=== PATIENT | female | born 1935 | race African-American/Black ===

== ENCOUNTER 2017-07-11 12:03 | Observation (INO) | payer MEDICARE, MEDICAID ==
[2017-07-11 12:43] LABS: #Eosinphils 0.1 thou/uL (0.0-0.7); #Lymphocytes 1.5 thou/uL (1.20-3.40); #Neutrophils 8.9 thou/uL (1.40-6.50); %Basophils 0.2 % (0.0-1.0); %Lymphocytes 12.7 % (21.0-51.0); %Neutrophils 77.1 % (42.0-75.0); Hemoglobin 8.9 g/dL (12.0-16.0); Mean Corpuscular HGB CONC 29.9 g/dL (32.0-36.0); Mean Corpuscular Hemoglobin 26.3 pg (27.0-31.0); Mean Platelet Volume 6.3 fL (7.4-10.4); Platelet Count 329 thou/uL (130-400); RBC Distribution Width 11.3 % (11.5-14.5); White Blood Cell (WBC) Count 11.5 thou/uL (4.8-10.8)
[2017-07-11 13:00] LABS: Hypochromia SLIGHT = 6-15 cells (100X) (0-5/hpf); MDiff Complete? YES; PLT Morphology Comment Appears Adequate; Polychromasia SLIGHT = 2-3 cells (100X) (0-2/hpf)
[2017-07-11 13:13] LABS: CKMB 0.4 ng/mL (0-6.6); Troponin I Less than 0.010 ng/mL (< 0.028)
[2017-07-11 13:19] LABS: Anion Gap 15 mmol/L (10-20); BUN (Urea Nitrogen) 18 mg/dL (9.8-20.1); Calc. Creatinine Clearance 0 mL/min (70-130); Calcium 9.5 mg/dL (7.8-10.44); Carbon Dioxide 24 mmol/L (23-31); Chloride 95 mmol/L (98-107); Estimated GFR-MDRD 60; Glucose 128 mg/dL (83-110); Potassium 3.5 mmol/L (3.5-5.1); Sodium 130 mmol/L (136-145)
[2017-07-11 13:33] LABS: Bilirubin Negative (Negative); Blood, Urine Negative (Negative); Clarity CLOUDY (Clear); Glucose, Urine (Dipstick) Negative (Negative); Leukocyte Negative (Negative); Nitrite Negative (Negative); Protein, Urine (Dipstick) Negative (Neg-Trace); Urobilinogen 0.2 mg/dL (0.2-1.0); pH, Urine 6.5 (5.0-9.0)
[2017-07-11 16:22] LABS: Lactic Acid 4.8 mmol/L (0.5-2.2)
[2017-07-11] MEDS ORDERED: Acetaminophen 325 MG TAB PO PRN (19:18)
[2017-07-11] MEDS ORDERED: Ondansetron HCl/PF 4 MG/2 ML Vial IVP PRN (19:18)
[2017-07-11] MEDS ORDERED: Ondansetron ODT 4 MG TAB SL PRN (19:18)
[2017-07-11 19:39] VITALS: BMI 38.7
[2017-07-12] MEDS ORDERED: HYDROcodone/Acetaminophen 5/325 mg Tablet PO PRN (04:02)
[2017-07-12] MEDS ORDERED: Ondansetron ODT 4 MG TAB PO PRN (04:02)
[2017-07-12] MEDS ORDERED: Acetaminophen 325 MG TAB PO PRN (04:02)
[2017-07-12] MEDS ORDERED: Sodium Chloride 0.9% 1,000 ML IV SCH (04:02)
[2017-07-12] MEDS ORDERED: Enoxaparin Sodium 30 MG/0.3 ML SYRINGE SC SCH (04:15)
[2017-07-12 05:31] LABS: #Basophils 0.1 thou/uL (0.0-0.2); #Eosinphils 0.2 thou/uL (0.0-0.7); #Lymphocytes 1.6 thou/uL (1.20-3.40); #Monocytes 1.1 thou/uL (0.11-0.59); %Basophils 0.7 % (0.0-1.0); %Eosinophils 1.6 % (0.0-10.0); %Lymphocytes 14.9 % (21.0-51.0); %Monocytes 10.1 % (0.0-10.0); %Neutrophils 72.8 % (42.0-75.0); Hemoglobin 8.6 g/dL (12.0-16.0); Mean Corpuscular HGB CONC 30.8 g/dL (32.0-36.0); Mean Corpuscular Hemoglobin 26.8 pg (27.0-31.0); Mean Corpuscular Volume 87.1 fl (81.0-99.0); Mean Platelet Volume 6.6 fL (7.4-10.4); Platelet Count 337 thou/uL (130-400); RBC Distribution Width 11.3 % (11.5-14.5); Red Blood Cell (RBC) Count 3.22 mill/uL (4.20-5.40)
[2017-07-12 06:06] LABS: Anion Gap 13 mmol/L (10-20); BUN (Urea Nitrogen) 16 mg/dL (9.8-20.1); Calc. Creatinine Clearance 62 mL/min (70-130); Calcium 9.6 mg/dL (7.8-10.44); Carbon Dioxide 27 mmol/L (23-31); Chloride 100 mmol/L (98-107); Estimated GFR-MDRD 65; Glucose 95 mg/dL (83-110); Magnesium 1.1 mg/dL (1.6-2.6); Potassium 3.5 mmol/L (3.5-5.1); Sodium 136 mmol/L (136-145)
[2017-07-12] MEDS ORDERED: Temazepam 15 MG CAP PO PRN (10:00)
[2017-07-12] MEDS ORDERED: Levothyroxine Sodium 75 MCG TAB PO SCH ×2 (10:00→11:00)
[2017-07-12] MEDS ORDERED: Metoprolol Tartrate 50 MG TAB PO SCH ×3 (10:01→21:00)
[2017-07-12] MEDS ORDERED: Losartan/Hydrochlorothiazide 100 mg/25 mg Tablet PO SCH ×2 (10:01→11:00)
[2017-07-12] MEDS ORDERED: Non-Formulary Item 1 EACH (Risperidone [Risperidone] 2 MG) PO SCH (10:01)
--- NOTE | 2017-07-12 10:53 | HP ---
PRIMARY CARE PHYSICIAN: Brian Tavarez M.D. HISTORY OF PRESENT ILLNESS: This is an 82-year-old female with a known history of hypertension, CHF, hypothyroidism, type 2 diabetes and chronic stage 3 renal disease who presents with a chief complaint of hypotension. It appears that the patient has been struggling with hypertension and has been newly started on outpatient medications earlier in the day - amlodipine. She was brought into the Emergency Department with generalized feelings of unwellness. At the time of my evaluation, the patient has been given of fluid resuscitation. Her vital signs are stable and she reports feeling significantly better. Her [id number] is with her at bedside. REVIEW OF SYSTEMS: As per HPI. Constitutional: No recent fevers or chills. No recent weight changes. HEENT: No recent headaches, dizziness or blurry vision that are new. Cardiovascular: No chest pain, chest pressure, shortness of breath, left-sided arm numbness or tingling or diaphoretic episodes. Respiratory: No recent sinusitis, cough, congestion, shortness of breath, dyspnea with exertion. Gastrointestinal: No recent nausea, vomiting, abdominal discomfort, diarrhea or constipation. The patient reports a retained appetite. Genitourinary: No new change in urinary frequency quantity or quality. Denies dysuria. Musculoskeletal: Other than generalized fatigue, malaise. No myalgias or arthralgias. Remainder of review of systems otherwise negative. PAST MEDICAL HISTORY: As above, includes the following; 1. Obesity. 2. Hypertension. 3. CHF. 4. Obstructive sleep apnea, on CPAP. 5. Hypothyroidism. 6. Type 2 diabetes. 7. Chronic kidney disease. 8. Depression. FAMILY HISTORY: No known history of blood pressure lability, but does have a family history of hypertension. HOME MEDICATIONS: Please see EMR for full details other than the amlodipine, which was started earlier today. No recent changes to her home medications regimen over the last 2 weeks. Patient states she takes her own medications daily directly from the medication bottles and does not use a pill organizer. ALLERGIES: CIMETIDINE, unknown reaction. SOCIAL HISTORY: The patient is here with family. She lives at home. She endorses being a FULL CODE at this point in time. Denies any active alcohol, tobacco or illicit drug use. PHYSICAL EXAMINATION: VITAL SIGNS: Temperature 97.6, heart rate of 60, respirations 16, satting 96% on 2 liters nasal cannula and blood pressure 179/84. GENERAL: The patient is awake, alert and appropriate, seen in the hospital bed , provides a reasonable history. No acute distress. HEENT: Moist mucous membrane. Equal ocular motions are intact. No posterior oropharyngeal exudates or erythema. CARDIOVASCULAR: S1 and S2. Soft heart tones. A 3/5 systolic ejection murmur appreciated, nonradiating. Pulses 2+ bilateral upper extremities. No pitting pedal edema. RESPIRATORY: Grossly clear to auscultation. No wheezes, rales or rhonchi. Reasonable air movement. ABDOMEN: Obese, large, nontender to palpation. Bowel sounds are present. MUSCULOSKELETAL: Moving all 4 extremities independently. LABORATORY DATA AND IMAGING DATA: WBC 11.5, hemoglobin 8.9, hematocrit 29.9, platelets 329, neutrophils 77.1. Sodium 130, potassium 3.5, chloride 95, bicarbonate 24, BUN 18, creatinine 1.06, glucose 128, lactic acid is 4.8 and calcium 9.5. Troponin less than 0.01. UA is bland. ASSESSMENT AND PLAN: An 82-year-old female presents with chief complaint of; 1. Feeling poorly, status post new amlodipine. She was found to be hypotensive in the Emergency Department. At the time of presentation, she is currently normotensive. Continue with her home regimen. Hold amlodipine. Closely monitor vital signs. 2. Hypertension. See discussion above. 3. Known history of type 2 diabetes. Continue the patient on her home regimen. 4. Patient has a history of congestive heart failure. Cautious fluid resuscitation and close monitoring of her respiratory status. 5. Obesity, stable. 6. Anemia, suspect a chronic component. This patient is otherwise hemodynamically stable. We will recheck and evaluate for any evidence of a bleed. 7. Elevated lactic acid. Unclear etiology as the patient is otherwise clinically stable. We will recheck at this point in time and closely monitor for clearance. Admit the patient in observation status with telemetry observation, FULL CODE. Thank you for asking me to care for the patient. Questions or concerns, contact me at [facility]. [facility]ENTER[facility]
[2017-07-12] MEDS ORDERED: risperiDONE 1 MG TAB PO SCH ×2 (11:00→21:00)
[2017-07-12 11:03] LABS: Lactic Acid 1.9 mmol/L (0.5-2.2)
[2017-07-12] MEDS ORDERED: Furosemide 20 MG TAB PO PRN (14:00)
[2017-07-12 14:58] VITALS: BP 143/78; TEMP 98.4
[2017-07-13] MEDS ORDERED: Levothyroxine Sodium 75 MCG TAB PO SCH (06:00)
[2017-07-13] MEDS ORDERED: Ferrous Sulfate 325 MG TAB PO SCH (09:00)
[2017-07-13] MEDS ORDERED: Losartan/Hydrochlorothiazide 100 mg/25 mg Tablet PO SCH (09:00)
[2017-07-13] MEDS ORDERED: Simvastatin 5 MG TAB PO SCH (09:00)
[2017-07-15] MEDS ORDERED: metFORMIN 500 MG TAB PO SCH (08:00)
== END 2017-07-12 16:00 | disposition home or self-care (01) ==
LOC: ERS 12:03 → 2SW 19:01
PROVIDERS: ADMIT Internal Medicine; ATTEND Internal Medicine
DX: I95.9 Hypotension, unspecified (principal); I13.0 Hypertensive heart and chronic kidney disease with heart failure and stage 1 through stage 4 chronic kidney disease, or unspecified chronic kidney disease; E11.22 Type 2 diabetes mellitus with diabetic chronic kidney disease; N18.3 Chronic kidney disease, stage 3 (moderate); I50.9 Heart failure, unspecified; E03.9 Hypothyroidism, unspecified; G47.33 Obstructive sleep apnea (adult) (pediatric); F32.9 Major depressive disorder, single episode, unspecified; R74.0 Nonspecific elevation of levels of transaminase and lactic acid dehydrogenase [LDH]; F20.9 Schizophrenia, unspecified; Z99.89 Dependence on other enabling machines and devices; E66.9 Obesity, unspecified; Z68.38 Body mass index [BMI] 38.0-38.9, adult; Z87.891 Personal history of nicotine dependence; Z79.84 Long term (current) use of oral hypoglycemic drugs; Z79.899 Other long term (current) drug therapy; Z88.8 Allergy status to other drugs, medicaments and biological substances; Z95.0 Presence of cardiac pacemaker; Z90.49 Acquired absence of other specified parts of digestive tract
CPT/HCPCS: 80048 ×2; 81003; 82553; 83605 ×2; 83735; 84484; 85025 ×2; 93005; 96360; 96372; 97139; 99285; G0378; 36415; J1650

== ENCOUNTER 2017-07-27 04:15 | Observation (INO) | payer MEDICARE, MEDICAID ==
[2017-07-27 04:55] LABS: #Eosinphils 0.4 thou/uL (0.0-0.7); #Lymphocytes 1.9 thou/uL (1.20-3.40); #Monocytes 0.9 thou/uL (0.11-0.59); %Basophils 0.4 % (0.0-1.0); %Eosinophils 3.5 % (0.0-10.0); %Lymphocytes 18.5 % (21.0-51.0); %Monocytes 8.7 % (0.0-10.0); %Neutrophils 68.9 % (42.0-75.0); Hemoglobin 9.7 g/dL (12.0-16.0); Mean Corpuscular HGB CONC 31.4 g/dL (32.0-36.0); Mean Corpuscular Hemoglobin 26.9 pg (27.0-31.0); Mean Corpuscular Volume 85.8 fl (81.0-99.0); Mean Platelet Volume 6.7 fL (7.4-10.4); Platelet Count 339 thou/uL (130-400); RBC Distribution Width 11.8 % (11.5-14.5); Red Blood Cell (RBC) Count 3.61 mill/uL (4.20-5.40); White Blood Cell (WBC) Count 10.1 thou/uL (4.8-10.8)
[2017-07-27 05:13] LABS: ALT (SGPT) 13 U/L (8-55); AST (SGOT) 26 U/L (5-34); Alkaline Phosphatase 66 U/L (40-150); Anion Gap 18 mmol/L (10-20); BUN (Urea Nitrogen) 17 mg/dL (9.8-20.1); Bilirubin, Total 0.4 mg/dL (0.2-1.2); Calc. Creatinine Clearance 0 mL/min (70-130); Calcium 9.4 mg/dL (7.8-10.44); Carbon Dioxide 23 mmol/L (23-31); Chloride 97 mmol/L (98-107); Estimated GFR-MDRD 61; Globulin 3.6 g/dL (2.4-3.5); Glucose 119 mg/dL (83-110); Potassium 4.5 mmol/L (3.5-5.1); Protein, Total 7.6 g/dL (6.0-8.3); Sodium 133 mmol/L (136-145)
[2017-07-27 05:17] LABS: CKMB 0.5 ng/mL (0-6.6); Troponin I Less than 0.010 ng/mL (< 0.028)
[2017-07-27] MEDS ORDERED: Furosemide 40 MG/4 ML VIAL ONE (05:39)
[2017-07-27] MEDS ORDERED: Nitroglycerin 2% Ointment 1 INCH/1 GM Packet ONE (05:39)
[2017-07-27] MEDS ORDERED: Loratadine 10 MG TAB PO PRN (07:56)
[2017-07-27] MEDS ORDERED: cloNIDine 0.1 MG TAB PO PRN (07:56)
[2017-07-27] MEDS ORDERED: Acetaminophen 325 MG TAB PO PRN (07:56)
[2017-07-27] MEDS ORDERED: Benzonatate 100 MG CAP PO PRN (07:56)
[2017-07-27] MEDS ORDERED: hydrALAZINE 20 MG/ML VIAL SLOW IVP PRN (07:56)
[2017-07-27] MEDS ORDERED: HumaLOG 300 UNITS/3 ML VIAL SC PRN ×2 (07:56)
[2017-07-27] MEDS ORDERED: Milk Of Magnesia 30 ML UDCUP PO PRN (07:56)
[2017-07-27] MEDS ORDERED: Dextrose 50% Abboject 50 ML SYRINGE SLOW IVP PRN (07:56)
[2017-07-27] MEDS ORDERED: Diabetic Tussin 200 MG/10 ML UDCUP PO PRN (07:56)
[2017-07-27] MEDS ORDERED: Senokot 8.6 MG TAB PO PRN (07:56)
[2017-07-27] MEDS ORDERED: Calcium Carbonate 500 MG ChewTAB PO PRN (07:56)
[2017-07-27] MEDS ORDERED: Ondansetron HCl/PF 4 MG/2 ML Vial IVP PRN ×2 (07:56)
[2017-07-27] MEDS ORDERED: Mag-Al 1200 mg/1200 mg/30 ML UDCUP PO PRN (07:56)
[2017-07-27] MEDS ORDERED: Dextrose 5% in Water 1,000 ML IV PRN (07:56)
[2017-07-27] MEDS ORDERED: Bisacodyl 5 MG TAB PO PRN (07:56)
[2017-07-27] MEDS ORDERED: Nitroglycerin 0.4 MG TAB (25 Tab Bottle) SL PRN (07:56)
[2017-07-27 08:11] VITALS: BMI 38.0
[2017-07-27] MEDS ORDERED: Temazepam 15 MG CAP PO PRN (09:13)
--- NOTE | 2017-07-27 09:34 | RAD ---
RADIOGRAPH CHEST 1 VIEW: Date: 07/27/17. Time: 4:48 a.m. HISTORY: An 82-year-old female with dyspnea. COMPARISON: 01/09/17. FINDINGS: Cardiomegaly. Pulmonary vascular engorgement. Diffuse mild interstitial densities suspicious for pu lmonary interstitial edema. No pneumothorax. Left subclavian pacemaker. Findings are very similar to the prior study. IMPRESSION: Evidence for congestive heart failure. LUNA [] POS: YNES
[2017-07-27] MEDS ORDERED: Levothyroxine Sodium 75 MCG TAB PO SCH (10:00)
[2017-07-27] MEDS ORDERED: Metoprolol Tartrate 100 MG TAB PO SCH ×2 (10:00→10:09)
[2017-07-27] MEDS ORDERED: Ferrous Sulfate 325 MG TAB PO SCH (10:00)
[2017-07-27] MEDS ORDERED: risperiDONE 1 MG TAB PO SCH (10:00)
[2017-07-27] MEDS: Enoxaparin Sodium 40 MG/0.4 ML SYRINGE SC SCH (10:07)
[2017-07-27] MEDS: Losartan/Hydrochlorothiazide 100 mg/25 mg Tablet PO SCH (10:09)
--- NOTE | 2017-07-27 11:04 | HP ---
PRIMARY CARE PHYSICIAN: Dr. Brian Tavarez. CHIEF COMPLAINT: Worsening shortness of breath. HISTORY OF PRESENT ILLNESS: Ms. Velasco is a very pleasant 82-year-old female with past medical histor y of diastolic congestive heart failure; hypertension; obstructive sleep apnea, on CPAP at night; chr onic kidney disease, stage 3; pacemaker placement due to sick sinus syndrome; and chronic respiratory failure, on home oxygen; who presented to the ER with the above-mentioned complaints. History is ma inly obtained by the patient herself, who is a little bit of a poor historian. Electronic medical re cords have been reviewed. The patient was actually recently admitted to our facility last month on 0 07/12/2017, at which time she was observed for low blood pressure after being started on new blood pre ssure medications. She was discharged without any problems at that time. Ms. Velasco reports that lately she has been noticing that moving around out of the house is becoming d ifficult for her. She wears her oxygen all the time when moving around, but she is getting more and more short of breath. She used to walk to her daughter's house in the neighborhood, but lately she h as not been able to do that and even walking around in the house is becoming problematic due to worse meena shortness of breath. She also reports a hacking cough, but denies any sick contacts, fever, chi lls, or phlegm production. She denies any chest pain. She lays on her side and cannot tell me if sh daryl has any orthopnea. She has not noticed any excessive swelling of her feet. She has seen Dr. Lopez from the Cardiology office in the past and has Lasix ordered to be used as needed basis. She, virgilemeterio balbir, has used it only probably once in the last 2-3 weeks. She also has history of restrictive lung di sease and follows up with Dr. Alexis and uses inhalers sparingly. She has used the inhalers, only f ew times in the last few weeks. Upon presentation to the emergency room, she was hemodynamically stable. She was given 1 DuoNeb en r oute and felt better by the time she presented to the ER. A chest x-ray done in the emergency room w as suggestive of fluid overload and she was found to be somewhat wheezy on presentation. She had non specific ST and T-wave changes in the EKG as well. She was given Lasix and transdermal nitroglycerin and is now being admitted for possible acute congestive heart failure exacerbation. Her BNP is mild ly elevated to 146. PAST MEDICAL HISTORY: 1. Chronic diastolic congestive heart failure. The patient does not remember being told about the C HF before. She had an echocardiogram done in 12/2016, which suggested diastolic dysfunction with pre served EF of 65%. 2. Diabetes mellitus, type 2. 3. Obstructive sleep apnea, on CPAP at night. 4. Chronic respiratory failure, on home oxygen. 5. Hypertension. 6. Hypothyroidism. 7. Sick sinus syndrome, status post pacemaker placement. 8. Chronic kidney disease. 9. History of esophageal stricture, status post dilatation in 2016. 10. Depression. PAST SURGICAL HISTORY: 1. Pacemaker placement. 2. EGD and colonoscopy. 3. Cholecystectomy. 4. Appendectomy. ALLERGIES: Cimetidine. FAMILY HISTORY: Mother of pneumonia. Father of old age. No history of stroke, heart dise ase, or cancer. SOCIAL HISTORY: She lives by herself, but her children live close by. She ambulates freely without the help of a walker and is able to take care of herself. CURRENT HOME MEDICATIONS: Listed as below. Zocor 10 mg daily, Lopressor 100 mg b.i.d., losartan/hyd rochlorothiazide 100/25 mg daily, levothyroxine 75 mcg daily, isosorbide mononitrate 60 mg daily, iro n 65 mg daily, Lasix 20 mg as needed, risperidone 2 mg p.o. b.i.d., metformin 500 mg p.o. t.i.d., tem azepam 15 mg at bedtime as needed. REVIEW OF SYSTEMS: The following complete review of systems was negative, unless otherwise mentioned in the HPI or below: Constitutional: Weight loss or gain, ability to conduct usual activities. Sk in: Rash, itching. Eyes: Double vision, pain. ENT/Mouth: Nose bleeding, neck stiffness, pain, te nderness. Cardiovascular: Palpitations, dyspnea on exertion, orthopnea. Respiratory: Shortness of breath, wheezing, cough, hemoptysis, fever, or night sweats. Gastrointestinal: Poor appetite, abdo viji pain, heartburn, nausea, vomiting, constipation, or diarrhea. Genitourinary: Urgency, frequen cy, dysuria, nocturia. Musculoskeletal: Pain, swelling. Neurologic/Psychiatric: Anxiety, depressi on. Allergy/Immunologic: Skin rash, bleeding tendency. It is negative except for those mentioned i n history and physical. LABORATORY EXAMINATION: CBC shows WBCs at 10.1, hemoglobin 9.7, platelet count of 337. No left shif t, no bandemia. Serum chemistry is rather unremarkable. Cardiac enzymes normal. BNP 146 and blood sugar 119. Chest x-ray, by my review, has evidence of fluid overload without any effusions or infilt rate. PHYSICAL EXAMINATION: VITAL SIGNS: Most recently, temperature 97.7, pulse of 62, respirations 22, saturating 96% on 2 lite rs nasal cannula, blood pressure 143/94. GENERAL EXAMINATION: In no acute distress, lying comfortably in bed. Family is at bedside. Awake, alert, oriented x3. HEENT EXAMINATION: Mucous membrane is moist and pink. No oropharyngeal exudate or erythema. Head i s normocephalic, atraumatic. Pupils equal and reactive to light and accommodation. Extraocular move ment intact. NECK: Supple without any lymphadenopathy, JVD, or bruit. CHEST EXAMINATION: Revealed bibasilar crackles, left greater than right, without any significant whe ezing. No rhonchi. Rate and rhythm is regular without any murmur, rubs, or gallops. ABDOMEN: Soft, nontender, nondistended with positive bowel sounds. No guarding, rebound, or rigidit y. EXTREMITIES: Free of any cyanosis, clubbing, or edema. SKIN: Free of any rashes or bruises. Feel warm and dry to touch. PSYCHIATRIC: Normal affect. IMPRESSION AND PLAN: 1. Dyspnea, most likely secondary to acute diastolic congestive heart failure exacerbation. There i s no evidence to suggest pneumonia. She also has some component of exacerbation of her restrictive l candis disease. She will be diuresed with close monitoring of her renal function and strict I's and O's . At this time, we will not repeat the echocardiogram, as it was recently done in 12/2016. She will be treated with nebulizers as well on an as needed basis and scheduled basis. Further management wi ll depend upon her clinical response. I have encouraged her to go back and follow up with her cardio logist in the outpatient setting, and at this time, we will continue her home medications. 2. History of obstructive sleep apnea. Continue CPAP while in the hospital at bedtime. 3. History of hypertension. We will resume her home medications including the isosorbide, amlodipin e, and beta shai and monitor closely. 4. Chronic anemia, stable. 5. History of hypothyroidism. We will resume her levothyroxine. 6. Diabetes mellitus. We will hold the metformin to prevent further renal injury given the diuresis at this time. Add insulin sliding scale. 7. History of sick sinus syndrome, status post pacemaker placement. 8. Code status: FULL CODE. Discussed with the patient in detail. 9. Deep venous thrombosis and gastrointestinal prophylaxis and p.r.n. medication orders. DISPOSITION: Ms. Janice Velasco is being admitted for mild acute diastolic congestive heart failure exace rbation. We will have her evaluated by physical therapist and occupational therapist. ESTIMATED LENGTH OF STAY: At this time is less than 2 midnights. Further management will depend upo n her clinical course.
[2017-07-27] MEDS: Furosemide 40 MG/4 ML VIAL SLOW IVP SCH (14:43)
[2017-07-27] MEDS: risperiDONE 1 MG TAB PO SCH (20:16)
[2017-07-27] MEDS: Metoprolol Tartrate 100 MG TAB PO SCH (20:16)
[2017-07-27] MEDS ORDERED: Simvastatin 5 MG TAB PO SCH (21:00)
[2017-07-28 05:42] LABS: #Basophils 0.1 thou/uL (0.0-0.2); #Eosinphils 0.3 thou/uL (0.0-0.7); #Lymphocytes 1.9 thou/uL (1.20-3.40); #Monocytes 1.1 thou/uL (0.11-0.59); #Neutrophils 7.7 thou/uL (1.40-6.50); %Basophils 0.5 % (0.0-1.0); %Eosinophils 2.8 % (0.0-10.0); %Lymphocytes 17.3 % (21.0-51.0); %Monocytes 10.1 % (0.0-10.0); %Neutrophils 69.3 % (42.0-75.0); Hemoglobin 9.7 g/dL (12.0-16.0); Mean Corpuscular HGB CONC 30.1 g/dL (32.0-36.0); Mean Corpuscular Volume 86.3 fl (81.0-99.0); Mean Platelet Volume 6.5 fL (7.4-10.4); Platelet Count 361 thou/uL (130-400); RBC Distribution Width 11.8 % (11.5-14.5); Red Blood Cell (RBC) Count 3.71 mill/uL (4.20-5.40); White Blood Cell (WBC) Count 11.1 thou/uL (4.8-10.8)
[2017-07-28 06:00] LABS: Anion Gap 16 mmol/L (10-20); BUN (Urea Nitrogen) 23 mg/dL (9.8-20.1); Calc. Creatinine Clearance 42 mL/min (70-130); Carbon Dioxide 30 mmol/L (23-31); Chloride 93 mmol/L (98-107); Estimated GFR-MDRD 43; Glucose 135 mg/dL (83-110); Potassium 3.6 mmol/L (3.5-5.1); Sodium 135 mmol/L (136-145)
[2017-07-28] MEDS ORDERED: Levothyroxine Sodium 75 MCG TAB PO SCH (06:00)
[2017-07-28] MEDS: Furosemide 40 MG/4 ML VIAL SLOW IVP SCH (06:49)
[2017-07-28 07:55] VITALS: TEMP 97.7
[2017-07-28] MEDS ORDERED: Ferrous Sulfate 325 MG TAB PO SCH (09:00)
[2017-07-28] MEDS: Metoprolol Tartrate 100 MG TAB PO SCH (09:55)
[2017-07-28] MEDS: Enoxaparin Sodium 40 MG/0.4 ML SYRINGE SC SCH (09:55)
[2017-07-28] MEDS: risperiDONE 1 MG TAB PO SCH (09:55)
[2017-07-28] MEDS: Losartan/Hydrochlorothiazide 100 mg/25 mg Tablet PO SCH (09:55)
[2017-07-28 11:38] VITALS: BP 136/67
--- NOTE | 2017-07-28 23:00 | DIS ---
DATE OF ADMISSION: 07/27/2017 DATE OF DISCHARGE: 07/28/2017 CONDITION AT THE TIME OF DISCHARGE: Stable and improved. DISCHARGE DIAGNOSES: 1. Mild acute on chronic diastolic congestive heart failure. 2. Mild exacerbation of restrictive airway disease, likely pulmonary fibrosis. 3. Diabetes mellitus, type 2. 4. Chronic respiratory failure, on home oxygen. 5. Obstructive sleep apnea, uses CPAP at home at night. 6. Hypertension. 7. Hypothyroidism. 8. Sick sinus syndrome, status post pacemaker placement. 9. Chronic kidney disease. 10. Depression. DISCHARGE MEDICATIONS: Home medications remain the same as admission medications. No changes were m alistair. Please see admission history and physical for further details. New medications are as follows: DuoNeb 3 mL nebulizer as needed every 6 hours and albuterol inhaler 1 puff every 6 hours as needed. The patient is instructed to take her Lasix 20 mg as needed basis. IN-HOUSE CONSULTATIONS: None. PROCEDURES: Done in the hospital, chest x-ray upon presentation, which showed pulmonary vascular con gestion. DISCHARGE DISPOSITION: Home with [facility]. PRIMARY CARE PHYSICIAN: Dr. Brian Tavarez. DISCHARGE FOLLOWUP: 1. PCP. 2. Pulmonary medicine, Dr. Alexis. 3. Cardiology, Dr. Freddie Lopez. HISTORY OF PRESENT ILLNESS: Ms. Janice Velasco is a very pleasant 82-year-old female with history of pulm onary fibrosis; chronic diastolic congestive heart failure; diabetes; chronic sleep apnea; and chroni c respiratory failure, on home oxygen, who presented to the emergency room with complaints of worseni ng shortness of breath of 2-3 week duration. Her BNP was mildly elevated at 146 and her chest x-ray showed mild pulmonary vascular congestion. She was admitted with a presumptive diagnosis of acute on chronic congestive heart failure, which is largely diastolic in nature based on the echo done in 2016. Please see admission history and physical for further details. The patient was started on IV diuretics and had very good response to it. She was back to her baseli ne very quickly. Her renal function did worsen somewhat with the diuresis with her GFR dropping from 61-43 and her creatinine bumped up from 1.04-1.42. At this time, Lasix was discontinued. The patie nt was ambulatory in the hallways with the help of the physical therapist. Home health was arranged for her as per her request. At the time of discharge, I discussed that she needs to follow up with her regional facilities manager to discuss he r chronic diastolic congestive heart failure, maybe need to start using her Lasix on a more frequent basis and not wait for weeks before taking it. With also regard to her history of chronic restrictiv e lung disease, I gave her prescription for inhalers and nebulizers to use as needed basis and follow up with her primary bleacher sulfite pulp, Dr. Alexis, in the clinic in the next few weeks. She verbalized understanding and reports that she is back to her baseline and ready to be discharged home. PHYSICAL EXAMINATION: She was seen and examined prior to discharge. Her physical exam includes, VITAL SIGNS: Temperature 97.7, pulse of 64, respirations 20, saturating 96% on 2 liters nasal cannul a, blood pressure of 136/67. GENERAL: In no acute distress, awake, alert, oriented x3. CHEST: Clear to auscultation without any wheezing, rales, or rhonchi. Rate and rhythm is regular wi thout any murmur, rubs, or gallops. ABDOMEN: Soft, nontender, nondistended. EXTREMITIES: Free of any cyanosis, clubbing, or edema. She will follow up with primary care physician in few days with outpatient BMP in 2 days to monitor h er renal function level. I have instructed her not to take the Lasix for the next few days and call her primary care physician if she has worsening shortness of breath and use her inhalers and nebulize rs. She verbalized understanding.
== END 2017-07-28 11:52 | disposition home or self-care (01) ==
LOC: ERS 04:15 → 2SW 06:01
PROVIDERS: ADMIT Internal Medicine; ATTEND Internal Medicine
DX: I13.0 Hypertensive heart and chronic kidney disease with heart failure and stage 1 through stage 4 chronic kidney disease, or unspecified chronic kidney disease (principal); E11.22 Type 2 diabetes mellitus with diabetic chronic kidney disease; I50.33 Acute on chronic diastolic (congestive) heart failure; N18.3 Chronic kidney disease, stage 3 (moderate); J45.901 Unspecified asthma with (acute) exacerbation; J96.10 Chronic respiratory failure, unspecified whether with hypoxia or hypercapnia; G47.33 Obstructive sleep apnea (adult) (pediatric); E03.9 Hypothyroidism, unspecified; I49.5 Sick sinus syndrome; F32.9 Major depressive disorder, single episode, unspecified; J84.10 Pulmonary fibrosis, unspecified; Z99.81 Dependence on supplemental oxygen; Z99.89 Dependence on other enabling machines and devices; Z88.8 Allergy status to other drugs, medicaments and biological substances; Z79.84 Long term (current) use of oral hypoglycemic drugs; Z79.899 Other long term (current) drug therapy; Z95.0 Presence of cardiac pacemaker; Z90.49 Acquired absence of other specified parts of digestive tract; Z98.890 Other specified postprocedural states
CPT/HCPCS: 71045; 80048; 80053; 82553; 82962; 83880; 84484; 85025 ×2; 93005; 94640 ×3; 96372; 96374; 96376 ×2; 97116; 97139; 99285; G0378; G8978; G8979; G8980; 36415; 36416; J1650; J1940; J7620

== ENCOUNTER 2017-08-18 13:53 | Observation (INO) | payer MEDICARE, MEDICAID ==
[~2017-08-18 13:53] MED LIST: ISOVUE-370 76%-LOCM 1 ML ONE
[2017-08-18 14:11] LABS: Hemoglobin 9.2 g/dL (12.0-16.0); Mean Corpuscular HGB CONC 31.5 g/dL (32.0-36.0); Mean Corpuscular Hemoglobin 27.8 pg (27.0-31.0); Mean Corpuscular Volume 88.5 fl (81.0-99.0); Mean Platelet Volume 6.8 fL (7.4-10.4); Platelet Count 314 thou/uL (130-400); RBC Distribution Width 11.7 % (11.5-14.5); Red Blood Cell (RBC) Count 3.32 mill/uL (4.20-5.40); White Blood Cell (WBC) Count 13.4 thou/uL (4.8-10.8)
[2017-08-18 14:16] LABS: INR-International Normal Ratio 1.1; PTT 31.9 SEC (22.9-36.1); Prothrombin Time 14.2 SEC (12.0-14.7)
[2017-08-18 14:23] LABS: #Eosinphils 0.1 thou/uL (0.0-0.7); #Lymphocytes 3.2 thou/uL (1.20-3.40); #Neutrophils 9.1 thou/uL (1.40-6.50); %Basophils 0.2 % (0.0-1.0); %Monocytes 7.1 % (0.0-10.0); %Neutrophils 67.7 % (42.0-75.0); MDiff Complete? YES; PLT Morphology Comment Appears Adequate; Polychromasia SLIGHT = 2-3 cells (100X) (0-2/hpf)
[2017-08-18 14:27] LABS: ALT (SGPT) 10 U/L (8-55); AST (SGOT) 14 U/L (5-34); Albumin 3.9 g/dL (3.4-4.8); Alkaline Phosphatase 64 U/L (40-150); Anion Gap 15 mmol/L (10-20); BUN (Urea Nitrogen) 18 mg/dL (9.8-20.1); Bilirubin, Total 0.3 mg/dL (0.2-1.2); Calc. Creatinine Clearance 0 mL/min (70-130); Calcium 9.5 mg/dL (7.8-10.44); Carbon Dioxide 27 mmol/L (23-31); Chloride 94 mmol/L (98-107); Estimated GFR-MDRD 45; Globulin 3.2 g/dL (2.4-3.5); Glucose 197 mg/dL (83-110); Potassium 3.7 mmol/L (3.5-5.1); Protein, Total 7.1 g/dL (6.0-8.3); Sodium 132 mmol/L (136-145)
[2017-08-18 14:28] LABS: CKMB 0.3 ng/mL (0-6.6); Troponin I Less than 0.010 ng/mL (< 0.028)
--- NOTE | 2017-08-18 15:14 | CT ---
CT BRAIN: Date: 08/18/17 PROVIDED CLINICAL HISTORY: Right-sided facial droop. FINDINGS: Comparison with 05/01/15. The ventricular system is unchanged in size and morphology. There is no evidence for intracranial hem orrhage or mass effect. Chronic microvascular ischemic changes are seen involving the cerebral white matter. The extracranial soft tissues and osseous structures demonstrate an unremarkable CT appearanc e. IMPRESSION: No evidence for intracranial hemorrhage or mass effect. Findings communicated to Dr. Laird in the emergency department at 1404 hours on 08/18/17. CODE CR. POS: [facility]
--- NOTE | 2017-08-18 15:23 | CT ---
CT ANGIO HEAD WITH IV CONTRAST AND 3D MIP RECONSTRUCTIONS WITH PERFUSION CT ANGIO GREAT VESSELS OF NECK WITH IV CONTRAST AND 3D MIP RECONSTRUCTIONS: PROVIDED CLINICAL HISTORY: Right-sided facial droop. FINDINGS: Comparison made with the noncontrast brain CT performed concurrently. There is no evidence for a focal high grade stenosis involving the great vessels bilaterally. Mild at herosclerotic plaque, calcified and noncalcified, involves the origin of each internal carotid artery . There is prominent medialized course of the distal common carotid and proximal internal carotid art eries within the region of the retropharynx. Evaluation of the upper chest is limited due to quantum mottle related to patient body habitus. Promi nence of the pulmonary vasculature and pulmonary interstitium are partially visualized. Regional nonv ascular soft tissues demonstrate an otherwise unremarkable CT appearance. The osseous structures demo nstrate no concerning lytic or blastic lesions. CT angiogram of the [place] demonstrates no evidence for focal vessel stenosis, branch occlu gisselle, or aneurysm. The perfusion images demonstrate no abnormal distribution of mean transit time or cerebral blood volu me to suggest ischemia or infarction. IMPRESSION: 1. No significant internal carotid artery stenosis. 2. Normal CT angiogram of [place] of [place]. 3. No perfusion evident to suggest ischemia or infarction. POS: [facility]
--- NOTE | 2017-08-18 15:40 | RAD ---
PORTABLE CHEST: Date: 08/18/17 PROVIDED CLINICAL HISTORY: Stroke alert. FINDINGS: Comparison with 08/13/17. Evaluation is limited by patient body habitus. Cardiac silhouette remains enlarged. Left subclavian c ardiac pacing device is again seen and in similar position. Prominence of the pulmonary vasculature a nd pulmonary interstitium persists. No evidence for pneumothorax. The left lung base is poorly evalua nakul on the basis of cardiomegaly and patient body habitus. IMPRESSION: Stable radiographic appearance of the chest. POS: LUC[facility]
--- NOTE | 2017-08-18 15:45 | HP ---
PRIMARY CARE PHYSICIAN: Dr. Brian Tavarez. REASON FOR ADMISSION: Stroke-like symptoms. HISTORY OF PRESENT ILLNESS: This is an 82-year-old -[place] female with a history of chronic respiratory failure, on home oxygen therapy as well as hypertension, diabetes, and morbid obesity, who was at [employer], she finished [employer] activity, and after that she was eating lunch at [employer]. She finished eating and she was completely fine at that time, but by the end of eating, she was less responsive. She slumped her head down. She had very poor response. She was talking groggy. The patient responded only that her oxygen is running out before all this started. Her son went outside in the car and took another tank. When he returned from the car with a new tank of oxygen, at that time, he noticed that his mother was less responsive and not talking well. He started on oxygen and somebody called paramedics. Paramedics came to the scene and they checked her oxygen level. They checked blood sugar, which was 150, and they started on oxygen. When they were loading her on in ambulance, patient started talking and the patient had full workup done in the emergency room including CT angio head and neck and CT brain, which was essentially unremarkable. The patient did not have any focal motor or sensory symptoms. When I saw this patient in the emergency room, symptoms were completely improved. The patient did not have any chest pain or palpitations. She did not have any headaches. She did not have any UTI symptoms. She denies any constipation, diarrhea, melena, or hematochezia. She denies any sore throat or flu-like symptoms. REVIEW OF SYSTEMS: The following complete review of systems was negative, unless otherwise mentioned in the HPI or below: Constitutional: Weight loss or gain, ability to conduct usual activities. Skin: Rash, itching. Eyes: Double vision, pain. ENT/Mouth: Nose bleeding, neck stiffness, pain, tenderness. Cardiovascular: Palpitations, dyspnea on exertion, orthopnea. Respiratory: Shortness of breath, wheezing, cough, hemoptysis, fever, or night sweats. Gastrointestinal: Poor appetite, abdominal pain, heartburn, nausea, vomiting, constipation, or diarrhea. Genitourinary: Urgency, frequency, dysuria, nocturia. Musculoskeletal: Pain, swelling. Neurologic/Psychiatric: Anxiety, depression. Allergy/Immunologic: Skin rash, bleeding tendency. Please see my HPI for pertinent positive and negative. All other review of system reviewed and negative except as mentioned in the HPI. PAST MEDICAL HISTORY: Chronic diastolic heart failure, based on last echocardiography in 12/2016 EF is 65% with diastolic dysfunction; diabetes, type 2; obstructive sleep apnea, on CPAP; chronic respiratory failure, on home oxygen therapy; morbid obesity; hypertension; hypothyroidism; history of sick sinus syndrome, required pacemaker; chronic kidney disease, stage 3; history of esophageal stricture, required dilatation in 2016. PAST PSYCHIATRIC HISTORY: Anxiety and depression. PAST SURGICAL HISTORY: Pacemaker placement, EGD and colonoscopy, cholecystectomy, appendicectomy. ALLERGIES: CIMETIDINE. FAMILY HISTORY: Mother of pneumonia. Father in his old age. No history of coronary artery disease, stroke, or cancer. SOCIAL HISTORY: She lives by herself. She has children nearby, who help her out. She ambulates without any help of a walker. She is using oxygen at home. She denies any tobacco, alcohol, or illicit drug abuse. CURRENT HOME MEDICATIONS: Based on our hospital record, the patient is on following medications, albuterol sulfate inhalation q.6 hourly p.r.n., Lasix 20 mg p.o. daily p.r.n., DuoNeb q.6 hourly p.r.n., iron 65 one tablet daily, Imdur 60 mg daily, Synthroid 75 mcg p.o. daily, losartan with hydrochlorothiazide 1 tablet p.o. daily, metformin 500 mg p.o. t.i.d., metoprolol 500 mg twice daily, risperidone 2 mg p.o. b.i.d., Zocor 10 mg p.o. at bedtime, Restoril 15 mg p.o. at bedtime. EMERGENCY ROOM COURSE: Reviewed. PHYSICAL EXAMINATION: VITAL SIGNS: On arrival, blood pressure 119/61, pulse 67, respiratory rate 16, temperature 97.4, saturation 100% on 2 liter oxygen, weight 90 kilograms. GENERAL: Patient is currently alert, awake, in no obvious acute distress. HEENT: Head: Normocephalic, atraumatic. Eyes: Pupils round and reactive to light. Extraocular muscle intact. ENT: Oropharynx within normal limits. Moist mucous membrane, no oral lesion, no pharyngeal erythema, no exudate. NECK: Supple, no JVD, no thyromegaly, no carotid bruit, no jugular venous distention. LUNGS: Clear to auscultation without any rhonchi or rales. CARDIAC: S1 and S2 regular without any murmur. ABDOMEN: Obesity present. Bowel sounds present, nontender, nondistended. No organomegaly, no mass, no suprapubic tenderness. BACK EXAMINATION: Unremarkable. No CVA tenderness. EXTREMITIES: Upper extremities, passive movement of all joints are normal. Lower extremities, no edema. Good peripheral pulsation, no calf tenderness. SKIN: No skin rash. HEMATOLOGICAL SYSTEM: No lymphadenopathy. PSYCHIATRIC: Normal affect. NEUROLOGIC: The patient is alert and oriented x3. Cranial nerves II-XII intact. Motor 5/5 in all 4 limbs. Sensation bilaterally symmetrical. Reflexes bilaterally symmetrical. No cerebellar sign. No pronator drift. Plantar bilateral flexor. SIGNIFICANT LABORATORY DATA: 1. EKG showing first-degree AV block, nonspecific ST-T changes, low voltage QRS complex. 2. CT brain, based on my review, no acute intracranial process. 3. CT angiography, head and neck perfusion, not showing any acute stroke. 4. Chest x-ray, based on my review, no acute cardiopulmonary process. 5. CBC: WBC of 13.4, hemoglobin 9.2, platelets 314. 6. INR 1.1. 7. BMP: Sodium 132, potassium 3.7, chloride 94, carbon dioxide 27, BUN 18, creatinine 1.35, glucose 197, calcium 9.5. 8. LFT: AST 14, ALT 10, alkaline phosphatase 64, albumin 3.9, CK-MB 0.3, troponin I less than 0.010. ASSESSMENT AND PLAN: 1. Stroke-like symptoms resolved within few minutes. At this point, history is not conclusive of any stroke clear cut and that is already ruled out with CT of brain and CT head and neck angiography with brain perfusion study. At this point, the patient does not have any focal neurological deficit and her speech is also normal. Hypoglycemia ruled out when they checked blood sugar with 150, suspected hypoxia-induced altered mental status is possible, orthostatic hypotension is also possible. We will keep this patient in hospital for observation. We will do neuro check every 4 hourly. We will obtain MRI brain to rule out any brain pathology. We will monitor on telemetry floor for any arrhythmias. We will check orthostatic vitals. 2. Chronic respiratory failure with hypoxia, on home oxygen therapy. We will continue oxygen 2-3 liters nasal cannula while in hospital. 3. Obstructive sleep apnea. The patient will continue her home CPAP machine while in hospital. 4. Diabetes, type 2. We will continue insulin as per sliding scale per protocol. We will continue metformin 500 mg p.o. t.i.d. 5. Hypothyroidism. We will continue Synthroid 75 mcg p.o. daily. 6. Dyslipidemia. We will continue Zocor 10 mg p.o. at bedtime. 7. Chronic obstructive pulmonary disease. Continue DuoNeb q.6 hourly p.r.n. 8. Hypertension. We will rule out orthostatic hypotension. Patient has relatively low blood pressure and that is why we will hold on losartan and hydrochlorothiazide therapy today as well as Imdur 60 mg p.o. daily today. 9. Hyponatremia, likely related with hydrochlorothiazide. 10. Chronic kidney disease, stage 3, likely related with underlying diabetic nephropathy. 11. Anemia, chronic, normocytic, normochromic. We will continue ferrous sulfate 325 mg p.o. daily. 12. Leukocytosis. We will check urinalysis to rule out any urinary tract infection. 13. Morbid opacity. Dietary education given. Weight loss education given. Healthy lifestyle measures discussed with the patient. 14. Anxiety with depression. We will continue risperidone 2 mg p.o. b.i.d. and Restoril 15 mg p.o. at bedtime p.r.n. 15. Deep venous thrombosis prophylaxis not needed, because we are expecting discharge in 24 hours. 16. Gastrointestinal prophylaxis, Pepcid 20 mg p.o. b.i.d. CODE STATUS: Patient is FULL CODE. Patient's daughter and son are surrogate decision maker. Disposition plan based on clinical course, likely within 24 hours. Plan of care discussed with the family member at bedside in the emergency room. LUIS
[2017-08-18] MEDS ORDERED: Eucerin (Mineral Oil/Petrolatum,White) 30 gm Jar TOP PRN (16:47)
[2017-08-18] MEDS ORDERED: Milk Of Magnesia 30 ML UDCUP PO PRN (16:47)
[2017-08-18] MEDS ORDERED: Acetaminophen 325 MG TAB PO PRN (16:47)
[2017-08-18] MEDS ORDERED: Temazepam 15 MG CAP PO PRN (16:47)
[2017-08-18] MEDS ORDERED: Ondansetron HCl/PF 4 MG/2 ML Vial IVP PRN (16:47)
[2017-08-18] MEDS ORDERED: Senokot 8.6 MG TAB PO PRN (16:47)
[2017-08-18] MEDS ORDERED: Chloraseptic Spray 180 ml Bottle PO PRN (16:47)
[2017-08-18] MEDS ORDERED: Sodium Chloride 0.65% Nasal 44 ML BOT EA NARE PRN (16:47)
[2017-08-18] MEDS ORDERED: HumaLOG 300 UNITS/3 ML VIAL SC PRN ×2 (16:47)
[2017-08-18] MEDS ORDERED: Diabetic Tussin 200 MG/10 ML UDCUP PO PRN (16:47)
[2017-08-18] MEDS ORDERED: hydrALAZINE 20 MG/ML VIAL SLOW IVP PRN (16:47)
[2017-08-18] MEDS ORDERED: Ondansetron ODT 4 MG TAB PO PRN (16:47)
[2017-08-18] MEDS ORDERED: Mag-Al 1200 mg/1200 mg/30 ML UDCUP PO PRN (16:47)
[2017-08-18] MEDS ORDERED: HYDROcodone/Acetaminophen 5/325 mg Tablet PO PRN (16:47)
[2017-08-18] MEDS ORDERED: Dextrose 50% Abboject 50 ML SYRINGE SLOW IVP PRN (16:47)
[2017-08-18] MEDS ORDERED: Zolpidem Tartrate 5 MG TAB PO PRN (16:47)
[2017-08-18] MEDS ORDERED: Dextrose 5% in Water 1,000 ML IV PRN (16:47)
[2017-08-18 17:06] VITALS: BMI 38.7
[2017-08-18 17:58] LABS: Troponin I Less than 0.010 ng/mL (< 0.028)
[2017-08-18] MEDS: metFORMIN 500 MG TAB PO SCH (19:52)
[2017-08-18] MEDS: risperiDONE 1 MG TAB PO SCH (20:54)
[2017-08-18] MEDS ORDERED: Simvastatin 5 MG TAB PO SCH (21:00)
[2017-08-18 21:58] LABS: Bilirubin Negative (Negative); Blood, Urine Negative (Negative); Clarity CLEAR (Clear); Glucose, Urine (Dipstick) Negative (Negative); Leukocyte Negative (Negative); Nitrite Negative (Negative); Protein, Urine (Dipstick) Negative (Neg-Trace); Specific Gravity, Urine 1.023 (1.002-1.036); Urobilinogen 0.2 mg/dL (0.2-1.0); pH, Urine 6.5 (5.0-9.0)
[2017-08-18 22:00] LABS: Bacteria/HPF None Seen HPF (None Seen); Hyaline Casts/LPF 0-3 HYALINE CAST LPF (0-3 Hyaline); Pathc Cast-AUWi Flag 0.14 (0-2.49); RBC/HPF 0-3 HPF (0-3); Squamous Epithelial 0-3 HPF (0-3); WBC/HPF 0-3 HPF (0-3)
[2017-08-19] MEDS ORDERED: Levothyroxine Sodium 75 MCG TAB PO SCH (06:00)
[2017-08-19 06:34] LABS: Cardiac Risk 3.2 (Less than 4.5)
[2017-08-19 08:00] VITALS: TEMP 98.1
[2017-08-19] MEDS ORDERED: Ferrous Sulfate 325 MG TAB PO SCH (08:00)
[2017-08-19] MEDS: risperiDONE 1 MG TAB PO SCH (08:49)
[2017-08-19] MEDS: metFORMIN 500 MG TAB PO SCH (08:50)
[2017-08-19] MEDS ORDERED: Aspirin 325 mg Enteric Coated Tablet PO SCH (09:00)
[2017-08-19 10:46] VITALS: BP 188/80
--- NOTE | 2017-08-19 11:00 | PDOC.PN ---
- Subjective Encounter Start Date: 08/19/17 Encounter Start Time: 07:30 -: old records requested/rev Patient seen and examined. No new complaints. No overnight events - Objective Resuscitation Status: Resuscitation Status FULL:Full Resuscitation MAR Reviewed: Yes Vital Signs & Weight: Vital Signs (12 hours) Temp Pulse Pulse Pulse Resp BP BP 08/19/17 09:00 89 89 H 143/70 H 08/19/17 08:00 98.1 F 89 89 H 08/19/17 07:34 75 80 188/80 H 08/19/17 07:15 98.1 F 75 18 08/19/17 03:33 98.0 F 65 16 08/18/17 23:26 97.7 F 70 20 BP BP Pulse Ox Pulse Ox 08/19/17 09:00 08/19/17 08:00 08/19/17 07:34 163/73 H 100 08/19/17 07:15 185/77 H 92 L 08/19/17 03:33 146/65 H 98 08/18/17 23:26 145/65 H 96 Weight Weight 197 lb 8 oz I&O: 08/18/17 08/19/17 08/20/17 06:59 06:59 06:59 Intake Total 850 480 Output Total 1500 Balance -650 480 Result Diagrams: 08/18/17 14:00 08/18/17 14:00 Additional Labs: Accuchecks 08/19/17 08/18/17 08/18/17 05:43 21:02 17:14 POC Glucose 124 H 155 H 123 H Radiology Reviewed by me: Yes EKG Reviewed by me: Yes Phys Exam - Physical Examination Constitutional: NAD HEENT: PERRLA, moist MMs, sclera anicteric Neck: no JVD, supple Respiratory: no wheezing, no rales, no rhonchi Cardiovascular: RRR, no significant murmur, no rub Gastrointestinal: soft, non-tender, no distention, positive bowel sounds Musculoskeletal: no edema, pulses present Neurological: non-focal, normal sensation, moves all 4 limbs Psychiatric: normal affect, A&O x 3 Skin: no rash, normal turgor Dx/Plan (1) Stroke-like symptom Code(s): R29.90 - UNSPECIFIED SYMPTOMS AND SIGNS INVOLVING THE NERVOUS SYSTEM Status: Acute (2) Anemia, normocytic normochromic Code(s): D64.9 - ANEMIA, UNSPECIFIED Status: Chronic (3) Asthma Code(s): J45.909 - UNSPECIFIED ASTHMA, UNCOMPLICATED Status: Chronic (4) Chronic respiratory failure with hypoxia Code(s): J96.11 - CHRONIC RESPIRATORY FAILURE WITH HYPOXIA Status: Chronic (5) Diabetes type 2, controlled Code(s): E11.9 - TYPE 2 DIABETES MELLITUS WITHOUT COMPLICATIONS Status: Chronic (6) Dyslipidemia Code(s): E78.5 - HYPERLIPIDEMIA, UNSPECIFIED Status: Chronic (7) Hypertension Code(s): I10 - ESSENTIAL (PRIMARY) HYPERTENSION Status: Chronic (8) Hyponatremia Code(s): E87.1 - HYPO-OSMOLALITY AND HYPONATREMIA Status: Chronic (9) Hypothyroidism Code(s): E03.9 - HYPOTHYROIDISM, UNSPECIFIED Status: Chronic (10) CARLOS on CPAP Code(s): G47.33 - OBSTRUCTIVE SLEEP APNEA (ADULT) (PEDIATRIC); Z99.89 - DEPENDENCE ON OTHER ENABLING MACHINES AND DEVICES Status: Chronic (11) Obesity (BMI 30-39.9) Code(s): E66.9 - OBESITY, UNSPECIFIED Status: Chronic - Plan cont current plan of care * mri is not possible due to pacemaker * neurowise stable and intact * medication reviewed as below * symptomatic treatment * discharge today * see discharge dominique. Review of Systems - Review of Systems ENT: negative: Ear Pain, Ear Discharge, Nose Pain, Nose Discharge, Nose Congestion, Mouth Pain, Mouth Swelling, Throat Pain, Throat Swelling, Other Respiratory: negative: Cough, Dry, Shortness of Breath, Hemoptysis, SOB with Excertion, Pleuritic Pain, Sputum, Wheezing Cardiovascular: negative: chest pain, palpitations, orthopnea, paroxysmal nocturnal dyspnea, edema, light headedness, other Gastrointestinal: negative: Nausea, Vomiting, Abdominal Pain, Diarrhea, Constipation, Melena, Hematochezia, Other Genitourinary: negative: Dysuria, Frequency, Incontinence, Hematuria, Retention , Other Musculoskeletal: negative: Neck Pain, Shoulder Pain, Arm Pain, Back Pain, Hand Pain, Leg Pain, Foot Pain, Other Skin: negative: Rash, Lesions, Steven, Bruising, Other - Medications/Allergies Allergies/Adverse Reactions: Allergies Allergy/AdvReac Type Severity Reaction Status Date / Time cimetidine [From Count Includes [facility]] Allergy Verified 07/11/17 19:41 cimetidine HCl [From Spoke] Allergy Verified 07/11/17 19:41 Medications: Current Medications Acetaminophen (Tylenol) 650 mg PO Q4H PRN PRN Reason: Headache/Fever or Pain Hydrocodone Bitart/Acetaminophen ([place] 5/325) 1 tab PO Q4H PRN PRN Reason: Moderate Pain (4-6) Al Hydroxide/Mg Hydroxide (Maalox) 30 ml PO Q6H PRN PRN Reason: Heartburn or Indigestion Albuterol/Ipratropium (Duoneb) 3 ml NEB [id number] PRN PRN Reason: SOB &/or Wheezing Aspirin (Ecotrin) 325 mg PO DAILY [facility] Last Admin: 08/19/17 08:49 Dose: 325 mg Dextrose/Water (Dextrose 50%) 25 gm SLOW IVP PRN PRN PRN Reason: Hypoglycemia Ferrous Sulfate (Feosol) 325 mg PO QAM-[facility] Last Admin: 08/19/17 08:49 Dose: 325 mg Glucagon (Glucagon) 1 mg IM PRN PRN PRN Reason: Hypoglycemia Guaifenesin (Robitussin Sf) 200 mg PO Q4H PRN PRN Reason: Cough Hydralazine HCl (Apresoline) 10 mg SLOW IVP Q4H PRN PRN Reason: Systolic BP > 180 Last Admin: 08/18/17 20:53 Dose: 10 mg Dextrose/Water (D5w) 1,000 mls @ 0 mls/hr IV .Q0M PRN; As Directed PRN Reason: Hypoglycemia Insulin Human Lispro (Humalog) 0 units SC .MODERATE SLIDING SC PRN PRN Reason: Moderate Correctional Scale Insulin Human Lispro (Humalog) 0 units SC .BEDTIME SLIDING SC PRN PRN Reason: Bedtime Correctional Scale Levothyroxine Sodium (Synthroid) 75 mcg PO 0600 [facility] Last Admin: 08/19/17 05:14 Dose: 75 mcg Magnesium Hydroxide (Milk Of Magnesium) 30 ml PO DAILYPRN PRN PRN Reason: Constipation Metformin HCl (Glucophage) 500 mg PO BID-[facility] Last Admin: 08/19/17 08:50 Dose: Not Given Mineral Oil/White Petrolatum (Eucerin Cream) 0 gm TOP BIDPRN PRN PRN Reason: Dry Skin Ondansetron HCl (Zofran Odt) 4 mg PO Q6H PRN PRN Reason: Nausea/Vomiting Ondansetron HCl (Zofran) 4 mg IVP Q6H PRN PRN Reason: Nausea/Vomiting Pantoprazole Sodium (Protonix) 40 mg PO DAILY [facility] Last Admin: 08/19/17 08:49 Dose: 40 mg Phenol (Chloraseptic [place] 180 Ml Bot) 0 ml PO PRN PRN PRN Reason: Sore Throat Risperidone (Risperidone) 2 mg PO BID [facility] Last Admin: 08/19/17 08:49 Dose: 2 mg Senna (Senokot) 2 tab PO HSPRN PRN PRN Reason: Constipation Simvastatin (Zocor) 10 mg PO HS [facility] Last Admin: 08/18/17 20:54 Dose: 10 mg Sodium Chloride ([place] Nasal [place] 0.65%) 0 ml EA NARE QIDPRN PRN PRN Reason: Nasal Congestion Temazepam (Restoril) 15 mg PO HSPRN PRN PRN Reason: Insomnia Zolpidem Tartrate (Ambien) 5 mg PO HSPRN PRN PRN Reason: Insomnia
--- NOTE | 2017-08-19 13:10 | DIS ---
DATE OF ADMISSION: 08/18/2017 DATE OF DISCHARGE: 08/19/2017 PRIMARY CARE PHYSICIAN: Dr. Brian Tavarez. DISCHARGE DISPOSITION: Home. PRIMARY DISCHARGE DIAGNOSIS: Stroke-like symptoms, but ruled out stroke. SECONDARY DISCHARGE DIAGNOSES: Obstructive sleep apnea on continuous positive airway pressure, obesi ty with body mass index 38, hypothyroidism, hyponatremia, hypertension, dyslipidemia, diabetes type 2 , chronic respiratory failure with hypoxia, asthma, normocytic normochromic anemia. PRIMARY PROCEDURE/OPERATION: None. RADIOLOGICAL INVESTIGATION: CT angiography head and neck with brain perfusion study negative for any stroke. CT brain negative for any acute process. Chest x-ray negative for any acute cardiopulmonar y process. SIGNIFICANT LABORATORY DATA: Hemoglobin 9.2. INR 1.1, creatinine 1.35. LFT normal. Cardiac enzyme s negative. LDL 49. Urinalysis normal. DISCHARGE MEDICATIONS: Proventil HFA 2 puffs q.6 hourly p.r.n., Lasix 20 mg p.o. daily p.r.n., DuoNe b q.6 hourly p.r.n., iron 65 one tablet daily, Imdur 60 mg p.o. daily, Synthroid 75 mcg p.o. daily, l osartan with hydrochlorothiazide one tablet p.o. daily, metformin 500 mg p.o. t.i.d., Lopressor 100 m g twice daily, risperidone 2 mg p.o. b.i.d., Zocor 10 mg p.o. at bedtime, Restoril 15 mg p.o. at bedt true p.r.n. CONTRAINDICATIONS: None. CODE STATUS: FULL CODE. INPATIENT CONSULTANTS: None. ALLERGIES: CIMETIDINE. DISCHARGE PLAN: Post hospital, the patient will follow up with primary care physician in 1 or 2 week s. HOSPITAL COURSE: An 82-year-old female who was admitted by me yesterday. Please see my HPI for furt her details. This patient was at [employer] and after [employer] activity when she was eating lunch, at that time she felt funny and she was less responsive. At that time, the patient's oxygen tank ran out an d when patient's son went to bring another oxygen tank from car, by that time, patient was less respo nsive and she was not talking and that is why they were worried about stroke and paramedics were call ed. Patient was started on oxygen and when patient was loaded to the ambulance, she started talking and she was completely normal when she arrived to emergency room. Considering stroke-like symptoms, patient had CT brain with perfusion study which was completely normal. CT brain was normal and chest x-ray was unremarkable. Routine blood test was also unremarkable. Patient was observed overnight i n telemetry floor. She remained neurologically intact. She did not have any new neurological defici t. 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 The patient is seen and examined at bedside today. Th e patient will continue all her previous medications. Please see my progress note from today for fur ther detail.
== END 2017-08-19 12:00 | disposition home or self-care (01) ==
LOC: ERS 13:53 → 2SE 16:15
PROVIDERS: ADMIT Internal Medicine; ATTEND Internal Medicine
DX: R29.90 Unspecified symptoms and signs involving the nervous system (principal); J96.11 Chronic respiratory failure with hypoxia; E03.9 Hypothyroidism, unspecified; E78.5 Hyperlipidemia, unspecified; J44.9 Chronic obstructive pulmonary disease, unspecified; E87.1 Hypo-osmolality and hyponatremia; D63.1 Anemia in chronic kidney disease; D72.829 Elevated white blood cell count, unspecified; G47.33 Obstructive sleep apnea (adult) (pediatric); F41.8 Other specified anxiety disorders; I13.0 Hypertensive heart and chronic kidney disease with heart failure and stage 1 through stage 4 chronic kidney disease, or unspecified chronic kidney disease; E11.22 Type 2 diabetes mellitus with diabetic chronic kidney disease; N18.3 Chronic kidney disease, stage 3 (moderate); I50.32 Chronic diastolic (congestive) heart failure; E66.01 Morbid (severe) obesity due to excess calories; Z68.38 Body mass index [BMI] 38.0-38.9, adult; Z88.8 Allergy status to other drugs, medicaments and biological substances; Z79.4 Long term (current) use of insulin; Z79.899 Other long term (current) drug therapy; Z95.0 Presence of cardiac pacemaker; Z99.81 Dependence on supplemental oxygen; Z98.890 Other specified postprocedural states
CPT/HCPCS: 0042T; 70450; 70496; 70498; 71045; 80053; 80061; 81001; 82553; 82962 ×2; 84484 ×2; 85025; 85610; 85730; 93005; 94760; 96374; 97139 ×4; 99285; G0378; G8987; G8988; G8989; 36415; 36416; J0360

== ENCOUNTER 2017-11-12 09:04 | Outpatient (CLI) | payer MEDICARE, MEDICAID | END 2017-11-12 09:05 | disposition home or self-care (01) | LOC: CP 09:04 | PROVIDERS: ATTEND Internal Medicine | DX: J84.10 Pulmonary fibrosis, unspecified (principal); G47.33 Obstructive sleep apnea (adult) (pediatric) ==

== ENCOUNTER 2017-11-25 12:30 | Inpatient (IN) | payer MEDICARE, MEDICAID ==
--- NOTE | 2017-11-25 13:31 | RAD ---
CHEST 1 VIEW: Date: 11/25/17 COMPARISON: 08/18/17. HISTORY: Weakness. FINDINGS: Left-sided transvenous pacemaker is again noted. Lung volumes are diminished, likely due to poor insp iratory effort. There are patchy interstitial and alveolar opacities throughout the lung parenchyma. Small left-sided effusion cannot be excluded. No pneumothorax. IMPRESSION: 1. Diminished lung volumes. 2. Interstitial and alveolar infiltrates along with effusion. Correlate for volume overload/heart fa ilure. POS: [facility]
[2017-11-25 14:25] LABS: #Eosinphils 0.2 thou/uL (0.0-0.7); #Lymphocytes 1.4 thou/uL (1.20-3.40); #Monocytes 0.8 thou/uL (0.11-0.59); #Neutrophils 9.3 thou/uL (1.40-6.50); %Basophils 0.3 % (0.0-1.0); %Lymphocytes 11.7 % (21.0-51.0); Hemoglobin 9.6 g/dL (12.0-16.0); Mean Corpuscular Hemoglobin 26.7 pg (27.0-31.0); Mean Corpuscular Volume 86.2 fL (78.0-98.0); Mean Platelet Volume 6.7 fL (7.4-10.4); Platelet Count 325 thou/uL (130-400); RBC Distribution Width 11.6 % (11.5-14.5); Red Blood Cell (RBC) Count 3.58 mill/uL (4.20-5.40); White Blood Cell (WBC) Count 11.8 thou/uL (4.8-10.8)
[2017-11-25] MEDS ORDERED: Furosemide 40 MG/4 ML VIAL ONE (14:28)
[2017-11-25 14:40] LABS: ALT (SGPT) 10 U/L (8-55); AST (SGOT) 15 U/L (5-34); Albumin 3.9 g/dL (3.4-4.8); Alkaline Phosphatase 88 U/L (40-150); Anion Gap 12 mmol/L (10-20); BUN (Urea Nitrogen) 15 mg/dL (9.8-20.1); Bilirubin, Total 0.4 mg/dL (0.2-1.2); CK (CPK) 54 U/L (29-168); Calc. Creatinine Clearance 0 mL/min (70-130); Calcium 9.6 mg/dL (7.8-10.44); Carbon Dioxide 33 mmol/L (23-31); Chloride 96 mmol/L (98-107); Estimated GFR-MDRD 50; Globulin 3.7 g/dL (2.4-3.5); Glucose 124 mg/dL (83-110); Lipase 17 U/L (8-78); Potassium 3.6 mmol/L (3.5-5.1); Protein, Total 7.6 g/dL (6.0-8.3); Sodium 137 mmol/L (136-145)
[2017-11-25 14:43] LABS: CKMB 0.4 ng/mL (0-6.6); Troponin I Less than 0.010 ng/mL (< 0.028)
[2017-11-25 18:17] LABS: Lactic Acid 4.1 mmol/L (0.5-2.2)
[2017-11-25] MEDS ORDERED: Mag-Al 1200 mg/1200 mg/30 ML UDCUP PO PRN (18:18)
[2017-11-25] MEDS ORDERED: Milk Of Magnesia 30 ML UDCUP PO PRN (18:18)
[2017-11-25] MEDS ORDERED: Dextrose 50% Abboject 50 ML SYRINGE SLOW IVP PRN (18:18)
[2017-11-25] MEDS ORDERED: Ondansetron HCl/PF 4 MG/2 ML Vial IVP PRN (18:18)
[2017-11-25] MEDS ORDERED: hydrALAZINE 20 MG/ML VIAL SLOW IVP PRN (18:18)
[2017-11-25] MEDS ORDERED: HumaLOG 300 UNITS/3 ML VIAL SC PRN (18:18)
[2017-11-25] MEDS ORDERED: Ondansetron ODT 4 MG TAB SL PRN (18:18)
[2017-11-25] MEDS ORDERED: Acetaminophen 325 MG TAB PO PRN (18:18)
[2017-11-25] MEDS ORDERED: Dextrose 5% in Water 1,000 ML IV PRN (18:18)
[2017-11-25] MEDS ORDERED: Benzonatate 100 MG CAP PO PRN (18:18)
[2017-11-25 18:24] LABS: Troponin I Less than 0.010 ng/mL (< 0.028)
[2017-11-25 19:33] VITALS: BMI 35.7
[2017-11-25] MEDS: Docusate 100 MG CAP PO SCH (20:25)
[2017-11-25 20:51] LABS: Troponin I 0.018 ng/mL (< 0.028)
[2017-11-25] MEDS ORDERED: risperiDONE 1 MG TAB PO SCH (22:30)
[2017-11-25] MEDS ORDERED: Metoprolol Tartrate 100 MG TAB PO SCH (22:30)
[2017-11-25] MEDS ORDERED: Temazepam 15 MG CAP PO SCH (22:30)
--- NOTE | 2017-11-26 00:27 | HP ---
PRIMARY CARE PHYSICIAN: Dr. Brian Tavarez. CHIEF COMPLAINT: Severe weakness. HISTORY OF PRESENT ILLNESS: Ms. Velasco is a pleasant 82-year-old female who has a history of diabetes mellitus as well as hypertension. She also has diastolic heart failure as well as a restrictive abby g disease. She was in her usual state of health until today. She says she was up taking a shower wh en suddenly she felt extremely weak. She has a helper in the home who she called to help her. She s ays that her caregiver helped her to sit on the commode and then she was drying herself off and then she says she started feeling extremely weak. She says she was awake and lucid during this whole time and she says that she asked for the caregiver to call 911, which she did and she remembers the ambul ance drivers coming to pick her up, she remembers the ride to the hospital and also remembers being p laced in the emergency room. She never lost consciousness. This was after I clarified the history a s before she had told the emergency room physician that when she sat on the commode, she did not eva mber anything else, but she actually did have total recall of everything. She says she has had an ep isode like this before. It happened a few months ago to a year. She is not sure what the etiology w as. During this time, she denied having any chest pain or shortness of breath. She denies feeling a ny palpitations. She felt bit dizzy, but then on further clarification of the dizziness, this was ac tually extreme weakness once again. She does not have any fevers, chills, or cough or congestion. S he says she last saw Dr. Alexis about a month ago and at that time, he wanted to send her to have a pulmonary function test done and she also sees Dr. Lopez as she has had a pacemaker placed and she say s that she typically has the pacemaker checked about every 3 months and it was due in this coming Dec ust. The patient denies feeling any more shortness of breath than usual. No increasing in lower ext remity edema, but she did say she drinks [address] of small bottle of water that she was told to drink and she is wondering if this may have contributed to this and she also says that she took 2 Tylenol PM last night, which she normally does not do. REVIEW OF SYSTEMS: All systems were reviewed except for that mentioned in the history of present ill ness and are negative. PAST MEDICAL HISTORY: Significant for chronic diastolic heart failure, diabetes mellitus. She has c hronic hypoxic respiratory failure. I suspect may be due to interstitial lung disease or pulmonary f ibrosis. She also has obstructive sleep apnea and hypertension as well as diabetes mellitus type 2. PAST SURGICAL HISTORY: She has had a pacemaker placed, appendectomy, and cholecystectomy. ALLERGIES: TAGAMET. SOCIAL HISTORY: She is . She lives alone. She has 5 children. Her daughter Jael is he r surrogate decision maker and she would like to be a F[employer]. FAMILY HISTORY: No known history of any inheritable diseases. HOME MEDICATIONS: She was not sure of her medications. There are some listed in the medical record, which will need to be clarified and these are albuterol inhaler, Lasix 20 mg as needed, DuoNeb p.r.n ., iron tablets, isosorbide mononitrate 60 mg daily, levothyroxine 75 mcg daily, losartan/hydrochloro thiazide 100/25 daily, Lopressor 50 mg 2 tablets twice a day, simvastatin 10 mg daily, temazepam 50 m g at bedtime, metformin 500 mg t.i.d., and risperidone 2 mg twice a day. PHYSICAL EXAMINATION: GENERAL: She is well-developed and well-nourished. She does not appear to be in any distress. VITAL SIGNS: Her blood pressure was reported as approximately 142/80, heart rate 72, respiratory rat e of 22, temperature is 98.3. She is on 3 liters nasal cannula satting around 90%. HEENT: Her pupils are equal, round, and reactive. Extraocular muscles are intact. Her sclerae are anicteric. Throat: No erythema, no exudates. NECK: No adenopathy, no bruits. LUNGS: She has got very fine dry crackles bilaterally throughout most of her lung garcia. CARDIOVASCULAR: She has a normal S1, S2. I do not appreciate an S3 or S4. No murmurs, clicks, or r ubs. ABDOMEN: Obese, it is soft, it is nontender, nondistended. Positive for bowel sounds. No rebound o r guarding. EXTREMITIES: There is no clubbing, cyanosis, no edema. NEUROLOGIC: The exam is grossly nonfocal. SKIN AND INTEGUMENT: There are no skin changes. No rash. LABORATORY RESULTS: Sodium is 137, potassium 3.6, chloride is 96, CO2 is 33, BUN of 15, creatinine 1 .24, glucose is 124. White blood cell count 11.8, hemoglobin 9.6, hematocrit is 30.9, platelet count is 325,000. X-RAY FINDINGS: EKG, it was low voltage, the rate was 72. She had some T-wave inversions in V3-V5. In her chest x-ray, she has got borderline cardiomegaly. She has some obscuring of the left hemidia phragm and increasing pulmonary vascular markings and what looks to be fluid or scar in the fissure o n the right. In looking at previous chest x-rays dating back to 2016, it appears essentially unchang ed. ASSESSMENT AND PLAN: This is an 82-year-old female who presents to the emergency room with what coul d be considered presyncope at most or severe generalized weakness. There was no loss of consciousnes s. It is unclear what contributed to this event. It is possible it could be related to her lung con dition. Her BNP was slightly elevated, but not more so than her last admission. She could have a li ttle bit of excess lung water, which could have pushed her over the edge or she could have had some t ype of underlying arrhythmia, which is less likely. She will be placed in observation. She has alre silviano been given IV Lasix in the ER. We will hold off on giving any additional Lasix at this time unti l she can be evaluated by her chart computer who would know her baseline function better. We will als o interrogate the pacemaker and trend her cardiac enzymes. We will also need to reconcile and restar t her regular medications and reassess her in the a.m. I suspect that she is not far off her usual b aseline.
[2017-11-26 02:25] LABS: #Basophils 0.1 thou/uL (0.0-0.2); #Eosinphils 0.4 thou/uL (0.0-0.7); #Lymphocytes 2.1 thou/uL (1.20-3.40); #Monocytes 1.2 thou/uL (0.11-0.59); #Neutrophils 8.5 thou/uL (1.40-6.50); %Basophils 0.5 % (0.0-1.0); %Eosinophils 3.4 % (0.0-10.0); %Monocytes 9.7 % (0.0-10.0); %Neutrophils 69.5 % (42.0-75.0); Hemoglobin 9.5 g/dL (12.0-16.0); Mean Corpuscular HGB CONC 31.4 g/dL (32.0-36.0); Mean Corpuscular Hemoglobin 27.1 pg (27.0-31.0); Mean Corpuscular Volume 86.2 fL (78.0-98.0); Mean Platelet Volume 6.7 fL (7.4-10.4); Platelet Count 307 thou/uL (130-400); RBC Distribution Width 11.6 % (11.5-14.5); Red Blood Cell (RBC) Count 3.52 mill/uL (4.20-5.40); White Blood Cell (WBC) Count 12.2 thou/uL (4.8-10.8)
[2017-11-26 02:39] LABS: Lactic Acid 1.8 mmol/L (0.5-2.2)
[2017-11-26 02:54] LABS: Anion Gap 12 mmol/L (10-20); BUN (Urea Nitrogen) 17 mg/dL (9.8-20.1); Calc. Creatinine Clearance 44 mL/min (70-130); Calcium 9.7 mg/dL (7.8-10.44); Carbon Dioxide 35 mmol/L (23-31); Chloride 94 mmol/L (98-107); Estimated GFR-MDRD 48; Glucose 134 mg/dL (83-110); Potassium 3.4 mmol/L (3.5-5.1); Sodium 138 mmol/L (136-145)
[2017-11-26] MEDS: Docusate 100 MG CAP PO SCH ×2 (08:22→21:27)
[2017-11-26] MEDS: Enoxaparin Sodium 40 MG/0.4 ML SYRINGE SC SCH (08:22)
[2017-11-26] MEDS ORDERED: Potassium Chloride 20 MEQ TAB PO SCH (08:45)
--- NOTE | 2017-11-26 11:02 | CON ---
DATE OF CONSULTATION: 11/26/2017 This is 70 minutes of time. At that time, greater than 50% was spent with the patient and/or the pat ient was seen in the hospital. CONSULTING PHYSICIAN: Dr. Alberts. HISTORY OF PRESENT ILLNESS: The patient is an 82-year-old female, who I have been asked to see in re manuelito to possible lung involvement related to this syncopal episode. The patient states that she took 2 Tylenol PM the night before admission. She got up and showered, went to the toilet, felt weak. S he had her care provider call 911, and she was subsequently brought to the hospital. She tells me th at she wears oxygen 24 hours a day 7 days a week. She also wears CPAP at night for a history of CARLOS. Review of her clinic chart demonstrates that she has restrictive lung impairment that is probably f rom obesity. She has a history of diastolic cardiac dysfunction also. She feels better at the current time. She has been walking around the room without much in the way o f problem. PAST MEDICAL HISTORY: 1. Obstructive sleep apnea. 2. Chronic diastolic heart failure. 3. Obesity. 4. Question of interstitial lung disease. PAST SURGICAL HISTORY: 1. Pacemaker placement. 2. Appendectomy. 3. Cholecystectomy. ALLERGIES: TAGAMET. SOCIAL HISTORY: , 5 children, nonsmoker, does not consume alcohol. MEDICATIONS PRIOR TO ADMISSION: Lasix, DuoNeb, isosorbide mononitrate, levothyroxine, Lopressor, sim vastatin, metformin, risperidone. REVIEW OF SYSTEMS: A 12-point review of systems is, otherwise, negative. PHYSICAL EXAMINATION: VITAL SIGNS: Temperature 98.1, pulse 69, respirations 20, O2 sat 93% on 3 liters, blood pressure 134 /63. GENERAL: She is awake and alert and in no distress. HEENT EXAM: Unremarkable. NECK: Without adenopathy or JVD. LUNGS: Clear without wheezing or rhonchi. CARDIAC: S1 and S2 regular, without murmur. ABDOMEN: Soft, nontender, obese. EXTREMITIES: No edema. X-RAY FINDINGS: Chest x-ray shows some volume overload. LABORATORY DATA: White blood cell count 12.2, hematocrit 30, platelet count 307. BNP level was 72. Sodium 138, potassium 3.4, chloride 94, CO2 of 35, BUN 17, creatinine 1.2, glucose 134. ASSESSMENT: 1. Presyncopal episode, which was probably secondary to the patient taking high doses of diphenhydra mine. I do not think this is an exacerbation of any pulmonary issue. 2. Chronic pulmonary issues including obstructive sleep apnea, diastolic cardiac dysfunction, and a question of restrictive impairment from intrinsic pulmonary issues. RECOMMENDATIONS: I think she could probably go home. She needs to avoid taking Tylenol PM in the fu ture. Continue low flow oxygen. I would stop her steroids, as I do not think that will be helpful i n this situation.
[2017-11-26] MEDS: HumaLOG 300 UNITS/3 ML VIAL SC PRN ×2 (11:49→17:39)
[2017-11-26] MEDS ORDERED: Melatonin 3 MG TAB PO PRN (14:28)
--- NOTE | 2017-11-26 14:30 | PDOC.PN ---
- Subjective Encounter Start Date: 11/26/17 Encounter Start Time: 10:30 Subjective: pt up in bed no complains - Objective Resuscitation Status: Resuscitation Status FULL:Full Resuscitation Vital Signs & Weight: Vital Signs (12 hours) Temp Pulse Pulse Pulse Pulse Resp BP 11/26/17 11:45 97.5 F L 97 20 11/26/17 11:32 69 16 11/26/17 10:55 75 85 142/77 H 11/26/17 08:40 80 81 134/68 11/26/17 08:15 98.1 F 69 20 11/26/17 08:00 98.1 F 69 20 11/26/17 06:13 77 16 11/26/17 04:31 98.3 F 80 14 BP BP BP Pulse Ox Pulse Ox Pulse Ox Pulse Ox 11/26/17 11:45 141/92 H 92 L 11/26/17 11:32 94 L 11/26/17 10:55 170/81 H 92 L 82 L 92 L 11/26/17 08:40 147/79 H 11/26/17 08:15 134/63 93 L 11/26/17 08:00 11/26/17 06:13 94 L 11/26/17 04:31 151/79 H 93 L Weight Weight 184 lb 11.2 oz I&O: 11/25/17 11/26/17 11/27/17 06:59 06:59 06:59 Intake Total 700 Output Total 1100 Balance -400 Result Diagrams: 11/26/17 01:59 11/26/17 01:59 Additional Labs: Accuchecks 11/26/17 11/25/17 11/25/17 10:41 20:58 17:22 POC Glucose 174 H 195 H 180 H Phys Exam - Physical Examination HEENT: PERRLA, moist MMs, sclera anicteric, TM's clear, oral pharynx no lesions , 2+ tonsils Neck: no nodes, no JVD, supple, full ROM Respiratory: no wheezing, no rales, no rhonchi, wheezing present, clear to auscultation bilateral Cardiovascular: RRR, no significant murmur, no rub, gallop, irregular Gastrointestinal: soft, non-tender, no distention, positive bowel sounds Musculoskeletal: no edema, pulses present, edema present Neurological: non-focal, normal sensation, moves all 4 limbs Dx/Plan (1) Pre-syncope Status: Acute (2) Restrictive airway disease Code(s): J98.4 - OTHER DISORDERS OF LUNG Status: Acute (3) Chronic respiratory failure with hypoxia Code(s): J96.11 - CHRONIC RESPIRATORY FAILURE WITH HYPOXIA Status: Chronic (4) Diabetes type 2, controlled Code(s): E11.9 - TYPE 2 DIABETES MELLITUS WITHOUT COMPLICATIONS Status: Chronic - Plan appreciate pulm recommendation. echo ordered. pt was on 3L this am -: will decrease to 2L. possible discharge if echo is normal. * . Review of Systems - Review of Systems Eyes: negative: Pain, Vision Change, Conjunctivae Inflammation, Eyelid Inflammation, Redness, Other ENT: negative: Ear Pain, Ear Discharge, Nose Pain, Nose Discharge, Nose Congestion, Mouth Pain, Mouth Swelling, Throat Pain, Throat Swelling, Other Respiratory: negative: Cough, Dry, Shortness of Breath, Hemoptysis, SOB with Excertion, Pleuritic Pain, Sputum, Wheezing Cardiovascular: negative: chest pain, palpitations, orthopnea, paroxysmal nocturnal dyspnea, edema, light headedness, other Gastrointestinal: negative: Nausea, Vomiting, Abdominal Pain, Diarrhea, Constipation, Melena, Hematochezia, Other - Medications/Allergies Allergies/Adverse Reactions: Allergies Allergy/AdvReac Type Severity Reaction Status Date / Time cimetidine [From Tagamet] Allergy Verified 07/11/17 19:41 cimetidine HCl [From Tagamet] Allergy Verified 07/11/17 19:41 Medications: Current Medications Acetaminophen (Tylenol) 650 mg PO Q4H PRN PRN Reason: Headache/Fever or Pain Last Admin: 11/26/17 08:22 Dose: 650 mg Al Hydroxide/Mg Hydroxide (Maalox) 30 ml PO Q6H PRN PRN Reason: Heartburn or Indigestion Albuterol/Ipratropium (Duoneb) 3 ml NEB [id number] PRN PRN Reason: SOB &/or Wheezing Albuterol/Ipratropium (Duoneb) 3 ml NEB [id number] [facility] Last Admin: 11/26/17 11:32 Dose: 3 ml Benzonatate (Tessalon) 100 mg PO Q4H PRN PRN Reason: Cough Dextrose/Water (Dextrose 50%) 25 gm SLOW IVP PRN PRN PRN Reason: Hypoglycemia Docusate Sodium (Colace) 100 mg PO BID [facility] Last Admin: 11/26/17 08:22 Dose: Not Given Enoxaparin Sodium (Lovenox) 40 mg SC 0900 [facility] Last Admin: 11/26/17 08:22 Dose: 40 mg Glucagon (Glucagon) 1 mg IM PRN PRN PRN Reason: Hypoglycemia Hydralazine HCl (Apresoline) 10 mg SLOW IVP Q4H PRN PRN Reason: Systolic BP > 180 Dextrose/Water (D5w) 1,000 mls @ 0 mls/hr IV .Q0M PRN; As Directed PRN Reason: Hypoglycemia Insulin Human Lispro (Humalog) 0 units SC .MODERATE SLIDING SC PRN PRN Reason: Moderate Correctional Scale Last Admin: 11/26/17 11:49 Dose: 2 unit Insulin Human Lispro (Humalog) 0 units SC .BEDTIME SLIDING SC PRN PRN Reason: Bedtime Correctional Scale Magnesium Hydroxide (Milk Of Magnesium) 30 ml PO DAILYPRN PRN PRN Reason: Constipation Melatonin (Melatonin) 3 mg PO HS PRN PRN Reason: Insomnia Pantoprazole Sodium (Protonix) 40 mg PO DAILY [facility] Last Admin: 11/26/17 08:22 Dose: 40 mg Sodium Chloride (Flush - Normal Saline) 10 ml IVF Q12HR [facility] Last Admin: 11/26/17 08:23 Dose: 10 ml Sodium Chloride (Flush - Normal Saline) 10 ml IVF PRN PRN PRN Reason: Saline Flush
[2017-11-27 05:12] LABS: Anion Gap 14 mmol/L (10-20); BUN (Urea Nitrogen) 24 mg/dL (9.8-20.1); Calc. Creatinine Clearance 45 mL/min (70-130); Calcium 9.4 mg/dL (7.8-10.44); Carbon Dioxide 29 mmol/L (23-31); Chloride 96 mmol/L (98-107); Estimated GFR-MDRD 49; Glucose 148 mg/dL (83-110); Sodium 135 mmol/L (136-145)
[2017-11-27] MEDS: Docusate 100 MG CAP PO SCH (09:16)
[2017-11-27] MEDS: Enoxaparin Sodium 40 MG/0.4 ML SYRINGE SC SCH (09:16)
[2017-11-27] MEDS: HumaLOG 300 UNITS/3 ML VIAL SC PRN (11:31)
--- NOTE | 2017-11-27 17:01 | PDOC.PN ---
- Subjective Encounter Start Date: 11/27/17 Encounter Start Time: 11:00 Subjective: pt up in bed no complains - Objective Resuscitation Status: Resuscitation Status FULL:Full Resuscitation Vital Signs & Weight: Vital Signs (12 hours) Temp Pulse Pulse Pulse Resp BP BP 11/27/17 13:39 84 156/71 H 11/27/17 11:33 89 14 11/27/17 11:26 97.7 F 82 19 11/27/17 10:46 94 75 180/83 H 140/78 11/27/17 08:55 97.6 F 95 20 11/27/17 05:50 74 16 BP Pulse Ox Pulse Ox Pulse Ox Pulse Ox 11/27/17 13:39 91 L 77 L 92 L 11/27/17 11:33 91 L 11/27/17 11:26 135/86 97 11/27/17 10:46 94 L 11/27/17 08:55 137/79 99 11/27/17 05:50 90 L Weight Weight 187 lb 11.2 oz I&O: 11/26/17 11/27/17 11/28/17 06:59 06:59 06:59 Intake Total 700 1200 Output Total 1100 1600 Balance -400 -400 Result Diagrams: 11/26/17 01:59 11/27/17 04:06 Additional Labs: Accuchecks 11/27/17 11/27/17 11/26/17 10:46 05:58 21:01 POC Glucose 156 H 144 H 235 H 11/26/17 11/26/17 17:30 06:31 POC Glucose 316 H 127 H Phys Exam - Physical Examination HEENT: PERRLA, moist MMs, sclera anicteric, TM's clear, oral pharynx no lesions , 2+ tonsils Neck: no nodes, no JVD, supple, full ROM mild crackles to bases Cardiovascular: RRR, no significant murmur, no rub, gallop, irregular Gastrointestinal: soft, non-tender, no distention, positive bowel sounds Musculoskeletal: no edema, pulses present, edema present Neurological: non-focal, normal sensation, moves all 4 limbs Dx/Plan (1) Pre-syncope Status: Acute (2) Restrictive airway disease Code(s): J98.4 - OTHER DISORDERS OF LUNG Status: Acute (3) Chronic respiratory failure with hypoxia Code(s): J96.11 - CHRONIC RESPIRATORY FAILURE WITH HYPOXIA Status: Chronic (4) Diabetes type 2, controlled Code(s): E11.9 - TYPE 2 DIABETES MELLITUS WITHOUT COMPLICATIONS Status: Chronic - Plan echo pending -: will discharge in am after echo read. -: continue cpap and oxygen. * . Review of Systems - Review of Systems ENT: negative: Ear Pain, Ear Discharge, Nose Pain, Nose Discharge, Nose Congestion, Mouth Pain, Mouth Swelling, Throat Pain, Throat Swelling, Other Respiratory: negative: Cough, Dry, Shortness of Breath, Hemoptysis, SOB with Excertion, Pleuritic Pain, Sputum, Wheezing Cardiovascular: negative: chest pain, palpitations, orthopnea, paroxysmal nocturnal dyspnea, edema, light headedness, other Gastrointestinal: negative: Nausea, Vomiting, Abdominal Pain, Diarrhea, Constipation, Melena, Hematochezia, Other - Medications/Allergies Allergies/Adverse Reactions: Allergies Allergy/AdvReac Type Severity Reaction Status Date / Time cimetidine [From AddFleetamet] Allergy Verified 07/11/17 19:41 cimetidine HCl [From AddFleetamet] Allergy Verified 07/11/17 19:41 Medications: Current Medications Acetaminophen (Tylenol) 650 mg PO Q4H PRN PRN Reason: Headache/Fever or Pain Last Admin: 11/26/17 08:22 Dose: 650 mg Al Hydroxide/Mg Hydroxide (Maalox) 30 ml PO Q6H PRN PRN Reason: Heartburn or Indigestion Albuterol/Ipratropium (Duoneb) 3 ml NEB [id number] PRN PRN Reason: SOB &/or Wheezing Albuterol/Ipratropium (Duoneb) 3 ml NEB [id number] [place] Last Admin: 11/27/17 11:33 Dose: 3 ml Benzonatate (Tessalon) 100 mg PO Q4H PRN PRN Reason: Cough Dextrose/Water (Dextrose 50%) 25 gm SLOW IVP PRN PRN PRN Reason: Hypoglycemia Docusate Sodium (Colace) 100 mg PO BID [facility] Last Admin: 11/27/17 09:16 Dose: 100 mg Ferrous Sulfate (Feosol) 325 mg PO DAILY [facility] Glucagon (Glucagon) 1 mg IM PRN PRN PRN Reason: Hypoglycemia Hydralazine HCl (Apresoline) 10 mg SLOW IVP Q4H PRN PRN Reason: Systolic BP > 180 Dextrose/Water (D5w) 1,000 mls @ 0 mls/hr IV .Q0M PRN; As Directed PRN Reason: Hypoglycemia Insulin Human Lispro (Humalog) 0 units SC .MODERATE SLIDING SC PRN PRN Reason: Moderate Correctional Scale Last Admin: 11/27/17 11:31 Dose: 2 unit Insulin Human Lispro (Humalog) 0 units SC .BEDTIME SLIDING SC PRN PRN Reason: Bedtime Correctional Scale Last Admin: 11/26/17 21:27 Dose: 2 unit Isosorbide Mononitrate (Imdur Er) 30 mg PO DAILY [facility] Levothyroxine Sodium (Synthroid) 75 mcg PO 0600 [facility] Magnesium Hydroxide (Milk Of Magnesium) 30 ml PO DAILYPRN PRN PRN Reason: Constipation Melatonin (Melatonin) 3 mg PO HS PRN PRN Reason: Insomnia Last Admin: 11/26/17 23:09 Dose: 3 mg Pantoprazole Sodium (Protonix) 40 mg PO DAILY [facility] Last Admin: 11/27/17 09:16 Dose: 40 mg Risperidone (Risperidone) 2 mg PO BID [facility] Simvastatin (Zocor) 10 mg PO DAILY [facility] Sodium Chloride (Flush - Normal Saline) 10 ml IVF Q12HR [facility] Last Admin: 11/27/17 09:17 Dose: 10 ml Sodium Chloride (Flush - Normal Saline) 10 ml IVF PRN PRN PRN Reason: Saline Flush
[2017-11-27 17:37] VITALS: BP 148/72; TEMP 99
[2017-11-27] MEDS ORDERED: risperiDONE 1 MG TAB PO SCH (21:00)
[2017-11-28] MEDS ORDERED: Levothyroxine Sodium 75 MCG TAB PO SCH (06:00)
[2017-11-28] MEDS ORDERED: Ferrous Sulfate 325 MG TAB PO SCH (09:00)
[2017-11-28] MEDS ORDERED: Simvastatin 5 MG TAB PO SCH (09:00)
== END 2017-11-27 18:50 | disposition home or self-care (01) | DRG 312 ==
LOC: ERS 12:30 → 2NO 17:16
PROVIDERS: ADMIT Internal Medicine; ATTEND Internal Medicine
DX: R55 Syncope and collapse (principal); I50.32 Chronic diastolic (congestive) heart failure; J96.11 Chronic respiratory failure with hypoxia; J98.4 Other disorders of lung; I11.0 Hypertensive heart disease with heart failure; E11.9 Type 2 diabetes mellitus without complications; E66.9 Obesity, unspecified; Z68.36 Body mass index [BMI] 36.0-36.9, adult; Z95.0 Presence of cardiac pacemaker; T45.0X5 Adverse effect of antiallergic and antiemetic drugs
CPT/HCPCS: 36415; 36416; 71045; 80048; 80053; 82550; 82553; 83605; 83690; 83880; 84484; 85025; 93005; 93306; 93798; 94640; 96374; A4216; G8978-GP-CJ; G8979-GP-CI; G8987-GO-CI; G8988-GO-CI; G8989-GO-CI; J1650; J1940; J2920; J7620

== ENCOUNTER 2017-12-29 15:33 | Inpatient (IN) | payer MEDICARE, MEDICAID ==
[2017-12-29 16:15] LABS: #Basophils 0.1 thou/uL (0.0-0.2); #Eosinphils 0.3 thou/uL (0.0-0.7); #Lymphocytes 1.5 thou/uL (1.20-3.40); #Monocytes 0.9 thou/uL (0.11-0.59); #Neutrophils 7.8 thou/uL (1.40-6.50); %Basophils 0.5 % (0.0-1.0); %Eosinophils 2.5 % (0.0-10.0); %Monocytes 8.9 % (0.0-10.0); Hemoglobin 9.8 g/dL (12.0-16.0); Mean Corpuscular HGB CONC 31.5 g/dL (32.0-36.0); Mean Corpuscular Hemoglobin 27.4 pg (27.0-31.0); Mean Corpuscular Volume 86.9 fL (78.0-98.0); Mean Platelet Volume 7.8 fL (7.4-10.4); Platelet Count 320 thou/uL (130-400); RBC Distribution Width 12.5 % (11.5-14.5); Red Blood Cell (RBC) Count 3.59 mill/uL (4.20-5.40); White Blood Cell (WBC) Count 10.5 thou/uL (4.8-10.8)
--- NOTE | 2017-12-29 16:17 | RAD ---
FRONTAL VIEW CHEST: INDICATIONS: Cough. COMPARISON: 11/25/2017 FINDINGS: There is marked enlargement of the cardiac silhouette with vascular congestion and bilateral pleural fluid. Patchy alveolar opacities bilaterally indicate edema. A left side subclavian approach cardia c pacing device remains in place. IMPRESSION: Evidence of decompensated congestive heart failure with pulmonary edema and bilateral pleural fluid. Continued imaging followup is recommended. POS: [facility]
[2017-12-29 16:37] LABS: ALT (SGPT) 14 U/L (8-55); AST (SGOT) 24 U/L (5-34); Albumin 3.7 g/dL (3.4-4.8); Alkaline Phosphatase 91 U/L (40-150); Anion Gap 15 mmol/L (10-20); BUN (Urea Nitrogen) 19 mg/dL (9.8-20.1); Bilirubin, Total 0.3 mg/dL (0.2-1.2); CK (CPK) 72 U/L (29-168); Calc. Creatinine Clearance 0 mL/min (70-130); Calcium 9.7 mg/dL (7.8-10.44); Carbon Dioxide 27 mmol/L (23-31); Chloride 99 mmol/L (98-107); Estimated GFR-MDRD 42; Globulin 4.1 g/dL (2.4-3.5); Glucose 145 mg/dL (83-110); Lipase 15 U/L (8-78); Potassium 3.8 mmol/L (3.5-5.1); Protein, Total 7.8 g/dL (6.0-8.3); Sodium 137 mmol/L (136-145)
[2017-12-29 16:41] LABS: CKMB 0.4 ng/mL (0-6.6); Troponin I Less than 0.010 ng/mL (< 0.028)
[2017-12-29 16:45] LABS: Bilirubin Negative (Negative); Blood, Urine Negative (Negative); Clarity CLEAR (Clear); Glucose, Urine (Dipstick) Negative (Negative); Leukocyte Negative (Negative); Nitrite Negative (Negative); Protein, Urine (Dipstick) Negative (Neg-Trace); Specific Gravity, Urine 1.009 (1.002-1.036); Urobilinogen 0.2 mg/dL (0.2-1.0)
[2017-12-29 17:10] LABS: Actual Bicarbonate (HCO3a) 31.4 mEq/L (22-28); CO2 Tension 50.8 mmHg (35.0-45.0); Hemoglobin (Hb) 9.1 g/dL (12.0-16.0); O2 Tension (PaO2) 69.9 mmHg (> 60.0); pH, Arterial 7.41 (7.35-7.45)
[2017-12-29 17:11] LABS: Analyzer IN Cardio ER; Calcium, Ionized 1.2 mmol/L (1.12-1.30); Puncture Site L.R.
[2017-12-29] MEDS ORDERED: Aspirin 325 MG TAB ONE (17:27)
[2017-12-29] MEDS ORDERED: Furosemide 40 MG/4 ML VIAL ONE (17:28)
[2017-12-29] MEDS ORDERED: Nitroglycerin 2% Ointment 1 INCH/1 GM Packet ONE (17:28)
[2017-12-29] MEDS ORDERED: Ondansetron HCl/PF 4 MG/2 ML Vial IVP PRN ×2 (19:40→21:01)
[2017-12-29] MEDS ORDERED: Ondansetron ODT 4 MG TAB SL PRN (19:40)
[2017-12-29 19:48] LABS: Troponin I Less than 0.010 ng/mL (< 0.028)
[2017-12-29 19:54] VITALS: BMI 38.5
[2017-12-29] MEDS ORDERED: Nitroglycerin 0.4 MG TAB (25 Tab Bottle) PO PRN (20:59)
[2017-12-29] MEDS ORDERED: Nitroglycerin 2% Ointment 1 INCH/1 GM Packet TOP SCH (21:00)
[2017-12-29] MEDS ORDERED: Acetaminophen 325 MG TAB PO PRN (21:01)
[2017-12-29] MEDS ORDERED: Nitroglycerin 2% Ointment 1 INCH/1 GM Packet TOP PRN (21:01)
[2017-12-29] MEDS ORDERED: Milk Of Magnesia 30 ML UDCUP PO PRN (21:01)
[2017-12-29] MEDS ORDERED: Ondansetron ODT 4 MG TAB PO PRN (21:01)
[2017-12-29] MEDS ORDERED: Senokot 8.6 MG TAB PO PRN (21:01)
[2017-12-29] MEDS ORDERED: Calcium Carbonate 500 MG ChewTAB PO PRN (21:01)
[2017-12-29] MEDS ORDERED: Insulin Regular 300 UNITS/3 ML VIAL SC PRN ×2 (21:06)
[2017-12-29] MEDS ORDERED: Dextrose 5% in Water 1,000 ML IV PRN (21:06)
[2017-12-29] MEDS ORDERED: Dextrose 50% Abboject 50 ML SYRINGE SLOW IVP PRN (21:06)
--- NOTE | 2017-12-29 21:12 | HP ---
DATE OF ADMISSION: 12/29/2017 PRIMARY CARE PHYSICIAN: Dr. Tavarez PRIMARY GLASS SETTER: Dr. Lopez. PRIMARY BEAM WORKER: Dr. Alexis. CHIEF COMPLAINT: Generalized weakness with difficulty sleeping. HISTORY OF PRESENT ILLNESS: The patient is an 82-year-old -[place] female with chronic diast olic heart failure, obstructive sleep apnea on CPAP, chronic respiratory failure, on home oxygen and obesity who was brought in to the emergency room with worsening shortness of breath along with genera lized weakness. The shortness of breath was mainly present when she lies down. She denies any leg s welling. She thinks that abdomen appears to be full. She is compliant with all of her medications a s well as fluid restriction. She has home healthcare and monitors her weight. She has gained around 3-4 pounds recently. She denies any chest pain, palpitations, lightheadedness, dizziness, or syncop e. No recent immobilization or travel reported. She also complains of some shortness of breath on m ild to moderate exertion. In the emergency room, a chest x-ray showed pulmonary vascular congestion. EKG showed paced rhythm. Initial vital signs showed temperature 97.7, respirations 22, pulse rate of 62, blood pressure 126/6 5 with O2 saturation of 93% on 2 liters nasal cannula. She received Lasix and aspirin in the emergen cy room. PAST MEDICAL HISTORY: 1. Chronic diastolic heart failure, ejection fraction 65%. 2. Diabetes mellitus type 2. 3. Obstructive sleep apnea on CPAP. 4. Chronic respiratory failure on home oxygen, especially at night. 5. Obesity with BMI of 38. 6. Hypertension. 7. Sick sinus syndrome, status post pacemaker. 8. Chronic kidney disease stage 3. 9. History of esophageal stricture requiring dilatation. 10. Hypothyroidism. 11. Anxiety and depression. PAST SURGICAL HISTORY: 1. Pacemaker placement. 2. EGD. 3. Colonoscopy. 4. Cholecystectomy. 5. Appendectomy. ALLERGIES: CIMETIDINE. CURRENT HOME MEDICATIONS: Family to bring accurate list of medications. She does not take aspirin. She takes Lasix 40 mg on a daily basis. FAMILY HISTORY: She denies any heart disease in her family. Mother of complications from pneum onia. SOCIAL HISTORY: She currently lives at home. She has good family support. Two daughters makes deci gisselle for her. She has home healthcare. CODE STATUS: She is FULL CODE. REVIEW OF SYSTEMS: The following complete review of systems was negative, unless otherwise mentioned in the HPI or below: Constitutional: Weight loss or gain, ability to conduct usual activities. Skin: Rash, itching. Eyes: Double vision, pain. ENT/Mouth: Nose bleeding, neck stiffness, pain, tenderness. Cardiovascular: Palpitations, dyspnea on exertion, orthopnea. Respiratory: Shortness of breath, wheezing, cough, hemoptysis, fever or night sweats. Gastrointestinal: Poor appetite, abdominal pain, heartburn, nausea, vomiting, constipation, or diarr hea. Genitourinary: Urgency, frequency, dysuria, nocturia. Musculoskeletal: Pain, swelling. Neurologic/Psychiatric: Anxiety, depression. Allergy/Immunologic: Skin rash, bleeding tendency. PHYSICAL EXAMINATION: VITAL SIGNS: As discussed above. GENERAL: An 82-year-old female in mild respiratory distress. HEENT: Head is atraumatic, normocephalic, Sclerae are anicteric. Moist mucous membrane, no oral les ion. NECK: Supple. No carotid bruit. JVD cannot be appreciated due to body habitus. LUNGS: Showed diffuse rales bilaterally with scattered rhonchi. No significant wheezing noted. Mil d accessory muscle use noted. HEART: S1 and S2 present. Regular rate and rhythm, 2/6 systolic murmur over the mitral area. Pacem juan miguel noted. ABDOMEN: Distended, bowel sounds present. Questionable shifting dullness, no rebound or guarding. EXTREMITIES: No edema or calf tenderness. NEUROLOGIC: Grossly nonfocal, moves all four extremities. PSYCHIATRY: Alert, awake and oriented x3. SKIN: Warm and dry. LYMPH NODES: No palpable lymph nodes in the neck. PERIPHERAL VASCULAR: Radial pulses palpable bilaterally. MUSCULOSKELETAL: No joint swelling or tenderness. IMAGING DATA AND LABORATORY DATA: 1. EKG by my review as discussed above. 2. Chest x-ray by my review showed pulmonary vascular congestion. 3. BNP was 153. 4. Troponins were negative. 5. Creatinine 1.46 with BUN 19, sodium 137, potassium 3.8. 6. CBC showed WBC 10.5 with hemoglobin 9.8 and hematocrit 31.2. 7. ABG showed pH of 7.41 with pCO2 of 51, pO2 of 69.9 on 28% FiO2. Urinalysis was negative for WBC, bacteria. IMPRESSION: 1. Acute hypoxic and hypercapnic respiratory failure secondary to acute on chronic diastolic heart f ailure exacerbation. 2. Chronic respiratory failure on home oxygen, especially at night. 3. Obstructive sleep apnea on continuous positive airway pressure. 4. Hypertension. 5. Obesity with body mass index of 38.5. 6. Diabetes mellitus type 2. 7. Anxiety and depression. 8. Sick sinus syndrome, status post pacemaker. 9. Hyperlipidemia. 10. Hypothyroidism. 11. Chronic kidney disease stage 3. PLAN: The patient will be monitored on the telemetry unit. Patient will be kept on fluid restrictio n. We will continue IV diuretics. We will consult Cardiology, Dr. Lopez in a.m. for medication optim ization. We will continue CPAP at bedtime. We will resume her home medications once confirmed. Con ross cardiac rehabilitation. Plan of care was discussed with the patient and the family at the bedside. They stated understanding . The patient will require 2-3 days for stabilization. We will resume home health care at discharge.
[2017-12-29] MEDS: Melatonin 3 MG TAB PO PRN (22:10)
[2017-12-30 06:03] LABS: Anion Gap 14 mmol/L (10-20); BUN (Urea Nitrogen) 19 mg/dL (9.8-20.1); Calc. Creatinine Clearance 48 mL/min (70-130); Calcium 9.3 mg/dL (7.8-10.44); Carbon Dioxide 29 mmol/L (23-31); Chloride 100 mmol/L (98-107); Estimated GFR-MDRD 51; Glucose 122 mg/dL (83-110); Potassium 3.2 mmol/L (3.5-5.1); Sodium 140 mmol/L (136-145)
[2017-12-30] MEDS: Furosemide 40 MG/4 ML VIAL SLOW IVP SCH ×2 (06:21→15:00)
[2017-12-30] MEDS: Levothyroxine Sodium 75 MCG TAB PO SCH (06:21)
[2017-12-30] MEDS: Aspirin 81 mg Enteric Coated Tablet PO SCH (08:45)
[2017-12-30] MEDS: risperiDONE 1 MG TAB PO SCH ×2 (08:45→21:25)
[2017-12-30] MEDS: Metoprolol Tartrate 50 MG TAB PO SCH ×2 (08:46→21:25)
[2017-12-30] MEDS: Amlodipine 5 MG TAB PO SCH (08:46)
[2017-12-30] MEDS: Enoxaparin Sodium 30 MG/0.3 ML SYRINGE SC SCH (08:46)
[2017-12-30] MEDS ORDERED: Potassium Chloride 20 MEQ TAB PO SCH (09:00)
[2017-12-30] MEDS ORDERED: Docusate 100 MG CAP PO SCH (09:00)
[2017-12-30] MEDS ORDERED: Magnesium Sulfate 2 GM in Sodium Chloride 0.9% 100 ML IVPB SCH (10:45)
[2017-12-30] MEDS: Potassium Chloride 20 MEQ TAB PO SCH ×2 (11:24→18:24)
--- NOTE | 2017-12-30 14:01 | CON ---
DATE OF CONSULTATION: 12/30/2017 ROOM: [facility] PRIMARY CARE PHYSICIAN: Dr. Brian Tavarez PRIMARY LICENSED INSURANCE SALES AGENT: Dr. Mely Lopez PRIMARY RN FIELD: Dr. Hermilo Alexis REASON FOR CARDIOLOGY CONSULTATION: Heart failure, congestive heart failure and exacerbation. HISTORY OF PRESENT ILLNESS: Ms. Velasco is a very pleasant 82-year-old female with a significant history of pacemaker placement secondary to sick sinus syndrome, obstructive sleep apnea with a CPAP at night and chronic hypoxic respiratory failure with home O2, 2 liters nasal cannula and diabetes. The patient presented to emergency department due to worsening weakness and uncontrolled cough with pain in the throat. She has a home health at least 3 times a week and also she has some m onitor system at home which her daily weight and daily vital signs transfer to the patient's primary care doctors to continue to monitor. She is also able to sleep well for more than 2 months. The [facility]'s primary care doctor prescribed some sleeping medication, although she sleeps better; however, her weakness is getting worse per patient report. She has a history of chronic hypoxic respiratory f ailure, which is managed by Dr. Alexis and she uses home O2, 2 liters nasal cannula almost every day . She was in the hospital in 11/2017 due to presyncopal episode secondary to severe generalized weak ness. The patient's pacemaker was interrogated at that time which shows a normal function. During the Cardiology consult assessment, the patient denied any chest pain, discomfort, palpitation or fluttering in her chest, numbness or tingling to the left upper extremity or nausea, vomiting or a ny other cardiac complaints. She reports that her breathing is much better since this admission. The patient underwent pacemaker placement in October 2004. Last pacemaker interrogation shows a normal function. Current echocardiogram was done in 11/2017 which showed EF 60-65%, grade I diastolic dysfu nction, moderate left ventricular hypertrophy, mildly dilated bilateral atrium, mild mitral valve reg urgitation and mild tricuspid regurgitation. Carotid Doppler was done in 2014 shows no significant s tenosis. The patient had a carotid Doppler study in 10/2016 which shows no significant stenosis. PAST MEDICAL HISTORY: 1. Chronic diastolic heart failure. 2. Hypertension. 3. Sick sinus syndrome. 4. Hyperlipidemia. 5. Diabetes type 2. 6. Gastroesophageal reflux disease. 7. Anemia. 8. Chronic kidney disease. 9. History of esophageal stricture required dilation. 10. Hypothyroidism. 11. Anxiety and depression. PAST SURGICAL HISTORY: 1. Dual chamber pacemaker in 2004. 2. EGD. 3. Colonoscopy. 4. Cholecystectomy. 5. Appendectomy. ALLERGIES: She has allergy to TAGAMET, CIMETIDINE. CURRENT HOME MEDICATIONS: Risperidone 2 mg twice a day, simvastatin 10 mg once a day, levothyroxine 75 mcg once a day, metoprolol 100 mg twice a day, iron 27 mg once a day, ____ 7.5 mg once a day, furo semide 40 mg once a day, DuoNeb 3 mL every 6 hours as needed, albuterol sulfate 1 puff every 4 hours as needed, amlodipine 5 mg once a day, insulin glargine 5 me unit subacute once a day, isosorbide mon onitrate 30 mg once a day. FAMILY HISTORY: No significant family history of heart disease in her family. Patient's mother dece ased due to complication from pneumonia. SOCIAL HISTORY: She is . She is living at home. She has very good family support. The pat davidant's daughters live close. There are alive and living well. She denies tobacco, ETOH or illicit d rug abuse. She enjoys a couple of sodas a day. REVIEW OF SYSTEMS: Twelve point review of systems are reviewed, are negative, unless otherwise menti oned in the HPI. PHYSICAL EXAMINATION: VITAL SIGNS: Blood pressure 130/63, pulse is 80 and intermediate A paced, heart rate 60-80, O2 sat 9 5% on 2 liters nasal cannula, temperature 97.5, respiratory rate 18-20. GENERAL: The patient is a well-developed, well-nourished. She is overweight, mildly in respiratory distress, especially after the exercise. HEAD: Atraumatic, normocephalic. EYES: Extraocular muscle movement intact. ENT: No mouth and oral mucosa are moist without lesion. NECK: Supple. No JVP. LUNGS: Really diminished at the bases with rhonchi bilaterally. No significant wheezing noted. CARDIAC: Regular rate and rhythm, normal S1, S2. There are no S3, S4, no significant murmurs or hiv es or thrill noted. Carotid pulse present without bruit. There are 2+ pulses in bilateral lower ext remities. No edema noted. ABDOMEN: Soft and no mass or discomfort by palpitation. Stomach distended, but soft to palpate. Tip wel sounds are present. EXTREMITIES: The patient able to move all extremities. NEUROLOGIC: Alert, oriented x4, nonfocal. SKIN: Warm and dry, no bruise or lesion noted. LABORATORY DATA: WBC 10.5, hemoglobin 9.8, hematocrit 31.2, platelet of 320. Sodium 140, potassium 3.2. BUN 19 creatinine 1.23, BNP 153. Glucose 122, magnesium 1.5. The patient's chest x-ray revealed evidence of a decompensated congestive heart failure with pulmonar y edema and bilateral pleural effusion. ASSESSMENT AND PLAN: 1. Acute on chronic diastolic heart failure, although the patient's BNP showing at 150s, the patient 's chest x-ray reviewed, pulmonary edema and fluid in the bilateral lungs. At this moment she is on Lasix 40 mg IV push twice a day with a potassium supplement and metoprolol 50 mg twice a day. No OMER inhibitor or ARB due to the history of chronic kidney disease. The patient's condition is stable at this moment, we would like to continue the current medication and adjust as appropriate. 2. Acute on chronic hypoxic respiratory failure. The patient's respiratory status is stable with 2 liters nasal cannula which she is on at home. She is on breathing treatment which is managed by [facility] doctor. 3. Hypertension. The patient's blood pressure is stable with metoprolol 50 mg twice a day, amlodipi ne 5 mg once a day and Imdur 30 mg once a day. We would like to continue to monitor. 4. Pacemaker placement. Most recent interrogation shows normal function. We would like to continue to monitor on telemetry. 5. Chronic kidney disease. The patient's creatinine level is improving at this moment, we would lik e to continue to monitor. 6. Type 2 diabetes which is managed by the patient's primary care doctor. She is on a.c. and at bed time blood sugar check with sliding scale insulin. 7. Obstructive sleep apnea. She is on the CPAP at home at night. 8. Chronic anemia. The patient's hemoglobin is baseline at this moment. 9. Hypokalemia and hypomagnesemia. The patient is covered by magnesium and potassium supplement. T he patient's BMP will be checked tomorrow. Thank you for allowing the Cardiology Service to participate in the care of this patient. We will fo joannaw along with the patient care team and make recommendations as appropriate.
--- NOTE | 2017-12-30 20:51 | PDOC.PN ---
- Subjective Encounter Start Date: 12/30/17 Encounter Start Time: 08:00 Patient seen and examined for CHF flare. SOB improving. Slept well. No new complaints. No overnight events - Objective Resuscitation Status: Resuscitation Status FULL:Full Resuscitation MAR Reviewed: Yes Vital Signs & Weight: Vital Signs (12 hours) Temp Pulse Pulse Pulse Resp BP BP 12/30/17 18:01 61 18 12/30/17 16:00 18 12/30/17 14:11 71 16 12/30/17 12:00 97.8 F 66 20 12/30/17 11:39 68 69 114/59 L 142/71 H 12/30/17 10:32 80 20 12/30/17 08:51 97.5 F L BP Pulse Ox Pulse Ox Pulse Ox 12/30/17 18:01 98 12/30/17 16:00 12/30/17 14:11 97 12/30/17 12:00 116/58 L 95 12/30/17 11:39 96 93 L 12/30/17 10:32 95 12/30/17 08:51 Weight Weight 191 lb 2.252 oz I&O: 12/29/17 12/30/17 12/31/17 06:59 06:59 06:59 Intake Total 480 240 Output Total 500 Balance -20 240 Result Diagrams: 12/29/17 16:05 12/30/17 04:46 Additional Labs: Accuchecks 12/30/17 12/30/17 16:34 10:46 POC Glucose 186 H 201 H EKG Reviewed by me: Yes (Tele SR) Phys Exam - Physical Examination Constitutional: NAD Respiratory: no wheezing, no rales, no rhonchi Symmetrical Cardiovascular: RRR, no rub No heaves/pulsations Gastrointestinal: soft, non-tender, no distention, positive bowel sounds Musculoskeletal: no edema Neurological: non-focal, normal sensation, moves all 4 limbs Psychiatric: normal affect, A&O x 3 Dx/Plan - Plan DVT proph w/lovenox, DVT proph w/SCDs IMPRESSION: 1. Acute hypoxic and hypercapnic respiratory failure secondary to acute on chronic diastolic heart failure exacerbation. 2. Chronic respiratory failure on home oxygen, especially at night. 3. Obstructive sleep apnea on continuous positive airway pressure. 4. Hypertension. 5. Hypokalemia/Hypomagnesemia 6. Diabetes mellitus type 2. 7. Anxiety and depression. 8. Sick sinus syndrome, status post pacemaker. 9. Hyperlipidemia. 10. Hypothyroidism. 11. Chronic kidney disease stage 3. 12. Obesity with body mass index of 38.5. PLAN: Cont Diuresis Replace Mg and Phosphorus Cont CPAP No ACEI or ARB due to renal insuff. AM labs Cont other meds as below Laboratory Tests 12/30/17 12/30/17 04:46 04:46 Potassium 3.2 L Magnesium 1.5 L Review of Systems - Review of Systems Respiratory: SOB with Excertion. negative: Cough, Dry, Shortness of Breath, Hemoptysis, Pleuritic Pain, Sputum, Wheezing Cardiovascular: negative: chest pain, palpitations, orthopnea, paroxysmal nocturnal dyspnea, edema, light headedness, other - Medications/Allergies Allergies/Adverse Reactions: Allergies Allergy/AdvReac Type Severity Reaction Status Date / Time cimetidine [From Tagamet] Allergy Verified 07/11/17 19:41 cimetidine HCl [From GeaComamet] Allergy Verified 07/11/17 19:41 Medications: Current Medications Acetaminophen (Tylenol) 650 mg PO Q4H PRN PRN Reason: Headache/Fever or Pain Albuterol/Ipratropium (Duoneb) 3 ml NEB [id number] [facility] Last Admin: 12/30/17 18:01 Dose: 3 ml Albuterol/Ipratropium (Duoneb) 3 ml NEB Q2H PRN PRN Reason: SOB &/or Wheezing Amlodipine Besylate (Norvasc) 5 mg PO DAILY [facility] Last Admin: 12/30/17 08:46 Dose: 5 mg Aspirin (Ecotrin) 81 mg PO DAILY [facility] Last Admin: 12/30/17 08:45 Dose: 81 mg Calcium Carbonate (Tums) 1,000 mg PO Q4H PRN PRN Reason: Heartburn or Indigestion Dextrose/Water (Dextrose 50%) 25 gm SLOW IVP PRN PRN PRN Reason: Hypoglycemia Docusate Sodium (Colace) 100 mg PO BID [facility] Last Admin: 12/30/17 08:45 Dose: 100 mg Enoxaparin Sodium (Lovenox) 30 mg SC 0900 [facility] Last Admin: 12/30/17 08:46 Dose: 30 mg Furosemide (Lasix) 40 mg SLOW IVP 0600,1400 [facility] Last Admin: 12/30/17 15:00 Dose: 40 mg Glucagon (Glucagon) 1 mg IM PRN PRN PRN Reason: Hypoglycemia Dextrose/Water (D5w) 1,000 mls @ 0 mls/hr IV .Q0M PRN; As Directed PRN Reason: Hypoglycemia Insulin Human Regular (Humulin R) 0 units SC .MILD SLIDING SCALE PRN PRN Reason: Mild Correctional Scale Insulin Human Regular (Humulin R) 0 units SC .BEDTIME SLIDING SC PRN PRN Reason: Bedtime Correctional Scale Last Admin: 12/29/17 22:13 Dose: 3 unit Isosorbide Mononitrate (Imdur Er) 30 mg PO DAILY [facility] Last Admin: 12/30/17 08:45 Dose: 30 mg Levothyroxine Sodium (Synthroid) 75 mcg PO 0600 [facility] Last Admin: 12/30/17 06:21 Dose: 75 mcg Magnesium Hydroxide (Milk Of Magnesium) 30 ml PO DAILYPRN PRN PRN Reason: Constipation Last Admin: 12/30/17 11:25 Dose: 30 ml Melatonin (Melatonin) 3 mg PO HSPRN PRN PRN Reason: Insomnia Last Admin: 12/29/17 22:10 Dose: 3 mg Metoprolol Tartrate (Lopressor) 50 mg PO BID [facility] Last Admin: 12/30/17 08:46 Dose: 50 mg Nitroglycerin (Nitrostat) 0.4 mg PO Q5MIN PRN PRN Reason: Chest Pain Nitroglycerin (Nitro-Bid 2% Ointment) 0.5 inch TOP Q8H PRN PRN Reason: SBP GREATER THAN 160 Ondansetron HCl (Zofran Odt) 4 mg PO Q6H PRN PRN Reason: Nausea/Vomiting Ondansetron HCl (Zofran) 4 mg IVP Q6H PRN PRN Reason: Nausea/Vomiting Potassium Chloride (K-Dur) 20 meq PO TID-[facility] Stop: 12/31/17 08:01 Last Admin: 12/30/17 18:24 Dose: 20 meq Risperidone (Risperidone) 2 mg PO BID [facility] Last Admin: 12/30/17 08:45 Dose: 2 mg Senna (Senokot) 2 tab PO HSPRN PRN PRN Reason: Constipation Simvastatin (Zocor) 10 mg PO [facility]
[2017-12-30] MEDS: Senokot S 8.6-50 MG TAB PO SCH (21:25)
[2017-12-30] MEDS: Simvastatin 5 MG TAB PO SCH (21:25)
[2017-12-30] MEDS: Melatonin 3 MG TAB PO PRN (21:32)
[2017-12-31 05:12] LABS: #Basophils 0.1 thou/uL (0.0-0.2); #Eosinphils 0.4 thou/uL (0.0-0.7); #Lymphocytes 1.6 thou/uL (1.20-3.40); #Monocytes 1.1 thou/uL (0.11-0.59); #Neutrophils 7.1 thou/uL (1.40-6.50); %Basophils 0.6 % (0.0-1.0); %Eosinophils 3.5 % (0.0-10.0); %Lymphocytes 16.1 % (21.0-51.0); %Monocytes 10.5 % (0.0-10.0); %Neutrophils 69.4 % (42.0-75.0); Hemoglobin 9.5 g/dL (12.0-16.0); Mean Corpuscular HGB CONC 30.9 g/dL (32.0-36.0); Mean Corpuscular Volume 87.3 fL (78.0-98.0); Mean Platelet Volume 7.5 fL (7.4-10.4); Platelet Count 297 thou/uL (130-400); RBC Distribution Width 12.1 % (11.5-14.5); Red Blood Cell (RBC) Count 3.52 mill/uL (4.20-5.40); White Blood Cell (WBC) Count 10.2 thou/uL (4.8-10.8)
[2017-12-31] MEDS: Furosemide 40 MG/4 ML VIAL SLOW IVP SCH ×2 (05:28→16:00)
[2017-12-31] MEDS: Levothyroxine Sodium 75 MCG TAB PO SCH (05:28)
[2017-12-31 05:40] LABS: Anion Gap 14 mmol/L (10-20); BUN (Urea Nitrogen) 18 mg/dL (9.8-20.1); Calc. Creatinine Clearance 52 mL/min (70-130); Calcium 9.6 mg/dL (7.8-10.44); Carbon Dioxide 29 mmol/L (23-31); Chloride 99 mmol/L (98-107); Estimated GFR-MDRD 55; Glucose 149 mg/dL (83-110); Magnesium 2.1 mg/dL (1.6-2.6); Potassium 3.6 mmol/L (3.5-5.1); Sodium 138 mmol/L (136-145)
--- NOTE | 2017-12-31 09:23 | PDOC.CTH ---
<Juliane Coles - Last Filed: 12/31/17 09:19> Cardiology Progress Note - Subjective The pt seen and examined. No overnight events. No cardiac complaints. She stated she feels better today. - Objective Vital Signs Temp Pulse Resp BP Pulse Ox 12/31/17 06:15 74 20 95 12/31/17 05:24 98.2 F 72 18 163/74 H 92 L 12/30/17 22:30 69 92 H Weight 198 lb 6.4 oz 12/30/17 12/31/17 01/01/18 06:59 06:59 06:59 Intake Total 480 640 Output Total 500 400 425 Balance -20 240 -425 - Physical Examination General/Neuro: alert & oriented x3 Neck: no JVD present Lungs: other: (diminished at bases) Heart: RRR Abdomen: soft Extremities: other: (No edema) - Telemetry Telemetry Rhythm: SR 80s - Labs Result Diagrams: 12/31/17 04:37 12/31/17 04:37 Troponin/CKMB CK-MB (CK-2) 0.4 ng/mL (0-6.6) 12/29/17 16:05 Troponin I Less than 0.010 ng/mL (< 0.028) 12/29/17 19:06 - Assessment/Plan 1. Acute on chronic diastolic HF - improving with Lasix 40mg IV BID and bblocker. 2. Acute on Chronic respiratory failure on home oxygen - stable with 2.5L/NC 3. HTN - stable; cont. to monitor 4. CKD stage 3 - improving; 5. Hx of PM placement - cont. to monitor on tele 6. Dm type 2 - managed by PCP 7. Obstructive sleep apnea on Cpap at HS - stable 8. Hypokalemia/Hypomagnesemia 9. Hyperlipidemia - On statin 10. Hypothyroidism - managed by PCP 11. Anxiety/Depression - stable 12. Obesity with body mass index of 38.5. MAR reviewed Review of Systems - Review of Systems Constitutional: reports: no symptoms reported EENTM: reports: no symptoms reported Respiratory: reports: see HPI Cardiac (ROS): reports: no symptoms reported ABD/GI: reports: no symptoms reported : reports: no symptoms reported <Ira Lopez - Last Filed: 12/31/17 11:26> Cardiology Progress Note - Objective Vital Signs Temp Pulse Resp BP Pulse Ox 12/31/17 10:27 62 18 96 12/31/17 09:00 97.8 F 72 20 134/57 L 95 12/31/17 06:15 74 20 95 12/31/17 05:24 98.2 F 72 18 163/74 H 92 L Weight 198 lb 6.4 oz 12/30/17 12/31/17 01/01/18 06:59 06:59 06:59 Intake Total 480 640 Output Total 929 727 1648 Balance -20 240 -1025 - Labs Result Diagrams: 12/31/17 04:37 12/31/17 04:37 Troponin/CKMB CK-MB (CK-2) 0.4 ng/mL (0-6.6) 12/29/17 16:05 Troponin I Less than 0.010 ng/mL (< 0.028) 12/29/17 19:06 - Assessment/Plan pt. seen and eval. by me. I agree with the A/P by the CERAMIC TILE INSTALLER. Chest clear. RRR. Multiple medical problems. She will need to follow fluid restrictions when she is discharged.
[2017-12-31] MEDS: traMADol HCl 50 MG TAB PO PRN (10:14)
[2017-12-31] MEDS: Senokot S 8.6-50 MG TAB PO SCH ×2 (10:15→20:38)
[2017-12-31] MEDS: risperiDONE 1 MG TAB PO SCH ×2 (10:15→20:38)
[2017-12-31] MEDS: Metoprolol Tartrate 50 MG TAB PO SCH ×2 (10:16→20:38)
[2017-12-31] MEDS: Aspirin 81 mg Enteric Coated Tablet PO SCH (10:16)
[2017-12-31] MEDS: Potassium Chloride 20 MEQ TAB PO SCH (10:16)
[2017-12-31] MEDS: Amlodipine 5 MG TAB PO SCH (10:16)
[2017-12-31] MEDS: Polyethylene Glycol 3350 17 GM Packet PO SCH (10:16)
[2017-12-31] MEDS: Enoxaparin Sodium 30 MG/0.3 ML SYRINGE SC SCH (10:17)
--- NOTE | 2017-12-31 11:46 | ADD-CON ---
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 Due to increas ing coughing, she presented to the hospital and was found to have some hypoxemia and also was found t o have what appears to be congestive heart failure on chest x-ray. She does have a history of diasto lic dysfunction. She has had a normal ejection fraction in the past and she does have evidence of le ft ventricular hypertrophy due to longstanding hypertension and history of diastolic dysfunction. Pl ease refer to the notes already dictated by the nurse practitioner for the full report on this lady joselyn ar as her past medical history, social history, family history, review of systems, medications, and a llergies. When I am seeing the patient today, she is saying that she is feeling much better. She delarosa s been noted in no distress at this time whatsoever. She does have multiple medical problems. She h as other than the heart failure and sick sinus syndrome. She had a pacemaker insertion. She has had a history of anemia, which is chronic. She has chronic kidney disease as well as hypothyroidism, an xiety, and depression. PHYSICAL EXAMINATION: VITAL SIGNS: Her blood pressure is 130/60, heart rates in the 80s and shows pacing. She is afebrile . She has 2 liters of oxygen at this time, also respiratory rate is about 18-20. HEENT: Shows head to be normocephalic, atraumatic. NECK: Carotid pulses are present. GENERAL: A well-developed, well-nourished female, somewhat obese, in no acute distress at this time. CHEST: Clear. I did not hear any significant rales, rhonchi, or wheezing. She does have decreased breath sounds throughout due to decrease inspiratory effort. CARDIOVASCULAR: Reveals a regular rhythm. She appears to be pacing. There were no gross murmurs no nakul. There were no heaves or thrills. ABDOMEN: Shows obesity with positive bowel sounds. No organomegaly or masses are noted. No tendern ess noted. EXTREMITIES: Showed no clubbing, cyanosis, or edema. Pedal pulses are present. NEUROLOGIC: The patient appears to be fully intact. IMPRESSION: 1. Congestive heart failure exacerbation, which is diastolic in nature and probably volume fluid ove rload. She has been watching her volume intake at home. She has been watching her salt and sodium, but she has not been paying attention to her volume. She need to actually restrict her fluid somewha t and hopefully this will resolve the problem. I suspect she will be able to be discharged from the hospital in 1-2 days as long as she is able to continue on her medications at home. We will need to continue with the diuretic, but would not want to increase the diuretics to diurese her too much with a history of diastolic dysfunction. Her systolic function has remained stable. She has also had pa cemaker insertion which also on a recent evaluation has remained stable. 2. History of respiratory failure. She remains on a CPAP mask at home. She has had recent mask manuel nge, only using the nasal part, before she had the mask to fit over the entire area. I do not know w page she is a mouth breather and this may play some role and she may need to have her mask either c hange or just to have better effect of the mask. 3. History of hypertension. Blood pressure is under reasonable control. We will continue her with the same medications that she is on at this time. 4. Status post pacemaker insertion. This pacemaker has remained stable. The last evaluation of the pacemaker shows it was functioning normally. 5. History of chronic kidney disease. This will be followed by the bank note designer. 6. History of type 2 diabetes. She is on sliding scale insulin and will continue to follow this wit h you, but mostly controlled by the primary care physicians. She also has obstructive sleep apnea, w ould continue her CPAP mask. Otherwise, from a cardiac standpoint, she appears to be doing much bett er and would suggest volume control in this lady or fluid restriction. We more than happy to continu e to follow her throughout this hospital course.
--- NOTE | 2017-12-31 12:32 | PRG ---
DATE OF SERVICE: 12/31/2017 SUBJECTIVE: The patient is seen and examined at the bedside. She complains about her left foot pain , which just started this morning. When she is asked a question what she takes for arthritic pain at home, she says just nonsteroidal anti-inflammatory agents. OBJECTIVE: VITAL SIGNS: Blood pressure is 134/57, temperature is 97.8, pulse is 72, respiratory rate is 20, O2 saturation is 95% on 2-1/2 liters by nasal cannula. HEENT: Head is atraumatic, normocephalic. Eyes are PERRLA. Sclerae is nonicteric. Oral mucosa is moist. NECK: A 1-2+ JVD, similar bilaterally. LUNGS: Breath sounds diminished at both bases with few crackles bilaterally. HEART: S1 and S2, somewhat distant. No S3, no S4. ABDOMEN: Soft, obese, nontender. EXTREMITIES: No clubbing, cyanosis, or edema. NEUROLOGICAL EXAMINATION: She is alert and oriented x4. There are not any focal deficits. SKIN: No rash or erythema. LABORATORY DATA: Labs showed white count of 10.2, hemoglobin 9.5, hematocrit 30.8, platelet count is 297,000. Chemistry: Normal electrolytes. Creatinine 1.15, BUN of 18. Glycemia is ranging from 149-201. MICROBIOLOGY: None. IMPRESSION: 1. Acute hypoxic and hypercapnic respiratory failure, secondary to acute on chronic diastolic heart failure exacerbation. 2. Chronic respiratory failure, on home oxygen. 3. Obstructive sleep apnea. 4. Hypertension. 5. Hypokalemia/hypomagnesemia. 6. Diabetes mellitus, type 2. 7. Pacemaker. 8. Hyperlipidemia. 9. Hypothyroidism. 10. Chronic kidney disease, stage 3. 11. Anxiety and depression. PLAN: To continue diuresis. Continue electrolyte replacement. Patient will need supplementation. Continue CPAP at night. Get PT and OT. Use tramadol 100 mg q.4 hours p.r.n. as needed. Start 10 un its of long-acting insulin, Lantus.
[2017-12-31] MEDS: Simvastatin 5 MG TAB PO SCH (20:38)
[2017-12-31] MEDS ORDERED: Insulin Glargine 10 UNITS in Pre-Filled Syringe 1 EACH SC SCH (21:00)
[2018-01-01 05:32] LABS: Anion Gap 13 mmol/L (10-20); BUN (Urea Nitrogen) 18 mg/dL (9.8-20.1); Calc. Creatinine Clearance 57 mL/min (70-130); Carbon Dioxide 33 mmol/L (23-31); Chloride 96 mmol/L (98-107); Estimated GFR-MDRD 58; Glucose 124 mg/dL (83-110); Magnesium 1.9 mg/dL (1.6-2.6); Potassium 3.5 mmol/L (3.5-5.1); Sodium 138 mmol/L (136-145)
[2018-01-01] MEDS: traMADol HCl 50 MG TAB PO PRN (06:07)
[2018-01-01] MEDS: Furosemide 40 MG/4 ML VIAL SLOW IVP SCH ×2 (06:07→14:25)
[2018-01-01] MEDS: Levothyroxine Sodium 75 MCG TAB PO SCH (06:07)
[2018-01-01] MEDS: Aspirin 81 mg Enteric Coated Tablet PO SCH (08:47)
[2018-01-01] MEDS: Amlodipine 5 MG TAB PO SCH (08:47)
[2018-01-01] MEDS: Potassium Chloride 20 MEQ TAB PO SCH (08:47)
[2018-01-01] MEDS: Metoprolol Tartrate 50 MG TAB PO SCH (08:48)
[2018-01-01] MEDS: Enoxaparin Sodium 30 MG/0.3 ML SYRINGE SC SCH (08:48)
[2018-01-01] MEDS: risperiDONE 1 MG TAB PO SCH (08:48)
[2018-01-01] MEDS: Senokot S 8.6-50 MG TAB PO SCH (08:49)
[2018-01-01] MEDS: Polyethylene Glycol 3350 17 GM Packet PO SCH (08:49)
[2018-01-01 11:28] VITALS: TEMP 97.6
--- NOTE | 2018-01-01 17:18 | PDOC.CTH ---
<Juliane Coles - Last Filed: 01/01/18 17:16> Cardiology Progress Note - Subjective The pt seen and examined. NO overnight events. No cardiac complaints. She cont. having SOB with mild movement and speech which are normal for her, per the pt's report. - Objective Vital Signs Temp Pulse Pulse Pulse Resp BP BP 01/01/18 14:10 60 01/01/18 11:27 97.6 F 74 16 01/01/18 11:19 77 60 148/71 H 01/01/18 10:52 60 16 01/01/18 08:48 97.5 F L 60 16 01/01/18 08:47 60 132/60 01/01/18 08:00 97.5 F L 60 16 01/01/18 07:44 68 16 01/01/18 06:02 96.8 F L 65 18 BP BP BP Pulse Ox Pulse Ox Pulse Ox 01/01/18 14:10 01/01/18 11:27 132/60 92 L 01/01/18 11:19 132/60 94 L 92 L 01/01/18 10:52 98 01/01/18 08:48 100 01/01/18 08:47 01/01/18 08:00 132/60 100 01/01/18 07:44 98 01/01/18 06:02 160/69 H 94 L Weight 197 lb 12.8 oz 12/31/17 01/01/18 01/02/18 06:59 06:59 06:59 Intake Total 640 100 Output Total 400 1625 Balance 240 -1525 - Physical Examination General/Neuro: alert & oriented x3 Neck: no JVD present (diminished at bases) Lungs: other: Heart: RRR Abdomen: soft Extremities: other: (No edema) - Telemetry Telemetry Rhythm: SR 60s - Labs Result Diagrams: 12/31/17 04:37 01/01/18 04:39 Troponin/CKMB CK-MB (CK-2) 0.4 ng/mL (0-6.6) 12/29/17 16:05 Troponin I Less than 0.010 ng/mL (< 0.028) 12/29/17 19:06 - Assessment/Plan 1. Acute on chronic diastolic HF - improving with Lasix 40mg IV BID and bblocker. Holding OMER/ARB for hx of CKD. Change Lasix from IV to PO form. 2. Acute on Chronic respiratory failure on home oxygen - stable with 2.5L/NC 3. HTN - stable; cont. to monitor 4. CKD stage 3 - improving; 5. Hx of PM placement - cont. to monitor on tele 6. Dm type 2 - managed by PCP 7. Obstructive sleep apnea on Cpap at HS - stable 8. Hypokalemia/Hypomagnesemia 9. Hyperlipidemia - On statin 10. Hypothyroidism - managed by PCP 11. Anxiety/Depression - stable 12. Obesity with body mass index of 38.5. MAR reviewed * She will need to follow fluid restrictions when she is discharged. Review of Systems - Review of Systems Constitutional: reports: no symptoms reported EENTM: reports: no symptoms reported Respiratory: reports: see HPI Cardiac (ROS): reports: no symptoms reported ABD/GI: reports: no symptoms reported : reports: no symptoms reported Musculoskeletal: reports: no symptoms reported <Ira Lopez - Last Filed: 01/01/18 17:58> Cardiology Progress Note - Objective Vital Signs Temp Pulse Pulse Pulse Resp BP BP 01/01/18 16:00 58 L 16 01/01/18 14:10 60 01/01/18 11:27 97.6 F 74 16 01/01/18 11:19 77 60 148/71 H 01/01/18 10:52 60 16 01/01/18 08:48 97.5 F L 60 16 01/01/18 08:47 60 132/60 01/01/18 08:00 97.5 F L 60 16 01/01/18 07:44 68 16 01/01/18 06:02 96.8 F L 65 18 BP BP BP Pulse Ox Pulse Ox Pulse Ox 01/01/18 16:00 149/59 H 97 01/01/18 14:10 01/01/18 11:27 132/60 92 L 01/01/18 11:19 132/60 94 L 92 L 01/01/18 10:52 98 01/01/18 08:48 100 01/01/18 08:47 01/01/18 08:00 132/60 100 01/01/18 07:44 98 01/01/18 06:02 160/69 H 94 L Weight 197 lb 12.8 oz 12/31/17 01/01/18 01/02/18 06:59 06:59 06:59 Intake Total 640 100 Output Total 400 1625 Balance 240 -1525 - Labs Result Diagrams: 12/31/17 04:37 01/01/18 04:39 Troponin/CKMB CK-MB (CK-2) 0.4 ng/mL (0-6.6) 12/29/17 16:05 Troponin I Less than 0.010 ng/mL (< 0.028) 12/29/17 19:06 - Assessment/Plan Pt. seen and eval. by me. She is feeling much better and denies any SOB. I agree with the A/P by the MUSHROOM PACKER. likely she can go home tomorrow.
[2018-01-01 17:20] VITALS: BP 149/59
--- NOTE | 2018-01-01 18:07 | PDOC.EVN ---
Event Note - Event Note Event Note: d/c dictation #[id number] d/w pt's dtr at bedside
--- NOTE | 2018-01-01 18:34 | DIS ---
PRIMARY CARE PHYSICIAN: Brian Tavarez MD SOCIAL WORK PROFESSOR: Mely Lopez MD DISCHARGE DIAGNOSES: 1. Congestive heart failure exacerbation 2. Hypokalemia. 3. Acute hypoxic and hypercapnic respiratory failure secondary to acute on chronic diastolic heart f ailure as noted above. 4. Chronic respiratory failure, on home O2. BRIEF SUMMARY OF HOSPITAL COURSE: This is an 82-year-old female who initially came in with a chief complaint of shortness of breath. She was found to be acutely hypoxic and hypercapnic, which was fel t in retrospect to be secondary to a diastolic heart failure exacerbation. The patient was placed on IV diuretics with subsequent improvement in her respiratory status. Simultaneously, the patient als o was placed on a 1500 mL fluid restriction diet as well. At the time of discharge, the patient's O2 requirement has been down titrated to her baseline, 1.5 liters nasal cannula. The patient feels lindsay t her current respiratory status and overall status is close to her baseline. The patient's daughter who sees her every day and lives across the street concurs. The patient had some hypokalemia during this hospitalization, felt likely due to Lasix utilization. The patient has been continuously on 20 mEq of potassium daily during this hospitalization. This eri l continue on an outpatient basis as well. I have discussed fluid restriction with the patient and her daughter at bedside extensively. It is r ecommended that the patient stay on a 1500 mL a day fluid restriction. 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 CONSULTATIONS: Cardiology. MEDICATION RECONCILIATION: Please see the EMR for full details. Briefly, the patient will resume he r home medications. The patient's Lasix dosing has not changed from her chronic 40 mg p.o. daily. D ue to hypokalemia on initial hospitalization, the patient is also being discharged on potassium 20 mE q daily. I have discussed with the patient and her daughter that this may end up being a short-term medication and liable to further reassessment. DISCHARGE INSTRUCTIONS: The patient has been asked to follow up closely with her primary care provid er. She has also been asked to obtain a BMP in 1 week or roughly 7-10 days. She has also been asked to follow up closely with Cardiology on an outpatient basis. Both the patient and her daughter at [facility] are able to complete teach-back. PATIENT'S CONDITION AT DISCHARGE: At the time of discharge, the patient is hemodynamically stable. She is functioning at her baseline ADL ability and tolerating her baseline diet. Of note, given the patient's chronic medical issues, she is at risk for recurrent hospitalizations du e to congestive heart failure exacerbation. I have discussed the patient's overall prognosis with th e patient and her daughter at bedside. Greater than 30 minutes spent coordinating discharge for the patient.
[2018-01-02] MEDS ORDERED: Furosemide 40 MG TAB PO SCH (09:00)
== END 2018-01-01 18:38 | disposition home or self-care (01) | DRG 291 ==
LOC: ERS 15:33 → 2NO 19:43
PROVIDERS: ADMIT Internal Medicine; ATTEND Internal Medicine
DX: I13.0 Hypertensive heart and chronic kidney disease with heart failure and stage 1 through stage 4 chronic kidney disease, or unspecified chronic kidney disease (principal); I50.33 Acute on chronic diastolic (congestive) heart failure; J96.22 Acute and chronic respiratory failure with hypercapnia; J96.21 Acute and chronic respiratory failure with hypoxia; N18.3 Chronic kidney disease, stage 3 (moderate); E87.6 Hypokalemia; Z99.81 Dependence on supplemental oxygen; E11.22 Type 2 diabetes mellitus with diabetic chronic kidney disease; G47.33 Obstructive sleep apnea (adult) (pediatric); E78.5 Hyperlipidemia, unspecified; E03.9 Hypothyroidism, unspecified; F41.8 Other specified anxiety disorders; E66.9 Obesity, unspecified; Z68.38 Body mass index [BMI] 38.0-38.9, adult; Z95.0 Presence of cardiac pacemaker
CPT/HCPCS: 36415; 36416; 71045; 80048; 80053; 81003; 82550; 82553; 82805; 83690; 83735; 83880; 84484; 85025; 93005; 93798; 94640; 94660; 94760; 96361; 96374; A4216; G8978-GP-CH; G8979-GP-CH; G8980-GP-CH; J1650; J1815; J1940; J3475; J7050; J7620

== ENCOUNTER 2018-02-04 15:53 | Emergency (ER) | payer MEDICARE, MEDICAID ==
--- NOTE | 2018-02-04 18:05 | ULT ---
LEFT UPPER EXTREMITY VENOUS ULTRASOUND: 02/04/18 COMPARISON: None. HISTORY: Left upper extremity pain and edema. TECHNIQUE: Multiplanar kellogg scale and color doppler images were obtained in a left upper extremity venous ultras ound. Spectral analysis of the doppler waveforms were performed. FINDINGS: The left internal jugular vein demonstrates normal compression and flow without evidence of thrombus. the left subclavian vein demonstrates normal flow and augmentation without evidence of thrombus. The left axillary and brachial veins demonstrate normal compression, flow, and augmentation without evid ence of thrombus. The basilic and cephalic veins are patent. The venous structures distal to the elbo w are patent without evidence of DVT. IMPRESSION: No evidence of DVT. POS: [facility]
== END 2018-02-04 17:23 | disposition home or self-care (01) ==
LOC: ERS 15:53
DX: M79.89 Other specified soft tissue disorders (principal); E11.9 Type 2 diabetes mellitus without complications; I11.0 Hypertensive heart disease with heart failure; I50.9 Heart failure, unspecified; D64.9 Anemia, unspecified; F32.9 Major depressive disorder, single episode, unspecified; Z87.891 Personal history of nicotine dependence; Z79.899 Other long term (current) drug therapy
CPT/HCPCS: 94760

== ENCOUNTER 2018-02-08 06:35 | Emergency (ER) | payer MEDICARE, MEDICAID ==
[2018-02-08 07:08] LABS: #Basophils 0.1 thou/uL (0.0-0.2); #Eosinphils 0.4 thou/uL (0.0-0.7); #Lymphocytes 1.9 thou/uL (1.20-3.40); #Monocytes 1.1 thou/uL (0.11-0.59); #Neutrophils 7.3 thou/uL (1.40-6.50); %Basophils 0.5 % (0.0-1.0); %Eosinophils 4.1 % (0.0-10.0); %Lymphocytes 17.8 % (21.0-51.0); %Monocytes 10.3 % (0.0-10.0); %Neutrophils 67.3 % (42.0-75.0); Hemoglobin 10.1 g/dL (12.0-16.0); Mean Corpuscular HGB CONC 30.7 g/dL (32.0-36.0); Mean Corpuscular Hemoglobin 26.5 pg (27.0-31.0); Mean Corpuscular Volume 86.2 fL (78.0-98.0); Mean Platelet Volume 7.8 fL (7.4-10.4); Platelet Count 338 thou/uL (130-400); Red Blood Cell (RBC) Count 3.83 mill/uL (4.20-5.40); White Blood Cell (WBC) Count 10.9 thou/uL (4.8-10.8)
[2018-02-08 07:27] LABS: ALT (SGPT) 16 U/L (8-55); AST (SGOT) 20 U/L (5-34); Albumin 3.8 g/dL (3.4-4.8); Alkaline Phosphatase 98 U/L (40-150); Anion Gap 12 mmol/L (10-20); BUN (Urea Nitrogen) 9 mg/dL (9.8-20.1); Bilirubin, Total 0.4 mg/dL (0.2-1.2); Calc. Creatinine Clearance 0 mL/min (70-130); Calcium 9.8 mg/dL (7.8-10.44); Carbon Dioxide 31 mmol/L (23-31); Chloride 99 mmol/L (98-107); Estimated GFR-MDRD 51; Globulin 4.1 g/dL (2.4-3.5); Glucose 137 mg/dL (83-110); Potassium 3.4 mmol/L (3.5-5.1); Protein, Total 7.9 g/dL (6.0-8.3); Sodium 139 mmol/L (136-145)
[2018-02-08] MEDS ORDERED: Lidocaine Viscous Sol 2% 15 ml UD Cup ONE (07:28)
[2018-02-08] MEDS ORDERED: Mag-Al 1200 mg/1200 mg/30 ML UDCUP ONE (07:28)
[2018-02-08 07:37] LABS: CKMB 0.4 ng/mL (0-6.6); Troponin I Less than 0.010 ng/mL (< 0.028)
--- NOTE | 2018-02-08 07:43 | RAD ---
PORTABLE CHEST: Date: 02/08/18 PROVIDED CLINICAL HISTORY: Chest pain. FINDINGS: Comparison made with the study dated 12/29/17. Cardiac and mediastinal silhouette is unchanged in appearance. Cardiomegaly persists. Vascular calcif ication again seen. Prominence of the pulmonary vasculature and pulmonary interstitium are redemonstr ated. The left lung base is poorly evaluated on the basis of cardiomegaly and patient body habitus. L eft subclavian cardiac pacing device is again seen. No evidence for pneumothorax. IMPRESSION: Findings suggesting congestive failure. POS: [facility]
--- NOTE | 2018-02-15 11:18 | EKG ---
Test Reason : EPIGASTRIC PAIN Blood Pressure : / mmHG Vent. Rate : 064 BPM Atrial Rate : 064 BPM P-R Int : 180 ms QRS Dur : 090 ms QT Int : 396 ms P-R-T Axes : 012 076 -06 degrees QTc Int : 408 ms Normal sinus rhythm Low voltage QRS T wave abnormality, consider anterior ischemia Abnormal ECG notem Confirmed by MAINOR OWENS M.D. ([id number]), general expeditor DAVID DANG ([id number]) on 02/15/2018 11:17:55 AM Referred By: Confirmed By:MAINOR OWENS M.D.
== END 2018-02-08 09:22 | disposition home or self-care (01) ==
LOC: ERS 06:35
DX: R07.89 Other chest pain (principal); E11.9 Type 2 diabetes mellitus without complications; I11.0 Hypertensive heart disease with heart failure; I50.9 Heart failure, unspecified; D64.9 Anemia, unspecified; F32.9 Major depressive disorder, single episode, unspecified; F20.9 Schizophrenia, unspecified; Z87.891 Personal history of nicotine dependence; Z79.899 Other long term (current) drug therapy
CPT/HCPCS: 36415; 71045; 80053; 82553; 83880; 84484; 85025; 93005; 94760

== ENCOUNTER 2018-02-10 06:52 | Emergency (ER) | payer MEDICARE, MEDICAID ==
[2018-02-10] MEDS ORDERED: Lidocaine Viscous Sol 2% 15 ml UD Cup ONE (07:36)
[2018-02-10] MEDS ORDERED: Mag-Al 1200 mg/1200 mg/30 ML UDCUP ONE (07:36)
--- NOTE | 2018-02-10 08:41 | RAD ---
PORTABLE CHEST: Date: 02/10/18 HISTORY: Chest pain. Patient feels like a foreign body is in her throat. COMPARISON: 02/08/18. FINDINGS: Heart size is enlarged with a pacemaker present. Chronic appearing lung changes are seen, which appea r stable as compared to the prior study. IMPRESSION: Stable exam. POS: [facility]
--- NOTE | 2018-02-15 12:19 | EKG ---
Test Reason : Blood Pressure : / mmHG Vent. Rate : 062 BPM Atrial Rate : 062 BPM P-R Int : 206 ms QRS Dur : 088 ms QT Int : 414 ms P-R-T Axes : 000 102 112 degrees QTc Int : 420 ms Atrial-paced rhythm Rightward axis Low voltage QRS T wave abnormality, consider anterior ischemia Abnormal ECG Confirmed by ALYSHA GRAHAM ([id number]), content editor DAVID DANG ([id number]) on 02/15/2018 12:19:17 PM Referred By: Confirmed By:ALYSHA GRAHAM
== END 2018-02-10 08:48 | disposition home or self-care (01) ==
LOC: ERS 06:52
DX: R07.89 Other chest pain (principal); E11.9 Type 2 diabetes mellitus without complications; I11.0 Hypertensive heart disease with heart failure; I50.9 Heart failure, unspecified; D64.9 Anemia, unspecified; F32.9 Major depressive disorder, single episode, unspecified; F20.9 Schizophrenia, unspecified; Z87.891 Personal history of nicotine dependence; Z79.899 Other long term (current) drug therapy
CPT/HCPCS: 71045; 93005

== ENCOUNTER 2018-03-04 12:01 | Emergency (ER) | payer MEDICARE, MEDICAID ==
[2018-03-04 12:40] LABS: #Basophils 0.1 thou/uL (0.0-0.2); #Eosinphils 0.3 thou/uL (0.0-0.7); #Lymphocytes 1.9 thou/uL (1.20-3.40); #Monocytes 0.8 thou/uL (0.11-0.59); %Basophils 0.6 % (0.0-1.0); %Eosinophils 3.4 % (0.0-10.0); %Lymphocytes 20.7 % (21.0-51.0); %Monocytes 8.9 % (0.0-10.0); %Neutrophils 66.4 % (42.0-75.0); Hemoglobin 9.5 g/dL (12.0-16.0); Mean Corpuscular HGB CONC 30.4 g/dL (32.0-36.0); Mean Corpuscular Hemoglobin 26.6 pg (27.0-31.0); Mean Corpuscular Volume 87.4 fL (78.0-98.0); Mean Platelet Volume 7.9 fL (7.4-10.4); Platelet Count 259 thou/uL (130-400); RBC Distribution Width 11.9 % (11.5-14.5); Red Blood Cell (RBC) Count 3.58 mill/uL (4.20-5.40); White Blood Cell (WBC) Count 9.1 thou/uL (4.8-10.8)
[2018-03-04 13:06] LABS: CKMB 0.2 ng/mL (0-6.6); Troponin I Less than 0.010 ng/mL (< 0.028)
[2018-03-04 13:08] LABS: ALT (SGPT) 16 U/L (8-55); AST (SGOT) 20 U/L (5-34); Albumin 3.7 g/dL (3.4-4.8); Alkaline Phosphatase 77 U/L (40-150); Anion Gap 9 mmol/L (10-20); BUN (Urea Nitrogen) 20 mg/dL (9.8-20.1); Bilirubin, Total 0.4 mg/dL (0.2-1.2); CK (CPK) 63 U/L (29-168); Calc. Creatinine Clearance 0 mL/min (70-130); Calcium 9.3 mg/dL (7.8-10.44); Carbon Dioxide 34 mmol/L (23-31); Chloride 98 mmol/L (98-107); Estimated GFR-MDRD 47; Globulin 3.6 g/dL (2.4-3.5); Glucose 163 mg/dL (83-110); Magnesium 1.5 mg/dL (1.6-2.6); Potassium 3.3 mmol/L (3.5-5.1); Protein, Total 7.3 g/dL (6.0-8.3); Sodium 138 mmol/L (136-145)
--- NOTE | 2018-03-04 14:04 | RAD ---
RIGHT ANKLE 3 VIEWS: Date: 03/04/18 HISTORY: Injury with pain. FINDINGS: Mild soft tissue swelling. No evidence of fracture identified. Small enthesophytes from the calcaneus. IMPRESSION: No acute fracture identified. POS: [facility]
--- NOTE | 2018-03-04 14:15 | RAD ---
PORTABLE CHEST: HISTORY: Syncope. COMPARISON: 02/10/2018 FINDINGS: Heart size is enlarged with a pacemaker present. The pulmonary vessels appear mildly engorged. Ther e are some increased interstitial markings. Findings are fairly stable, as compared to the prior exa mination. Perhaps slightly increased perihilar lung markings. IMPRESSION: Cardiomegaly, mainly with chronic appearing lung change. I think the majority of the interstitial ch anges are chronic in nature, but there could be some element of edema present. POS: [facility]
[2018-03-04] MEDS ORDERED: Potassium Chloride 20 MEQ in Premix Bag 1 BAG IVPB SCH (14:30)
[2018-03-04] MEDS ORDERED: Magnesium 2 GM/50 ML 2 GM in Premix Bag 1 BAG IVPB SCH (14:30)
== END 2018-03-04 17:09 | disposition home or self-care (01) ==
LOC: ERS 12:01
DX: E87.6 Hypokalemia (principal); E83.42 Hypomagnesemia; R55 Syncope and collapse; E11.9 Type 2 diabetes mellitus without complications; E78.5 Hyperlipidemia, unspecified; I11.0 Hypertensive heart disease with heart failure; I50.9 Heart failure, unspecified; D64.9 Anemia, unspecified; F32.9 Major depressive disorder, single episode, unspecified; F20.9 Schizophrenia, unspecified; Z87.891 Personal history of nicotine dependence; Z79.899 Other long term (current) drug therapy; Z79.84 Long term (current) use of oral hypoglycemic drugs
CPT/HCPCS: 36415; 71045; 80053; 82550; 82553; 83735; 83880; 84484; 85025; 93005; 94760; 96365; 96367; J3480

== ENCOUNTER 2018-03-12 09:21 | Outpatient (CLI) | payer MEDICARE, MEDICAID ==
--- NOTE | 2018-03-12 11:51 | RAD ---
PA AND LATERAL CHEST: Indication: History of dyspnea. Comparison: 02-08-18 FINDINGS: There is persistent cardiomegaly with pulmonary vascular congestion, perihilar and interstitial edema . There are tiny bilateral pleural effusions. Pacemaker is unchanged. Osseous structures are similar appearing. IMPRESSION: 1. Persistent findings of CHF. 2. Stable dual-lead pacemaker. POS: [facility]
== END 2018-03-12 09:22 | disposition home or self-care (01) ==
LOC: RAD 09:21
PROVIDERS: ATTEND Internal Medicine
DX: R06.00 Dyspnea, unspecified (principal); I50.9 Heart failure, unspecified; Z95.0 Presence of cardiac pacemaker
CPT/HCPCS: 71046

== ENCOUNTER 2018-04-15 12:06 | Observation (INO) | payer MEDICARE, MEDICAID ==
[2018-04-15 13:10] LABS: #Basophils 0.1 thou/uL (0.0-0.2); #Eosinphils 0.4 thou/uL (0.0-0.7); #Monocytes 0.9 thou/uL (0.11-0.59); #Neutrophils 6.7 thou/uL (1.40-6.50); %Basophils 0.8 % (0.0-1.0); %Eosinophils 3.7 % (0.0-10.0); %Lymphocytes 19.8 % (21.0-51.0); %Monocytes 8.6 % (0.0-10.0); %Neutrophils 67.1 % (42.0-75.0); Hemoglobin 9.4 g/dL (12.0-16.0); Mean Corpuscular HGB CONC 29.8 g/dL (32.0-36.0); Mean Corpuscular Hemoglobin 25.9 pg (27.0-31.0); Mean Platelet Volume 7.7 fL (7.4-10.4); Platelet Count 305 thou/uL (130-400); RBC Distribution Width 12.2 % (11.5-14.5); Red Blood Cell (RBC) Count 3.63 mill/uL (4.20-5.40)
[2018-04-15 13:15] LABS: Bilirubin Negative (Negative); Blood, Urine Negative (Negative); Clarity CLEAR (Clear); Glucose, Urine (Dipstick) Negative (Negative); Leukocyte Negative (Negative); Nitrite Negative (Negative); Protein, Urine (Dipstick) Negative (Neg-Trace); Specific Gravity, Urine 1.009 (1.002-1.036); Urobilinogen 0.2 mg/dL (0.2-1.0); pH, Urine 6.5 (5.0-9.0)
[2018-04-15 13:19] LABS: ALT (SGPT) 18 U/L (8-55); AST (SGOT) 19 U/L (5-34); Albumin 3.8 g/dL (3.4-4.8); Alkaline Phosphatase 85 U/L (40-150); Anion Gap 11 mmol/L (10-20); BUN (Urea Nitrogen) 22 mg/dL (9.8-20.1); Bilirubin, Total 0.3 mg/dL (0.2-1.2); CK (CPK) 66 U/L (29-168); Calc. Creatinine Clearance 0 mL/min (70-130); Calcium 9.3 mg/dL (7.8-10.44); Carbon Dioxide 34 mmol/L (23-31); Chloride 96 mmol/L (98-107); Estimated GFR-MDRD 47; Globulin 3.9 g/dL (2.4-3.5); Glucose 157 mg/dL (83-110); Potassium 3.6 mmol/L (3.5-5.1); Protein, Total 7.7 g/dL (6.0-8.3); Sodium 137 mmol/L (136-145)
[2018-04-15 13:35] LABS: CKMB 0.3 ng/mL (0-6.6); Troponin I Less than 0.010 ng/mL (< 0.028)
--- NOTE | 2018-04-15 13:35 | RAD ---
UPRIGHT PORTABLE CHEST ONE VIEW: HISTORY: An 83-year-old female with a history of syncope. The patient was found down for approximately 5 rach elena. COMPARISON: 03/12/2018 FINDINGS: Cardiomegaly with bilateral vascular congestion and some bilateral interstitial edema, pleural effusi ons, and some patchy alveolar parenchymal changes in the perihilar regions as well. These may be sli ghtly more prominent than on a 03/12/2018 study. No new confluent process. IMPRESSION: Cardiomegaly with bilateral vascular congestion and some interstitial and alveolar parenchymal change s in the perihilar regions, felt more likely to be related to some edema rather than atypical bilater al pneumonia or pneumonitis. These markings are slightly more prominent. No new confluent process. Continue short-term followup for clearing or stability. No pneumothorax. POS: [facility]
[2018-04-15] MEDS ORDERED: Acetaminophen 325 MG TAB PO PRN (16:14)
[2018-04-15 16:41] VITALS: BMI 38.9
[2018-04-15] MEDS ORDERED: Dextrose 5% in Water 1,000 ML IV PRN (17:26)
[2018-04-15] MEDS ORDERED: HumaLOG 300 UNITS/3 ML VIAL SC PRN (17:26)
[2018-04-15] MEDS ORDERED: Dextrose 50% Abboject 50 ML SYRINGE SLOW IVP PRN (17:26)
[2018-04-15] MEDS ORDERED: cloNIDine 0.1 MG TAB PO PRN (18:17)
--- NOTE | 2018-04-15 18:19 | HP ---
PRIMARY CARE PHYSICIAN: Brian Tavarez M.D. CHIEF COMPLAINT: Syncope. HISTORY OF PRESENT ILLNESS: The patient presented to the emergency room today via ambulance after marely brito had an episode of syncope in the bathroom earlier today. Reports she was in the shower, felt a lit tle dizzy, sat down, was having a bowel movement when she had a syncopal episode. Patient states her caregiver found her slumped. She does not have any recollection of the event. EMS reported that marely brito did not fall and hit her head and was helped down to the floor by the provider. The patient denies any chest pain or shortness of breath. Denies any neurological complaints. Denies any weakness, fo marcin or sensory deficits. Reports that she does get lightheaded sometimes when she goes from a sittin g to a standing position. Patient does have a history of CHF, COPD, had a pacemaker placed in 2004 or sick sinus syndrome. Has a history of diabetes type 2, hypertension, anemia, hyperlipidemia, and hypothyroidism. The patient was seen several times over the summer for presyncopal episodes of conge stive heart failure exacerbation and shortness of breath. Reports that she has an appointment to see Dr. Lopez in the morning as a regular checkup. The patient had an echocardiogram in November of this r which showed an EF of 60-65%. E/A flow reversal noted suggestive of diastolic dysfunction, left at rium was mildly dilated. Mild mitral regurg was present. Aortic valve was sclerotic. Mild tricuspi d regurgitation. In the emergency room today, the patient was given a chest x-ray which showed cardi omegaly with bilateral vascular congestion and some interstitial and alveolar parenchymal changes in the perihilar regions which is felt likely to be related to some edema rather than some atypical pneu monia. No new acute process. First troponin in the emergency room was negative. Labs were unremark able. The patient was admitted to observation unit for further management of syncope. The patient d enies any current chest pain, shortness of breath, or dizziness. HOME MEDICATIONS: Include risperidone 2 mg p.o. b.i.d., simvastatin 10 mg p.o. daily, levothyroxine 75 mcg p.o. daily, isosorbide 30 mg p.o. daily, Lopressor 25 mg p.o. b.i.d., iron 325 mg daily, losar kimble/hydrochlorothiazide 100/25 mg p.o. daily, Tylenol PM 1 capsule as needed at bedtime, Lantus 5 uni ts subcu daily, furosemide 40 mg p.o. daily. ALLERGIES: Include CIMETIDINE. PAST SURGICAL HISTORY: The patient has had an appendectomy, cholecystectomy. FAMILY HISTORY: Noncontributory. SOCIAL HISTORY: The patient lives alone, has a caregiver. Denies any alcohol. Reports that she did smoke but stopped in 1971. LABORATORY RESULTS: White blood cell count is 10, hemoglobin 9.4, hematocrit 31.6, platelet count 30 5. Chemistry: Sodium is 137, potassium 3.6, chloride 96, carbon dioxide 34, gap is 11, BUN is 22, c reatinine is 1.32. Estimated GFR is 47. Glucose is 157, calcium is 9.3. Troponin I less than 0.010 . BNP 51.7. Urine was unremarkable. REVIEW OF SYSTEMS: CONSTITUTIONAL: Denies chills or fever. Reports feeling better, feeling hungry. EYES: Negative. ENT: Denies any rhinorrhea, sore throat, or voice changes. CARDIOVASCULAR: Denies any chest pain or palpitations. RESPIRATORY: Denies any shortness of breath. Denies cough. GASTROINTESTINAL: Denies abdominal pain. Denies constipation, diarrhea, nausea, or vomiting. GENITOURINARY: Female. Denies any dysuria or increased frequency. MUSCULOSKELETAL: Denies any focal pain. Denies any injury. SKIN: Denies rash or skin changes. NEUROLOGIC: Denies headache. Denies current dizziness. Does report dizziness early today when she was in the shower. LYMPHATIC: Denies any abnormal blood clotting. PHYSICAL EXAMINATION: VITAL SIGNS: Blood pressure 130/70, pulse is 60, respirations are 20, temperature 97.8. GENERAL: Patient is 98% on 2 liters of oxygen. HEENT: Atraumatic, normocephalic. Eyes: Pupils are equally round and reactive to light. Extraocul ar muscles intact. ENT: Mucous membranes are moist. NECK: Normal range of motion. Trachea is midline. No JVD. RESPIRATORY/CHEST: Breath sounds are clear, slightly diminished at the bases. CARDIOVASCULAR: S1, S2. Heart sounds are normal. The patient does have a pacemaker. ABDOMEN: Female. Nontender on exam. Bowel sounds are normal. No peritoneal signs. BACK: Normal inspection. Normal range of motion. No tenderness. EXTREMITIES: Upper extremity inspection is normal. Range of motion is normal. Motor strength is no rmal. Sensation is intact. Radial pulses are normal. Lower extremity inspection is normal. Range of motion is normal. Strength is normal. Sensation is intact bilaterally. Posterior tibial pulses are normal. Pedal pulses are normal. No edema is noted bilaterally. NEURO: The patient is oriented to person, place, and time. Speech is normal. Cranial nerves are in tact. No focal motor deficits. No cerebellar deficits. SKIN: Warm, dry, normal in color. No rashes seen. DIAGNOSTIC DATA: EKG has a paced rhythm, no ectopics. Conduction is normal. [place] is normal. ASSESSMENT AND PLAN: 1. Syncope. We will obtain an interrogation of pacemaker. We will consult Dr. Lopez. 2. Congestive heart failure. We will continue Lasix. 3. Diabetes. We will continue home medications and monitor blood sugar. 4. Hypertension. We will monitor vital signs. We will continue home medications. 5. Anemia. We will monitor blood counts. 6. Hypothyroidism. The patient will be continued on home medication. Hospital course would depend on clinical findings.
[2018-04-15] MEDS ORDERED: PROVENTIL INHALER 6.7 G (200 INHALATIONS) INH PRN (19:00)
[2018-04-15] MEDS ORDERED: Ferrous Sulfate 325 MG TAB PO SCH (19:00)
[2018-04-15] MEDS ORDERED: Simvastatin 5 MG TAB PO SCH (21:00)
[2018-04-15] MEDS: Metoprolol Tartrate 50 MG TAB PO SCH (21:11)
[2018-04-16 03:39] LABS: #Eosinphils 0.3 thou/uL (0.0-0.7); #Lymphocytes 1.7 thou/uL (1.20-3.40); #Neutrophils 7.5 thou/uL (1.40-6.50); %Basophils 0.3 % (0.0-1.0); %Eosinophils 2.9 % (0.0-10.0); %Monocytes 9.7 % (0.0-10.0); %Neutrophils 71.1 % (42.0-75.0); Hemoglobin 9.2 g/dL (12.0-16.0); Mean Corpuscular HGB CONC 29.7 g/dL (32.0-36.0); Mean Corpuscular Hemoglobin 25.9 pg (27.0-31.0); Mean Corpuscular Volume 87.2 fL (78.0-98.0); Mean Platelet Volume 7.6 fL (7.4-10.4); Platelet Count 280 thou/uL (130-400); RBC Distribution Width 11.8 % (11.5-14.5); Red Blood Cell (RBC) Count 3.55 mill/uL (4.20-5.40); White Blood Cell (WBC) Count 10.5 thou/uL (4.8-10.8)
[2018-04-16 03:58] LABS: ALT (SGPT) 19 U/L (8-55); AST (SGOT) 19 U/L (5-34); Albumin 3.5 g/dL (3.4-4.8); Alkaline Phosphatase 81 U/L (40-150); Anion Gap 13 mmol/L (10-20); BUN (Urea Nitrogen) 20 mg/dL (9.8-20.1); Bilirubin, Total 0.2 mg/dL (0.2-1.2); Calc. Creatinine Clearance 54 mL/min (70-130); Calcium 9.3 mg/dL (7.8-10.44); Carbon Dioxide 30 mmol/L (23-31); Chloride 98 mmol/L (98-107); Estimated GFR-MDRD 56; Globulin 3.6 g/dL (2.4-3.5); Glucose 112 mg/dL (83-110); Potassium 3.4 mmol/L (3.5-5.1); Protein, Total 7.1 g/dL (6.0-8.3); Sodium 138 mmol/L (136-145)
[2018-04-16 04:15] LABS: Thyroid Stimulating Hormone 2.5241 uIU/mL (0.35-4.94)
[2018-04-16 04:40] LABS: Free T4 (Free Thyroxine) 0.83 ng/dL (0.70-1.48)
[2018-04-16] MEDS ORDERED: Levothyroxine Sodium 75 MCG TAB PO SCH (06:00)
[2018-04-16] MEDS ORDERED: Potassium Chloride 20 MEQ TAB PO SCH (08:00)
[2018-04-16] MEDS ORDERED: Ferrous Sulfate 325 MG TAB PO SCH (08:00)
[2018-04-16] MEDS ORDERED: Sodium Chloride 0.9% 500 ML IV SCH (08:15)
[2018-04-16] MEDS ORDERED: risperiDONE 1 MG TAB PO SCH (09:00)
[2018-04-16] MEDS ORDERED: Non-Formulary Item 1 EACH (Insulin Glargine,Hum.Rec.Anlog [Toujeo Solostar] 10 UNITS) SQ SCH (09:00)
[2018-04-16] MEDS ORDERED: Insulin Glargine 10 UNITS in Pre-Filled Syringe 1 EACH SC SCH (09:00)
[2018-04-16] MEDS ORDERED: Amlodipine 5 MG TAB PO SCH (09:00)
[2018-04-16] MEDS: Furosemide 40 MG TAB PO SCH ×2 (10:31→15:56)
[2018-04-16] MEDS: Metoprolol Tartrate 50 MG TAB PO SCH (10:32)
--- NOTE | 2018-04-16 12:36 | CON ---
DATE OF CONSULTATION: 04/16/2018 PRIMARY CARE PHYSICIAN: Dr. Brian Tavarez PRIMARY TOP HAT BODY MAKER: Dr. Mely Lopez REFERRING PHYSICIAN: Ms. Alannah oJn REASON FOR CARDIOLOGY CONSULTATION: Syncope. HISTORY OF PRESENT ILLNESS: Ms. Velasco is an 83-year-old female with a significant history of chronic respiratory failure with home oxygen and chronic diastolic heart failure, hypertension, pacemaker pl acement, diabetes, hyperlipidemia and hypothyroidism. The patient presented to the Emergency Departm ent for possible syncope episode. Yesterday when she was taking a shower, she started feeling dizzin ess and lightheadedness, so she sat down in the bathroom, but when she transferred from bathtub to [facility] to have a BM her dizziness was getting worse. And during this she was having BM. She star nakul having more dizziness and then she was passing out and at that time, she did recall that she pass ed out. She feel any lightheadedness or almost passing. The patient uses home oxygen for a history of chronic respiratory failure and she reports that she was wearing oxygen during those episodes and she denied any other cardiac complaints during the episode. She has checked her blood pressure every day. Her normal blood pressure is 120-130s. She has never noticed that she had a systolic blood pr essure less than 100. However, she reports that she had similar symptoms and actually at that time s he fell last month and she got injured to her right ankle. While she was using the commode at that t true. She has orthostatic blood pressure today of 121/57 in the supine position, 139/69 the sitting p osition, 143/61 in the standing position. The patient's pacemaker interrogation was done which shows no evidence of arrhythmia or rhythm or pulses. The patient's chest x-ray showed a cardiomyopathy with bilateral vascular congestion and the patient' s hemoglobin level has been 9 for a while, the patient's primary care doctor aware that she is on iro n supplement. She never had an EGD or colonoscopy. She denies any hematuria or blood in the stool. The patient had a history of sleep apnea, but she has not worn CPAP for a couple months due to the m alfunctioning of her CPAP machine. The patient's last echocardiogram was done in 11/2017 which shows EF of 60-65%, moderate left ventricular hypertrophy, mild dilated bilateral atrium, mild mitral valv e regurgitation, and mild tricuspid regurgitation. The patient had a pacemaker placement done in 2004 and carotid Doppler was done in 10/2016, which shows no significant stenosis in the bilateral ca rotid arteries. PAST MEDICAL HISTORY: 1. Chronic diastolic heart failure. 2. Hypertension. 3. Sick sinus syndrome with status post pacemaker placement in 2004. 4. Hyperlipidemia. 5. Diabetes type 2. 6. Gastroesophageal reflux disease. 7. Anemia. 8. Chronic kidney disease. 9. History of esophageal stricture requiring dilation. 10. Hypothyroidism 11. Anxiety and depression. PAST SURGICAL HISTORY: 1. Dual chamber pacemaker in 2004. 2. EGD, but unknown time. 3. Colonoscopy. Unknown time. 4. Cholecystectomy. 5. Appendectomy. ALLERGIES: She is allergic to TAGAMET AND CIMETIDINE. CURRENT MEDICATIONS: Temazepam 0.5 mg 1 tablet twice a day at the bedtime as needed, isosorbide mono nitrate ER 30 mg 1 tablet daily, losartan//hydrochlorothiazide 100/25 mg once a day, risperidone 2 mg 2 times a day, metformin 500 mg 3 times a day and clonidine 0.1 mg 1 tablet in the morning and 2 tab lets in the p.m., levothyroxine 75 mcg once a day, simvastatin 10 mg once a day, iron supplement once a day, multivitamin once a day, Tanisha-D once a day as needed, metoprolol 100 mg twice a day, potas sium chloride 20 mEq once a day, furosemide 40 mg twice a day FAMILY HISTORY: There is no significant heart disease in her family. Patient's mother due to complication from pneumonia. SOCIAL HISTORY: The patient is . The patient lives at home. The patient had a very good [facility] support. The patient's daughter lives close. She lives by herself. She denies tobacco, ETOH o r illicit drug abuse. REVIEW OF SYSTEMS: Twelve-point review of systems are reviewed and are negative, unless otherwise me ntioned in the HPI. PHYSICAL EXAMINATION: VITAL SIGNS: Blood pressure 126/73, pulse is 66, respiratory rate 17, temperature 98.6, O2 sat 95% w ith 2 liters nasal cannula. GENERAL: The patient is alert and oriented x4, well-developed, well-nourished. She is overweight, m ildly in respiratory distress, especially after she exercises or talks. HEAD: Atraumatic and normocephalic. EYES: Extraocular muscle movement intact. ENT: Oral and nasal mucosa are moist without lesion. NECK: Supple, no JVD, normal range of motion. LUNGS: Really diminished at the bases with rhonchi bilaterally. No significant wheezing noticed. CARDIOVASCULAR: Regular rate and rhythm, normal S1, S2. There are no S3, S4. No significant murmur , hives, thrill noted. Carotid pulse present without bruit. There are 2+ pulses in bilateral lower extremities. No edema noted. ABDOMEN: Soft, nontender. No mass to palpate. Bowel sounds are present. SKIN: Warm, dry, no lesion, eczema or bruise noted. MUSCULOSKELETAL: The patient able to move all extremities. The patient denied claudication. NEUROLOGIC: She is alert, oriented x4, nonfocal. LABORATORY DATA: WBC 10.5, hemoglobin 9.2, hematocrit 31.0, platelet 280. MCV is 87.2, MCH 25.9, MC HC 29.7. Sodium 138, potassium 3.4, BUN 20, creatinine 1.13, glucose 112, AST 19, ALT 19. BNP 50.7, TSH 2.541. Free T3 1.93, free T4 0.83. The patient's telemetry records have shown patient's sinus rhythm around 60s. ASSESSMENT AND PLAN: 1. Near syncopal episode. At this moment, the patient's pacemaker interrogation shows no abnormal r hythm or pulses. The patient's orthostatic blood pressure is stable, possible patient was back down while she was already having dizziness. At this moment, we would like to continue to monitor with e pacemaker and we instruct the patient to send the pacemaker information to Dr. Diaz's office when e feels any dizziness or lightheadedness or near syncopal episode. We would like to continue to [facility] vital signs also, but there are no indications for any further cardiac workup for this patient. 2. Hypertension. The patient's blood pressure is stable with the current medication. 3. Pacemaker placement. The patient's interrogation during this admission shows stable. 4. Chronic diastolic heart failure. Patient BNP is stable at this moment and we would like to patricia nue current medication. 5. Type 2 diabetes which is managed by primary care doctor, 6. Chronic respiratory failure with home oxygen. 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 7. Hyperlipidemia. The patient on the study at this moment, we would like to continue. 8. Hypothyroidism. The patient's TSH, T3, T4, all levels are stable. Thank you for allowing the Cardiology Service to participate in care of this patient. We will follow with the patient's care team and make further recommendations as appropriate.
[2018-04-16 15:57] VITALS: BP 166/75; TEMP 98.1
--- NOTE | 2018-04-16 19:31 | CON ---
DATE OF CONSULTATION: 04/16/2018 INDICATION FOR CONSULTATION: An 83-year-old female with a near syncopal episode, most likely vasovag al, possible syncope, uncertain. Please refer to the notes already dictated by the nurse soo vasquez Mrs. Velasco is an 83-year-old female who I have followed for quite some time. 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 She is on home O2. She also has diastolic dysfunction. She has had a his tory of a pacemaker insertion. She has diabetes, hypertension, hyperlipidemia, and also hypothyroidi sm. Yesterday morning, she was in the shower taking a bath and she felt somewhat dizzy, she got out of the toilet, had a bowel movement and then almost passed out. She did not completely pass out. Th en her healthcare provider who was with her at the house then called 911 and she was then transported here. Her evaluation of the pacemaker showed that she had a normal function. There was no indicati on of arrhythmias or any other malfunction of the device and I suspect that her blood pressure became hypotensive and she most likely had a vasovagal episode with hypotension while she was in the [place] [facility]. She has had some episodes of lightheadedness in the past. We cannot correlate this with any abn ormalities of the pacemaker and most likely this is due to her blood pressure becoming hypotensive. Otherwise, she denies any chest pain or shortness of breath. She has been doing relatively well at [facility]. She has home oxygen. She has had cardiomyopathy just due to the diastolic dysfunction, but she has had an ejection fraction about 60-65%. She does have left ventricular hypertrophy. Otherwise, she has been doing fine. She has also had a carotid Doppler performed last year which did not show a ny evidence of significant stenosis. As far as her past medical history, social history, family hist ory, review of systems, allergies, medications, please refer to the notes dictated by the nurse bernarda strickland. PHYSICAL EXAMINATION: GENERAL: Reveals a well-developed, well-nourished female who is in no acute distress at this time. She is alert and oriented. VITAL SIGNS: Blood pressure is 123/76, heart rate is in 60s and is irregular sometimes. She has pac ed rhythm at times and the most of the times, she appears to be in sinus rhythm without pacing. HEENT: Shows her head to be normocephalic and atraumatic. Carotid pulses are present. I did not he ar any bruits. CHEST: Clear to auscultation. I did not hear any significant rales, rhonchi, or wheezing. She does have some fine basilar rales which appear to be dry, most likely associated with her pulmonary disea se which is chronic in nature. CARDIOVASCULAR: Reveals a regular rate and rhythm with a normal S1, S2. I did not hear any S3 or S4 at this time. ABDOMEN: Shows obesity with positive bowel sounds. No organomegaly or masses are noted. EXTREMITIES: Femoral pulses are present. Extremities showed no clubbing, cyanosis or edema. Pedal pulses are also present. NEUROLOGIC: The patient is alert and oriented. IMPRESSION: 1. Most likely a vasovagal episode with near syncope associated with most likely hypotension. Pacem juan miguel function was normal. There is no indication. She had any other abnormality except for a decrea se in the blood pressure, unless she has some neurological events or inner ear problems but it seems to be totally related to the blood pressure. She was taking a hot shower when this occurred, when sh e started to feel lightheaded and dizzy. She has had a similar episode in the past. Also, while she was taking a hot shower, I have advised her not to take hot showers or remain in the hot water for a ny length of time due to possible basal dilatation and hypotension. 2. History of hypertension. The blood pressure is under good control at this time. We will continu e her present medications. 3. History of pacemaker insertion. This pacemaker interrogation was normal. 4. History of chronic diastolic dysfunction. Would not change any medicines at this time. She appe ars to be stable. 3. Diabetes. This will be dealt with by the primary care service. 5. History of chronic obstructive pulmonary disease and chronic respiratory problems. She has home O2 and will continue this. As far as any other problems, really she remains stable and she could be discharged home later today.
--- NOTE | 2018-04-17 12:52 | DIS ---
DATE OF ADMISSION: 04/15/2018 DATE OF DISCHARGE: 04/16/2018 PRIMARY CARE PHYSICIAN: Brian Tavarez M.D. CONSULTANTS: Mely Lopez M.D. for Cardiology. PROCEDURES: The patient had a chest x-ray, which showed some cardiomegaly with some bilateral vascular congestion. No new confluent process. Would recommend short term followup. DISCHARGE DIAGNOSES: Near syncope and collapse, most likely a vasovagal episode. The patient had an interrogation of her pacemaker, which was normal. History of hypertension, history of a pacemaker, history of chronic diastolic dysfunction, diabetes type 2, history of COPD. REVIEW OF SYSTEMS: The patient was examined by me on day of discharge. The patient denied any complaints. Denied any dizziness, chest pain, shortness of breath. Denied any shortness of breath or dizziness when she got up to go to the restroom. All other systems were reviewed and are negative. PHYSICAL EXAMINATION: VITAL SIGNS: Temperature 98.2, pulse is 66, respirations 18, blood pressure 121 /57, 95% on room air. HEENT: Head is atraumatic, normocephalic. Eyes, pupils are equally round and reactive to light. Extraocular muscles are intact. Mucous membranes are moist. NECK: Normal range of motion. Trachea is midline. No JVD is noted. RESPIRATORY/CHEST: Breath sounds are clear, slightly diminished at the bases. CARDIOVASCULAR: S1, S2. Heart sounds are normal. Pacemaker is noted in the surface of the skin, upper chest. ABDOMEN: Nontender on exam. Bowel sounds are normal. No peritoneal signs. BACK: Normal inspection. Normal range of motion. EXTREMITIES: Normal inspection x4. Normal range of motion x4. Motor strength 5/5 x4. Sensation is intact. Radial pulses are normal. Pedal pulses of lower extremities are normal. No edema is noted bilaterally. NEUROLOGIC: The patient is alert and oriented to person, place and time. Speech is normal. SKIN: Warm, dry and normal color. No rashes are seen. HOSPITAL COURSE: Ms. Velasco is a very pleasant 83-year-old female who presented to the emergency room on 04/15/2018 via ambulance after she had an episode of presyncope/syncope in the bathroom. She reports that she was in the shower, became dizzy, decided to sit down on the commode, was having a bowel movement when she slumped over. She had a caregiver present who was able to catch her and stop her from falling. Denies she fell or hit her head. Denies any chest pain or shortness of breath. She denied any neurological complaints. The patient does have a history of CHF, COPD, does have a pacemaker, type 2 diabetes , hypertension. She had been seen over the summer for presyncopal episodes as well as and congestive heart failure exacerbation with shortness of breath. Did report that she had an appointment to see Dr. Lopez on day of admission. Dr. Lopez was consulted. Pacemaker was interrogated, which showed no events to explain the pre-syncope. Dr. Lopez evaluated the patient and was comfortable sending her home if she remains stable, believed pre-syncopal episode most likely a vasovagal episode and instructed the patient not to take hot showers in the future. The patient's lab values remained stable. The patient's vital signs remained stable and the patient was sent home. DISCHARGE MEDICATIONS: Home medications will be continued, which includes amlodipine 5 mg p.o. daily, Klonopin 0.1 mg every 2 hours as needed p.r.n., Lantus 10 units subcutaneously a.m., iron 27 mg p.o. daily, Imdur 30 mg p.o. daily, levothyroxine 75 mcg p.o. daily, Lopressor 100 mg p.o. b.i.d., risperidone 2 mg p.o. b.i.d., Zocor 10 mg p.o. daily, Restoril 7.5 mg p.o. at bedtime, furosemide 40 mg p.o. b.i.d. ALLERGIES: The patient is allergic to TAGAMET. DISCHARGE CONDITION: The patient's condition is stable. DISPOSITION: The patient will be discharged to home. DISCHARGE INSTRUCTIONS: She will need to follow up with Dr. Tavarez within the next week and follow up with Dr. Lopez in the next 2-3 weeks. LUIS
== END 2018-04-16 18:45 | disposition home or self-care (01) ==
LOC: ERS 12:06 → 2SW 15:53
PROVIDERS: ADMIT Family Medicine; ATTEND Family Medicine
DX: R55 Syncope and collapse (principal); J44.9 Chronic obstructive pulmonary disease, unspecified; I49.5 Sick sinus syndrome; E78.5 Hyperlipidemia, unspecified; E03.9 Hypothyroidism, unspecified; I35.8 Other nonrheumatic aortic valve disorders; I34.0 Nonrheumatic mitral (valve) insufficiency; I36.1 Nonrheumatic tricuspid (valve) insufficiency; D64.9 Anemia, unspecified; I13.0 Hypertensive heart and chronic kidney disease with heart failure and stage 1 through stage 4 chronic kidney disease, or unspecified chronic kidney disease; E11.22 Type 2 diabetes mellitus with diabetic chronic kidney disease; N18.9 Chronic kidney disease, unspecified; I50.32 Chronic diastolic (congestive) heart failure; J96.10 Chronic respiratory failure, unspecified whether with hypoxia or hypercapnia; G47.30 Sleep apnea, unspecified; F41.8 Other specified anxiety disorders; Z87.891 Personal history of nicotine dependence; Z79.4 Long term (current) use of insulin; Z79.899 Other long term (current) drug therapy; Z88.8 Allergy status to other drugs, medicaments and biological substances; Z99.81 Dependence on supplemental oxygen; Z99.89 Dependence on other enabling machines and devices; Z95.810 Presence of automatic (implantable) cardiac defibrillator
CPT/HCPCS: 71045; 80053; 81003; 82550; 82553; 82962 ×2; 83880; 84439; 84481; 84484; 85025; 93005; 94760; 97139; 99285; G0378 ×2; 36415; 36416; 84443; A4353

== ENCOUNTER 2018-04-23 08:54 | Outpatient (CLI) | payer MEDICARE, OTHER | END 2018-04-23 08:55 | disposition home or self-care (01) | LOC: BICMAMMO 08:54 | PROVIDERS: ATTEND Internal Medicine | DX: Z12.31 Encounter for screening mammogram for malignant neoplasm of breast (principal) | CPT/HCPCS: 77063; 77067 ==

== ENCOUNTER 2018-05-13 09:35 | Outpatient (CLI) | payer MEDICARE, MEDICAID ==
--- NOTE | 2018-05-13 12:57 | CT ---
CT CHEST WITHOUT CONTRAST: HISTORY: Pulmonary disease. Shortness of breath. COMPARISON: CT pulmonary angiogram of 08/26/2016. CT chest without contrast of 03/01/2016. FINDINGS: Absence of IV contrast reduces the sensitivity of the exam, particularly for evaluation of mediastina l, hilar, and vascular structures. A tiny pleural effusion is again seen. No significant pleural effusions are identified. Chronic int erstitial fibrotic lung changes are again noted. The heart is enlarged. The tracheobronchial tree a ppears patent. There are degenerative changes in the spine. There are vascular calcifications witho ut evidence of aneurysmal dilatation of the thoracic aorta. IMPRESSION: 1. Chronic interstitial fibrotic lung changes. 2. Cardiomegaly. 3. Tiny pericardial effusion. POS: [facility]
== END 2018-05-13 09:36 | disposition home or self-care (01) ==
LOC: CT 09:35
PROVIDERS: ATTEND Internal Medicine
DX: J84.9 Interstitial pulmonary disease, unspecified (principal); G47.33 Obstructive sleep apnea (adult) (pediatric); I51.7 Cardiomegaly; J90 Pleural effusion, not elsewhere classified
CPT/HCPCS: 71250

== ENCOUNTER 2018-09-11 09:11 | Outpatient (CLI) | payer MEDICARE, MEDICAID | END 2018-09-11 09:12 | disposition home or self-care (01) | LOC: CP 09:11 | PROVIDERS: ATTEND Internal Medicine | DX: J84.9 Interstitial pulmonary disease, unspecified (principal); G47.33 Obstructive sleep apnea (adult) (pediatric) | CPT/HCPCS: 94010; 94729 ==

== ENCOUNTER 2018-12-09 08:54 | Outpatient (CLI) | payer MEDICARE, MEDICAID ==
[2018-12-09 09:40] LABS: Actual Bicarbonate (HCO3a) 22.5 mEq/L (22-28); Analyzer IN Cardio OR; Base Excess (BEa) -1.9 mEq/L (-2.0 to +3.0); CO2 Tension 36.6 mmHg (35.0-45.0); Calcium, Ionized 1.17 mmol/L (1.12-1.30); Carboxyhemoglobin (COHb) 0.8 gm% (0.0-3.0); Hemoglobin (Hb) 10.7 g/dL (12.0-16.0); Potassium - ABG Lab 4.13 mmol/L (3.70-5.30); pH, Arterial 7.41 (7.35-7.45)
[2018-12-09 09:41] LABS: O2 Tension (PaO2) 46.3 mmHg (> 60.0); Puncture Site LR
--- NOTE | 2018-12-10 15:35 | PFT ---
PATIENT HISTORY: HEIGHT: WEIGHT: SMOKER: NO HOW LONG: PACKS PER DAY PRODUCTIVE COUGH: LUNG DISEASE: PHYSICIAN INTERPRETATION FINAL REPORT: Blood gas was ordered which shows very severe hypoxemia. Normal acid base balance. Juice Weigher: Director Database: KRISHNA SMITH
== END 2018-12-09 08:55 | disposition home or self-care (01) ==
LOC: CP 08:54
PROVIDERS: ATTEND Internal Medicine
DX: J96.11 Chronic respiratory failure with hypoxia (principal); J84.9 Interstitial pulmonary disease, unspecified
CPT/HCPCS: 82805

== ENCOUNTER 2018-12-16 04:40 | Inpatient (IN) | payer MEDICARE, MEDICAID ==
[2018-12-16 05:27] LABS: Hemoglobin 9.9 g/dL (12.0-16.0); Mean Corpuscular HGB CONC 29.9 g/dL (32.0-36.0); Mean Corpuscular Hemoglobin 26.3 pg (27.0-31.0); Mean Corpuscular Volume 87.8 fL (78.0-98.0); Platelet Count 328 thou/uL (130-400); RBC Distribution Width 12.5 % (11.5-14.5); Red Blood Cell (RBC) Count 3.76 mill/uL (4.20-5.40); White Blood Cell (WBC) Count 11.1 thou/uL (4.8-10.8)
[2018-12-16] MEDS ORDERED: Aspirin Chewable 81 MG TAB ONE (05:30)
[2018-12-16 05:45] LABS: ALT (SGPT) 15 U/L (8-55); AST (SGOT) 20 U/L (5-34); Albumin 3.5 g/dL (3.4-4.8); Alkaline Phosphatase 76 U/L (40-150); Anion Gap 13 mmol/L (10-20); BUN (Urea Nitrogen) 21 mg/dL (9.8-20.1); Bilirubin, Total 0.3 mg/dL (0.2-1.2); Calc. Creatinine Clearance 0 mL/min (70-130); Calcium 9.2 mg/dL (7.8-10.44); Carbon Dioxide 27 mmol/L (23-31); Chloride 99 mmol/L (98-107); Estimated GFR-MDRD 42; Globulin 3.7 g/dL (2.4-3.5); Glucose 153 mg/dL (83-110); Protein, Total 7.2 g/dL (6.0-8.3); Sodium 135 mmol/L (136-145)
[2018-12-16] MEDS ORDERED: Furosemide 40 MG/4 ML VIAL ONE (05:51)
[2018-12-16 05:52] LABS: #Eosinphils 0.4 thou/uL (0.0-0.7); #Lymphocytes 1.9 thou/uL (1.20-3.40); #Monocytes 1.2 thou/uL (0.11-0.59); #Neutrophils 7.6 thou/uL (1.40-6.50); %Basophils 0.1 % (0.0-1.0); %Eosinophils 3.7 % (0.0-10.0); %Monocytes 10.4 % (0.0-10.0); %Neutrophils 68.8 % (42.0-75.0)
[2018-12-16] MEDS ORDERED: Acetaminophen 325 MG TAB PO PRN ×2 (05:59→11:01)
[2018-12-16] MEDS ORDERED: Ondansetron ODT 4 MG TAB SL PRN (05:59)
[2018-12-16] MEDS ORDERED: Ondansetron PF 4 MG/2 ML Vial IVP PRN (05:59)
--- NOTE | 2018-12-16 07:17 | RAD ---
CHEST ONE VIEW: INDICATIONS: Insomnia. COMPARISON: 04/23/2018 FINDINGS: There is cardiomegaly, pulmonary vascular congestion, and perihilar interstitial air space opacity, s uspicious for edema. There are small bilateral pleural effusions. There is a dual-lead pacemaker ov erlying the left chest wall. No pneumothorax is evident. IMPRESSION: Findings suspicious for congestive heart failure. A component of pneumonia cannot be excluded. Curry mmend correlation with the clinical examination. POS: [facility]
[2018-12-16 07:50] VITALS: BMI 41.2
[2018-12-16 08:58] LABS: Troponin I 0.011 ng/mL (< 0.028)
[2018-12-16] MEDS ORDERED: Guaifenesin DM 100-10/5 ML UDCUP PO PRN (11:01)
[2018-12-16] MEDS ORDERED: Temazepam 15 MG CAP PO PRN (11:01)
[2018-12-16] MEDS ORDERED: Senokot S 8.6-50 MG TAB PO PRN (11:01)
[2018-12-16] MEDS ORDERED: Bisacodyl 10 MG SUPP PR PRN (11:01)
--- NOTE | 2018-12-16 12:04 | HP ---
REASON FOR ADMISSION: Fragmented sleep, mild shortness of breath, possible flare up of interstitial lung disease. HISTORY OF PRESENTING ILLNESS: The patient gives history of not being able to sleep from last 2 to 3 days. She has been having dry coughing spells and is taking the codeine syrup [id number] full, which was prescribed by her primary care doctor. None of this was really helping. Finally, last night, the patient could not sleep and she got concerned with her coughing spells. She wanted to check it out and woke her daughter to bring her to the emergency room. I did speak to the patient's daughter, Ms. Jael Moore, and confirmed her history. The patient says she has had bad cough and she is not able to bring up sputum. She states she is compliant with her CPAP at night and uses nasal cannula oxygen by 2 L 17/12. She says she ambulates by herself inside the house. Of late, has been getting more short of breath on minimal exertion. Per daughter, the patient does not ambulate much and she also takes multiple naps during the day and likely reason for her not to sleep at bedtime. She has a caregiver during the day. No complaints of chest pain or palpitation. No complaints of fever at home. PAST MEDICAL AND SURGICAL HISTORY: 1. History of interstitial lung disease, on home oxygen. 2. History of CHF with diastolic dysfunction. 3. Hypertension. 4. Hypothyroidism. 5. Dyslipidemia. 6. Chronic anemia, likely CKD stage 2. 7. History of sick-sinus syndrome with pacemaker placed in 2004. 8. Diabetes mellitus type 2. 9. GERD. 10. History of esophageal stricture requiring dilation. 11. Anxiety. 12. Depression. 13. Cholecystectomy. 14. Appendectomy. The patient is on Risperdal twice daily and it is unclear if she has underlying schizophrenia or psychosis. We will confirm the same shortly. CURRENT MEDICATIONS: The patient is on; 1. Norvasc 5 mg daily. 2. Lasix 40 mg twice daily. 3. Lantus 14 units subcu q.a.m. 4. Iron 27 mg daily. 5. Imdur extended release 30 mg daily. 6. Levothyroxine 75 mcg daily. 7. Lopressor 100 mg twice daily. 8. Risperdal 2 mg twice daily. 9. Zocor 10 mg daily. 10. Januvia 100 mg daily. 11. Temazepam 15 mg p.o. at bedtime p.r.n. for insomnia. 12. DuoNeb q.6 hourly p.r.n. 13. Potassium chloride 20 mEq p.o. q.a.m. ALLERGIES: FAMOTIDINE. PERSONAL HISTORY: Does not abuse alcohol or drugs. No history of smoking. FAMILY HISTORY: Mother at the age of 81 years. She had pneumonia at the end of her life. Father at the age of 90 from natural causes. CODE STATUS: Full. The patient's daughter, Ms. Jael Mooer, is the power of tax associate attorney. The number to reach her is [phone]. I did speak to Ms. Jael Moore, who is getting in touch with her brother, and they both will talk to the patient with regard to code status and let us know. For now, she is a full code. REVIEW OF SYSTEMS: CONSTITUTIONAL: Negative for weight loss or gain, ability to conduct usual activities. SKIN: Negative for rash, itching. EYES: Negative for double vision, pain. ENT/MOUTH: Negative for nose bleeding, neck stiffness, pain, tenderness. CARDIOVASCULAR: Negative for palpitations, dyspnea on exertion, orthopnea. RESPIRATORY: Negative for shortness of breath, wheezing, cough, hemoptysis, fever or night sweats. GASTROINTESTINAL: Negative for poor appetite, abdominal pain, heartburn, nausea, vomiting, constipation, or diarrhea. GENITOURINARY: Negative for urgency, frequency, dysuria, nocturia. MUSCULOSKELETAL: Negative for pain, swelling. NEUROLOGIC/PSYCHIATRIC: Negative for anxiety, depression. ALLERGY/IMMUNOLOGIC: Negative for skin rash, bleeding tendency. PHYSICAL EXAMINATION: GENERAL: The patient is an 83-year-old female, who is currently not in any acute distress. VITAL SIGNS: Blood pressure 104/84, pulse 80 per minute, respiratory rate 32 per minute, temperature 98.9 degrees Fahrenheit, saturating 92% on 2 L nasal cannula. NECK: Supple. No elevated JVD. HEENT: Eyes; extraocular muscles intact. Pupils reacting to light. Oral cavity; mucous membranes are dry. No exudates or congestion. CARDIOVASCULAR: S1, S2 heard. Regular rhythm. Scattered rhonchi plus. No wheezes. ABDOMEN: Soft. Bowel sounds heard. No tenderness, rigidity, or guarding. EXTREMITIES: No peripheral edema or calf tenderness. VASCULAR SYSTEM: Peripheral pulses 1+ bilateral. No ischemic ulcerations or gangrene. CENTRAL NERVOUS SYSTEM: No gross focal deficits noted. The patient is alert, awake, and oriented well. PSYCHIATRIC SYSTEM: The patient's mood is euthymic. No hallucinations or delusions. LABORATORY DATA: White count of 11, H and H are 10 and 33, platelet count 328, MCV is 87 with 68% neutrophils. Electrolytes stable. BUN 21, creatinine 1.4, serum glucose 153. Liver enzymes within normal limits. Albumin 3.5. BNP 198. Troponin x2 is negative. Chest x-ray done shows chronic lung changes with unclear if she has underlying infiltrate or congestion. EKG done shows normal sinus rhythm at 76 beats per minute. There is T-inversion seen in V2, V3, nonspecific ST-T wave changes, and low voltage. CLINICAL IMPRESSION AND PLAN: The patient will be admitted to telemetry for initial presentation of insomnia, generalized weakness, possible flare up of interstitial lung disease with chronic cough with current worsening from last month and a half now. The patient will be placed on Augmentin empirically and DuoNeb q.6 hourly. We will continue all her home medications including Lasix, Levemir, oral iron, Imdur, levothyroxine, metoprolol high dose twice daily, Risperdal home dose 2 mg twice daily, simvastatin, Januvia, and temazepam as before. I have spoken to Dr. Alexis for Pulmonology and Critical Care consultation. 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 and will continue oral Lasix as before. Job ID: [id number]
[2018-12-16] MEDS ORDERED: Metoprolol Tartrate 5 MG/5 ML VIAL IVP SCH (13:45)
[2018-12-16] MEDS ORDERED: Metoprolol Tartrate 50 MG TAB PO SCH (14:00)
--- NOTE | 2018-12-16 16:17 | CON ---
DATE OF CONSULTATION: 12/16/2018 SERVICE: Pulmonary Medicine. REASON FOR CONSULT: ILD. HISTORY OF PRESENT ILLNESS: The patient is an 83-year-old female with past medical history significant for interstitial lung disease. This has been stable for over 2 to 3 years clinically and spirometrically. Either way, the patient presented to the hospital basically because she had insomnia. That being said, because of her abnormal respiratory pattern, which is currently at her baseline, she was tucked into the ICU with a diagnosis of acute on chronic heart failure. She denies any change from her baseline breathing. She is coughing from time to time, but not worse than usual. It is worse at night and first thing in the morning. She continues to drink liquids late into the evening and all night long. She is following her reflux precautions and that she elevates the head of the bed, however. She denies any current fevers, chills, nausea, or vomiting. She is not coughing up anything of color. PAST MEDICAL HISTORY: 1. Interstitial lung disease. 2. Chronic hypoxic respiratory failure. 3. Chronic diastolic heart failure. 4. Hypertension. 5. Dyslipidemia. 6. Hypothyroidism. 7. Chronic kidney disease, stage 2. 8. Sick sinus syndrome. 9. Type 2 diabetes mellitus. 10. Gastroesophageal reflux disease. 11. History of esophageal stricture, status post dilation. 12. Major depressive disorder. 13. Major anxiety disorder. 14. Cholecystectomy. 15. Appendectomy. PAST SURGICAL HISTORY: Pacemaker placement. ALLERGIES: FAMOTIDINE. MEDICATIONS: List of her inpatient medications were reviewed. There are updates. I discontinued her benzodiazepine, and put her on trazodone and melatonin in the evening time. FAMILY HISTORY: Noncontributory. SOCIAL HISTORY: Negative for alcohol, tobacco, or illicit drug use. She is a lifelong nonsmoker. She has no exposure to chemicals, dust, asbestos, or tuberculosis. REVIEW OF SYSTEMS: General, head, ears, eyes, nose, throat, cardiovascular, respiratory, GI, , musculoskeletal, neurologic, and skin is negative except as mentioned in the HPI. PHYSICAL EXAMINATION: VITAL SIGNS: Afebrile, pulse 71, blood pressure 146/66, respirations 20, and saturation 91% on 4 L nasal cannula. GENERAL: The patient is awake and alert, in no apparent distress. LUNGS: Crackles are present. No prolonged expiratory phase or wheezing is present. HEART: Normal rate, regular. ABDOMEN: Soft, nontender, and nondistended. Bowel sounds are positive. MUSCULOSKELETAL: No cyanosis or clubbing. No pitting in bilateral lower extremities. NEUROLOGIC: Grossly nonfocal. LABORATORY DATA: WBC 11.1, hemoglobin 9.9, and platelets 328,000. Creatinine is 1.43, which is slightly above baseline of 1.1 to 1.2. Liver function studies are unremarkable. BNP 198, and historic high. Troponin is negative x2. IMAGING DATA: Chest x-ray demonstrates interstitial lung changes. There is likely some superimposed volume overload. ASSESSMENT: 1. Acute on chronic hypoxic respiratory failure. 2. Acute on chronic diastolic heart failure. 3. Interstitial lung disease, previously quiescent. 4. Insomnia. 5. Obstructive sleep apnea, moderate. DISCUSSION AND PLAN: The reason the patient came to the emergency department was because she had a hard time falling asleep going on for about 2 months. At this point, her respiratory status is at baseline. She is stable for transition out of the hospital. I am going to put her on trazodone and melatonin tonight. Benzodiazepine will be interrupted. From my perspective in the morning, she will be ready for discharge from the hospital. We will likely need to interrupt her benzodiazepine, indefinitely. If she responds well to these new sleep aids, we can consider continuing them in the outpatient setting. 70 minutes have been devoted to this patient in various activities. I personally reviewed all imaging studies and laboratory data noted within this document. For fifty percent of this time, I was interacting with the patient at the bedside or coordinating care with the care team. For the remainder of the time I was immediately available to the patient in the hospital unit. Job ID: [id number] MTDD
[2018-12-16] MEDS: risperiDONE 1 MG TAB PO SCH (20:34)
[2018-12-16] MEDS: Metoprolol Tartrate 50 MG TAB PO SCH (20:34)
[2018-12-16] MEDS: Amoxicillin/Potassium Clav 875 MG TAB PO SCH (20:34)
[2018-12-16] MEDS: Furosemide 40 MG TAB PO SCH (20:34)
[2018-12-16] MEDS ORDERED: Melatonin 3 MG TAB PO SCH (21:00)
[2018-12-16] MEDS ORDERED: Simvastatin 5 MG TAB PO SCH (21:00)
[2018-12-16] MEDS ORDERED: traZODone HCl 50 MG TAB PO SCH (21:00)
[2018-12-17 05:26] LABS: #Eosinphils 0.4 thou/uL (0.0-0.7); #Lymphocytes 1.9 thou/uL (1.20-3.40); #Monocytes 1.2 thou/uL (0.11-0.59); #Neutrophils 8.7 thou/uL (1.40-6.50); %Basophils 0.2 % (0.0-1.0); %Eosinophils 3.2 % (0.0-10.0); %Lymphocytes 15.6 % (21.0-51.0); %Monocytes 9.5 % (0.0-10.0); %Neutrophils 71.5 % (42.0-75.0); Hemoglobin 9.4 g/dL (12.0-16.0); Mean Corpuscular HGB CONC 29.5 g/dL (32.0-36.0); Mean Corpuscular Volume 88.1 fL (78.0-98.0); Mean Platelet Volume 7.2 fL (7.4-10.4); Platelet Count 312 thou/uL (130-400); RBC Distribution Width 12.5 % (11.5-14.5); Red Blood Cell (RBC) Count 3.61 mill/uL (4.20-5.40); White Blood Cell (WBC) Count 12.1 thou/uL (4.8-10.8)
[2018-12-17 05:43] LABS: Anion Gap 14 mmol/L (10-20); BUN (Urea Nitrogen) 22 mg/dL (9.8-20.1); Calc. Creatinine Clearance 47 mL/min (70-130); Calcium 9.2 mg/dL (7.8-10.44); Carbon Dioxide 28 mmol/L (23-31); Chloride 96 mmol/L (98-107); Estimated GFR-MDRD 45; Glucose 127 mg/dL (83-110); Potassium 4.1 mmol/L (3.5-5.1); Sodium 134 mmol/L (136-145)
[2018-12-17] MEDS ORDERED: Levothyroxine Sodium 75 MCG TAB PO SCH (06:00)
[2018-12-17] MEDS ORDERED: Potassium Chloride 20 MEQ TAB PO SCH (08:00)
[2018-12-17] MEDS ORDERED: PRE FILLED SC SCH (09:00)
[2018-12-17] MEDS ORDERED: INSULIN GLARGINE SC SCH (09:00)
[2018-12-17] MEDS ORDERED: Enoxaparin Sodium 40 MG/0.4 ML SYRINGE SC SCH (09:00)
[2018-12-17] MEDS ORDERED: Ferrous Gluconate 324 MG TAB PO SCH (09:00)
[2018-12-17] MEDS ORDERED: INSULIN GLARGINE HUM REC ANLOG 14 UNIT SQ SCH (09:00)
[2018-12-17] MEDS ORDERED: Alogliptin 25 MG TAB PO SCH (09:00)
[2018-12-17] MEDS ORDERED: Amlodipine 5 MG TAB PO SCH (09:00)
[2018-12-17] MEDS ORDERED: Insulin Glargine 11 UNITS in Pre-Filled Syringe 1 EACH SC SCH (09:00)
[2018-12-17] MEDS: risperiDONE 1 MG TAB PO SCH (09:24)
[2018-12-17] MEDS: Metoprolol Tartrate 50 MG TAB PO SCH (09:24)
[2018-12-17] MEDS: Amoxicillin/Potassium Clav 875 MG TAB PO SCH (09:25)
[2018-12-17] MEDS: Furosemide 40 MG TAB PO SCH (09:25)
[2018-12-17 11:37] VITALS: BP 108/69; TEMP 97.7
--- NOTE | 2018-12-17 12:08 | DIS ---
DATE OF ADMISSION: 12/16/2018 DATE OF DISCHARGE: 12/17/2018 FINAL DIAGNOSES: 1. Insomnia. 2. Generalized weakness. 3. Interstitial lung disease, on home oxygen. 4. History of congestive heart failure with diastolic dysfunction. 5. Hypertension. 6. Hypothyroidism. 7. Dyslipidemia. 8. Chronic anemia. 9. Diabetes mellitus, type 2. 10. History of sick sinus syndrome with pacemaker placed in 2004. 11. History of esophageal stricture, requiring dilatation. 12. Anxiety. 13. Depression. 14. History of cholecystectomy. FINANCE EXECUTIVE: Dr. Alexis, Pulmonary Service. HOSPITAL COURSE: The patient is an 83-year-old female, who was admitted to the hospital will inability to sleep for 2 to 3 days prior to this admission. She is on CPAP at night and uses nasal cannula oxygen 2 L 24 hours a day. She was seen in the emergency room. She was evaluated. Her white blood was 11,000, hemoglobin of 10. BUN of 21, creatinine 1.4. Her liver enzymes were within normal limits. BNP 198. Troponin I x2 negative. Chest x-ray showed chronic lung changes, but it is unclear. EKG showed a normal sinus rhythm with some T-wave inversion in lead V2 and V3 and nonspecific ST-T wave changes and low voltage. The patient was admitted to the telemetry floor for initial presentation of insomnia. She was started on Augmentin and DuoNeb q.6 hours. She was seen by drill press tender, who stopped her benzodiazepines and put her on trazodone and melatonin. She had good response from this new regimen as she slept last night. She wants to go home and continue her new regimen. Dr. Alexis saw the patient and he feels that she is at her baseline in terms of her pulmonary status and interstitial lung disease. He recommends to continue her O2 at home at 2 L by nasal cannula. Her vitals today, blood pressure is 122/68, pulse is 68, respirations 20, and O2 saturation is 91%. She is seen and examined before she is discharged. MEDICATIONS: At the time of discharge; 1. Trazodone 50 mg at bedtime. 2. Restoril is stopped. 3. She will continue her home medication, she was using prior to this hospitalization, which is;. a. Amlodipine 5 mg daily. b. Furosemide 40 mg twice a day. c. Iron 27 mg daily. d. Isosorbide mononitrate 30 mg daily. e. Levothyroxine 75 mcg daily. f. Melatonin 10 mg at bedtime. g. Metoprolol 100 mg twice a day. h. Potassium chloride 20 mEq daily. i. Risperdal 2 mg twice a day. j. Simvastatin 10 mg at bedtime. k. Januvia 100 mg once a day. 4. She will continue her nebulizers with DuoNeb. 5. She will continue her insulin Lantus, which is in the form of Toujeo SoloStar 14 units every morning. FOLLOWUP: She will follow up with her primary care physician in 1 week. DIET: She will stay on heart healthy diet. ACTIVITY: As tolerated. TIME SPENT: Discharge time is less than 30 minutes. Job ID: [id number]
--- NOTE | 2018-12-17 14:47 | PRG ---
DATE OF SERVICE: 12/17/2018 SERVICE: Pulmonary Service. INTERVAL HISTORY: With a combination of the melatonin and the trazodone, the patient had a fantastic night of sleep. She used her CPAP for 9-1/2 hours. She indicates that she was out of the world for the entire evening. She woke up feeling more refreshed, and is almost giddy. She denies any current fevers or chills. Cough is at baseline. She does not endorse any shortness of breath beyond baseline. She is actually quite interested in going home today and is looking forward to dismissal. PHYSICAL EXAMINATION: VITAL SIGNS: Afebrile, pulse 59, blood pressure 108/69, respirations 20, and saturation 92% on 4 L nasal cannula. GENERAL: The patient is awake and alert, in no apparent distress. LUNGS: Very good air entry. No prolonged expiratory phase or wheezing is appreciated. She has some crackles present. HEART: Normal rate, regular. ABDOMEN: Soft, nontender, and nondistended. Bowel sounds positive. MUSCULOSKELETAL: No cyanosis or clubbing. No pitting in the bilateral lower extremities. : No Aguero. NEUROLOGIC: Nonfocal. LABORATORY DATA: WBC 12.1, hemoglobin 9.4, and platelets 312,000. Creatinine 1.35, gently downtrending. Basic metabolic profile is otherwise unremarkable. Her bicarb is 24, anion gap falls within normal limits. ASSESSMENT: 1. Acute on chronic hypoxic respiratory failure, resolved to baseline. 2. Acute on chronic diastolic heart failure, minimal. 3. Obstructive sleep apnea, moderate, but well controlled on CPAP therapy. 4. Interstitial lung disease, quiescent. 5. Insomnia, resolved. DISCUSSION AND PLAN: Restoril should be interrupted long-term. The patient should go out on a low-dose of melatonin, and trazodone in the evening time. I will have her return to clinic as previously directed to follow up with me in the outpatient setting. She can return to clinic sooner if clinically indicated. Job ID: [id number]
== END 2018-12-17 12:09 | disposition home or self-care (01) | DRG 196 ==
LOC: ERS 04:40 → 2SE 05:59
PROVIDERS: ADMIT Hospitalist; ATTEND Hospitalist
DX: J84.9 Interstitial pulmonary disease, unspecified (principal); J96.21 Acute and chronic respiratory failure with hypoxia; I50.33 Acute on chronic diastolic (congestive) heart failure; I13.0 Hypertensive heart and chronic kidney disease with heart failure and stage 1 through stage 4 chronic kidney disease, or unspecified chronic kidney disease; G47.00 Insomnia, unspecified; R53.1 Weakness; E03.9 Hypothyroidism, unspecified; D64.9 Anemia, unspecified; I49.5 Sick sinus syndrome; N18.2 Chronic kidney disease, stage 2 (mild); D63.1 Anemia in chronic kidney disease; K21.9 Gastro-esophageal reflux disease without esophagitis; F41.9 Anxiety disorder, unspecified; F32.9 Major depressive disorder, single episode, unspecified; E11.22 Type 2 diabetes mellitus with diabetic chronic kidney disease; Z79.4 Long term (current) use of insulin; Z95.0 Presence of cardiac pacemaker; Z90.49 Acquired absence of other specified parts of digestive tract; Z88.8 Allergy status to other drugs, medicaments and biological substances
CPT/HCPCS: 36415; 36416; 71045; 80048; 80053; 83880; 84484; 85025; 93005; 94640; 96374; J1650; J1815; J1940; J7620

== ENCOUNTER 2019-02-13 11:52 | Inpatient (IN) | payer MEDICARE, MEDICAID ==
[2019-02-13] MEDS ORDERED: ISOVUE-370 76%-LOCM 1 ML ONE (12:00)
--- NOTE | 2019-02-13 12:48 | RAD ---
EXAM: Single view of the chest HISTORY: Cough COMPARISON: 12/16/2018 FINDINGS: Single view of the chest shows an enlarged but stable cardiomediastinal silhouette. The pa cemaker is unchanged in position. Increased interstitial markings are stable. There is no evidence of consolidation, mass, or pleural effusion. The bones are unremarkable. IMPRESSION: Cardiomegaly without evidence of acute cardiopulmonary disease
[2019-02-13 12:53] LABS: #Eosinphils 0.5 thou/uL (0.0-0.7); #Monocytes 1.2 thou/uL (0.11-0.59); #Neutrophils 10.2 thou/uL (1.40-6.50); %Eosinophils 3.6 % (0.0-10.0); %Lymphocytes 7.9 % (21.0-51.0); %Monocytes 8.9 % (0.0-10.0); %Neutrophils 79.5 % (42.0-75.0); Hemoglobin 9.6 g/dL (12.0-16.0); Mean Corpuscular HGB CONC 30.5 g/dL (32.0-36.0); Mean Corpuscular Hemoglobin 26.9 pg (27.0-31.0); Mean Corpuscular Volume 88.2 fL (78.0-98.0); Mean Platelet Volume 7.8 fL (7.4-10.4); Platelet Count 332 thou/uL (130-400); RBC Distribution Width 13.4 % (11.5-14.5); Red Blood Cell (RBC) Count 3.55 mill/uL (4.20-5.40); White Blood Cell (WBC) Count 12.9 thou/uL (4.8-10.8)
[2019-02-13 13:06] LABS: ALT (SGPT) 9 U/L (8-55); AST (SGOT) 18 U/L (5-34); Albumin 3.4 g/dL (3.4-4.8); Alkaline Phosphatase 73 U/L (40-150); Anion Gap 11 mmol/L (10-20); BUN (Urea Nitrogen) 16 mg/dL (9.8-20.1); Bilirubin, Total 0.3 mg/dL (0.2-1.2); Calc. Creatinine Clearance 0 mL/min (70-130); Calcium 9.3 mg/dL (7.8-10.44); Carbon Dioxide 30 mmol/L (23-31); Chloride 96 mmol/L (98-107); Estimated GFR-MDRD 39; Globulin 4.3 g/dL (2.4-3.5); Glucose 163 mg/dL (83-110); Potassium 3.9 mmol/L (3.5-5.1); Protein, Total 7.7 g/dL (6.0-8.3); Sodium 133 mmol/L (136-145)
--- NOTE | 2019-02-13 13:35 | CT ---
EXAM: CTA of the chest HISTORY: Dyspnea COMPARISON: 08/26/2016 TECHNIQUE: Multiple contiguous axial images were obtained a CTA of the chest with contrast per pulmon jaylin embolism protocol. 3-D oblique MIP reformats and direct coronal reformats were performed. FINDINGS: HEART: Increased in size without focal cardiac abnormality. PULMONARY ARTERIES: Normal in caliber without filling defects to suggest pulmonary emboli. MEDIASTINUM: No hilar or mediastinal lymphadenopathy. LUNGS: Increased interstitial lung markings are seen. Atelectasis is seen in both lung bases. A bulla is seen in the right middle lobe. PLEURAL SPACE: No pleural effusion or pneumothorax. CHEST WALL SOFT TISSUES: Unremarkable VISUALIZED OSSEOUS STRUCTURES: Unremarkable VISUALIZED SUBDIAPHRAGMATIC STRUCTURES: Unremarkable IMPRESSION: 1. No evidence of pulmonary thromboembolism 2. Global cardiomegaly. Increased interstitial markings may represent interstitial lung disease or in terstitial edema.
[2019-02-13] MEDS ORDERED: Furosemide 100 MG/10 ML VIAL ONE (13:41)
[2019-02-13 15:32] LABS: Bacteria/HPF 3+ HPF (None Seen); Bilirubin Negative (Negative); Blood, Urine 2+ (Negative); Clarity Turbid (Clear); Glucose, Urine (Dipstick) Normal (Negative); Leukocyte 500 Leu/uL (Negative); Nitrite 2+ (Negative); Protein, Urine (Dipstick) Negative (Neg-Trace); RBC/HPF 0-3 HPF (0-3); Squamous Epithelial 0-3 HPF (0-3); Urobilinogen Normal mg/dL (Less than 2)
[2019-02-13] MEDS ORDERED: cefTRIAXone\\ROCEPHIN 2 GM VIAL ONE (15:43)
[2019-02-13 16:33] LABS: Troponin I Less than 0.010 ng/mL (< 0.028)
--- NOTE | 2019-02-13 16:44 | PDOC.HHP ---
Hospitalist HPI - History of Present Illness "I feel bad" History of Present Illness: THis is an 84 year old male with past medical history of schizophrenia, diabetes, hypertension, CHF, hypothyroidism who presented to the ER after feeling "bad all week." THe patient's cocoa bean roaster noticed altered mental status and called EMS, however encephalopathy resolved upon EMS arrival. Saturations were reportedly in the 70's and patient was placed on a non-rebreather. The patient states that she has been having an excessive dry cough, shortness of breath on exertion after walking ten feet and has been sleeping on 3-4 pillows. She has been compliant with her lasix 40 mg twice daily, however she drinks 3 big bottles of water a day plus one small can of soda daily. She does not eat excessive amounts of salt. She denies leg swelling. She is not sure whether she has orthopnea or PND. The patient denies fevers, chills, runny nose, sore throat. She complains of nausea for the past one week. She denies abdominal pain but has chronic constipation. ED Course: In the ER, the patient was noted to have BP of 114/71, HR 73, RR 24, O2 sat 88 % on room air. Chest X ray showed no acute disease, but CTA showed pulmonary edema with no PE. SHe was given 80 mg IV lasix and subsequently oxygen requirement came down to 3L nasal cannula which is the patient's baseline. EKG showed atrial paced rhythm with chronic T wave inversions in anterolateral leads , troponin was negative. Patient was admitted for further workup. Hospitalist ROS - Review of Systems Constitutional: denies: fever, sweats Eyes: denies: vision change ENT: denies: ear pain Respiratory: reports: cough, dry, shortness of breath, SOB with excertion Cardiovascular: denies: chest pain, palpitations, orthopnea, paroxysmal noc. dyspnea, edema Gastrointestinal: reports: nausea, constipation. denies: vomiting, abdominal pain, diarrhea Genitourinary: denies: dysuria, frequency, retention Musculoskeletal: denies: arm pain, back pain Skin: denies: rash, lesions Neurological: denies: weakness, numbness Hospitalist History - Past Medical History Cardiac: reports: CHF Gastrointestinal: reports: Constipation Heme/Onc: reports: Iron deficiency anemia Hepatobiliary: reports: no pertinent history Psych: reports: Schizophrenia Musculoskeletal: reports: no pertinent history Rheumatologic: reports: no pertinent history Infectious Disease: reports: no pertinent history ENT: reports: no pertinent history Renal/: reports: no pertinent history Endocrine: reports: Diabetes Dermatology: reports: no pertinent history - Past Surgical History Past Surgical History: reports: Appendectomy, Cholecystectomy - Social History Smoking Status: Former smoker (Smoked from the age of 21 to the age of 72, 1 pack a day) Alcohol: reports: Occassional (occasional beer) Drugs: reports: none Living Situation: With Family Domestic Violence: Negative - Exam General Appearance: awake alert General - other findings: Obese, on 3L oxygen (baseline) Eye: PERRL, anicteric sclera ENT: normocephalic atraumatic, no oropharyngeal lesions Neck: JVD Heart: RRR, no murmur, no gallops, no rubs Respiratory: CTAB, no wheezes, rales (noted at the bases) Gastrointestinal: soft, non-tender, non-distended Extremities: no cyanosis, no clubbing, no edema Skin: normal turgor, no lesions Neurological: cranial nerve grossly intact, normal sensation to touch, no weakness, no new deficit Musculoskeletal: normal tone, normal strength, no muscle wasting Psychiatric: normal affect, normal behavior, A&O x 3 Hospitalist Results - Labs Result Diagrams: 02/13/19 12:42 02/13/19 12:32 Lab results: WBC 12.9 thou/uL (4.8-10.8) H 02/13/19 12:42 Hgb 9.6 g/dL (12.0-16.0) L 02/13/19 12:42 Hct 31.3 % (36.0-47.0) L 02/13/19 12:42 MCV 88.2 fL (78.0-98.0) 02/13/19 12:42 Plt Count 332 thou/uL (130-400) 02/13/19 12:42 Neutrophils % 79.5 % (42.0-75.0) H 02/13/19 12:42 Sodium 133 mmol/L (136-145) L 02/13/19 12:32 Potassium 3.9 mmol/L (3.5-5.1) 02/13/19 12:32 Chloride 96 mmol/L (98-107) L 02/13/19 12:32 Carbon Dioxide 30 mmol/L (23-31) 02/13/19 12:32 BUN 16 mg/dL (9.8-20.1) 02/13/19 12:32 Creatinine 1.53 mg/dL (0.6-1.1) H 02/13/19 12:32 Glucose 163 mg/dL (83-110) H 02/13/19 12:32 Lactic Acid 1.9 mmol/L (0.5-2.2) 02/13/19 12:32 Calcium 9.3 mg/dL (7.8-10.44) 02/13/19 12:32 Total Bilirubin 0.3 mg/dL (0.2-1.2) 02/13/19 12:32 AST 18 U/L (5-34) 02/13/19 12:32 ALT 9 U/L (8-55) 02/13/19 12:32 Alkaline Phosphatase 73 U/L (40-150) 02/13/19 12:32 Troponin I Less than 0.010 ng/mL (< 0.028) 02/13/19 15:54 B-Natriuretic Peptide 151.4 pg/mL (0-100) H 02/13/19 12:33 Serum Total Protein 7.7 g/dL (6.0-8.3) 02/13/19 12:32 Albumin 3.4 g/dL (3.4-4.8) 02/13/19 12:32 Urine Ketones Negative mg/dL (Negative) 02/13/19 13:35 Urine Blood 2+ (Negative) A 02/13/19 13:35 Urine Nitrite 2+ (Negative) A 02/13/19 13:35 Ur Leukocyte Esterase 500 Lesa/uL (Negative) A 02/13/19 13:35 Urine RBC 0-3 HPF (0-3) 02/13/19 13:35 Urine WBC 4-6 HPF (0-3) A 02/13/19 13:35 Ur Squamous Epith Cells 0-3 HPF (0-3) 02/13/19 13:35 Urine Bacteria 3+ HPF (None Seen) A 02/13/19 13:35 - EKG Interpretation EKG: atrial paced rhythm, right axis deviation. T wave inversions in V2-V6 - Radiology Interpretation Chest x-ray Status: other Additional Comment: No acute disease CT scan - chest Status: report reviewed by me Additional Comment: no PE, cardiomegaly and pulmonary edema Hospitalist H&P A/P - Plan Plan: This is an 84 year old male with past medical history of CHF, diabetes, hypertension, hypothyroidism, schizophrenia who presented to the ER with altered mental status which resolved with EMS arrival, found to be hypoxic and in pulmonary edema, admitted for CHF exacerbation Acute hypoxic respiratory failure secondary to acute diastolic CHF - patient had hypoxia in the 70's and was on a non-rebreather. CTA showed pulmonary edema, s/p lasix 80 mg IV x 1. Patient now down to 3L nasal cannula - monitor on telemetry, send two more sets of troponins, strict I and O - recheck BMP 6 pm, likely give another IV dose of lasix tonight - continue metoprolol and imdur Type II diabetes - fingersticks achs, will order insulin sliding scale. Continue lantus but will do lower dose 7 units for now - hold januvia for now Hypothyroidism - continue levothyroxine 75 mcg Schizophrenia - continue risperidone 2 mg bid, trazodone Iron deficiency anemia - continue iron supplementation Hyperlipidemia - continue statin Hypertension - controlled - continue metoprolol and imdur, may need dose adjustment if lasix makes BP soft Code status: full code
[2019-02-13] MEDS ORDERED: Ondansetron ODT 4 MG TAB PO PRN (17:05)
[2019-02-13] MEDS ORDERED: PROVENTIL INHALER 6.7 G (200 INHALATIONS) INH PRN (17:11)
[2019-02-13] MEDS ORDERED: Acetaminophen 325 MG TAB PO PRN (17:11)
[2019-02-13 17:49] VITALS: BMI 39.7
[2019-02-13 19:38] LABS: Anion Gap 12 mmol/L (10-20); BUN (Urea Nitrogen) 16 mg/dL (9.8-20.1); Calc. Creatinine Clearance 38 mL/min (70-130); Calcium 9.4 mg/dL (7.8-10.44); Carbon Dioxide 31 mmol/L (23-31); Chloride 95 mmol/L (98-107); Estimated GFR-MDRD 37; Glucose 187 mg/dL (83-110); Sodium 134 mmol/L (136-145)
[2019-02-13 19:44] LABS: Troponin I Less than 0.010 ng/mL (< 0.028)
[2019-02-13] MEDS ORDERED: Furosemide 40 MG/4 ML VIAL SLOW IVP SCH (20:00)
[2019-02-13] MEDS: risperiDONE 1 MG TAB PO SCH (22:10)
[2019-02-13] MEDS: Metoprolol Tartrate 100 MG TAB PO SCH (22:10)
[2019-02-13] MEDS: Melatonin 3 MG TAB PO SCH (22:10)
[2019-02-13] MEDS: traZODone HCl 50 MG TAB PO SCH (22:10)
[2019-02-13] MEDS: Heparin 5,000 UNITS/ML VIAL SC SCH (22:10)
[2019-02-14 04:55] LABS: Hypochromia SLIGHT = 6-15 cells (100X) (0-5/hpf); Lymphocytes 6 % (21-51); MDiff Complete? YES; Mean Corpuscular HGB CONC 30.1 g/dL (32.0-36.0); Mean Corpuscular Hemoglobin 26.9 pg (27.0-31.0); Mean Corpuscular Volume 89.4 fL (78.0-98.0); Mean Platelet Volume 7.8 fL (7.4-10.4); Monocytes 6 % (0-10); Neutrophil 88 % (42-75); Platelet Count 339 thou/uL (130-400); Platelet Morphology Comment Appears Adequate; RBC Distribution Width 13.4 % (11.5-14.5); Red Blood Cell (RBC) Count 3.34 mill/uL (4.20-5.40); White Blood Cell (WBC) Count 13.1 thou/uL (4.8-10.8)
[2019-02-14 05:02] LABS: Anion Gap 14 mmol/L (10-20); BUN (Urea Nitrogen) 20 mg/dL (9.8-20.1); Calc. Creatinine Clearance 36 mL/min (70-130); Calcium 9.3 mg/dL (7.8-10.44); Carbon Dioxide 28 mmol/L (23-31); Chloride 99 mmol/L (98-107); Estimated GFR-MDRD 35; Glucose 121 mg/dL (83-110); Potassium 4.3 mmol/L (3.5-5.1); Sodium 137 mmol/L (136-145)
[2019-02-14] MEDS: Levothyroxine Sodium 75 MCG TAB PO SCH (05:59)
[2019-02-14] MEDS: Ferrous Sulfate 325 MG TAB PO SCH (10:06)
[2019-02-14] MEDS: Isosorbide Mononitrate (ER) 30 MG TAB PO SCH (10:07)
[2019-02-14] MEDS: risperiDONE 1 MG TAB PO SCH ×2 (10:07→22:20)
[2019-02-14] MEDS: Simvastatin 20 MG TAB PO SCH (10:07)
[2019-02-14] MEDS: Amlodipine 5 MG TAB PO SCH (10:08)
[2019-02-14] MEDS: Heparin 5,000 UNITS/ML VIAL SC SCH ×3 (10:08→22:13)
[2019-02-14] MEDS: Metoprolol Tartrate 100 MG TAB PO SCH ×2 (10:08→22:15)
[2019-02-14] MEDS: Insulin Glargine 7 UNITS in Pre-Filled Syringe SC SCH (10:09)
--- NOTE | 2019-02-14 13:43 | PDOC.HOSPP ---
- Subjective Encounter Date: 02/14/19 Encounter Time: 08:00 Subjective: Pt seen for followup re: CHF exacerbation. States she feels better. - Objective Vital Signs & Weight: Vital Signs (12 hours) Temp Pulse Resp BP Pulse Ox 02/14/19 11:51 97.6 F 67 18 119/63 95 02/14/19 10:08 64 02/14/19 08:00 98.2 F 64 20 118/63 96 02/14/19 04:00 98.5 F 65 18 111/63 96 Weight Admit Weight 203 lb 11.2 oz Weight 203 lb 11.2 oz I&O: 02/13/19 02/14/19 02/15/19 06:59 06:59 06:59 Intake Total 700 Balance 700 Result Diagrams: 02/14/19 04:31 02/14/19 04:31 Additional Labs: Accuchecks 02/14/19 02/14/19 10:58 05:33 POC Glucose 190 H 139 H Labs and MARs reviewed by me EKG Reviewed by me: Yes (Tele: NSR) Hospitalist ROS - Review of Systems Cardiovascular: denies: chest pain, palpitations, orthopnea, paroxysmal noc. dyspnea, edema, light headedness Gastrointestinal: denies: nausea, vomiting, abdominal pain, diarrhea, constipation, melena, hematochezia - Medication Medications: Active Medications Generic Name Dose Route Start Last Admin Trade Name Freq PRN Reason Stop Dose Admin Amlodipine Besylate 5 mg 02/14/19 09:00 02/14/19 10:08 Norvasc PO 5 mg DAILY LAYTON Administration Ferrous Sulfate 325 mg 02/14/19 09:00 02/14/19 10:06 Feosol PO 325 mg DAILY LAYTON Administration Heparin Sodium (Porcine) 5,000 units 02/13/19 21:00 02/14/19 10:08 Heparin SC 5,000 units TID LAYTON Administration Insulin Glargine 7 units/ 0.07 mls @ 0 mls/hr 02/14/19 09:00 02/14/19 10:09 Miscellaneous Medication SC 0.07 mls QAM LAYTON Administration Isosorbide Mononitrate 30 mg 02/14/19 09:00 02/14/19 10:07 Imdur Er PO 30 mg DAILY LAYTON Administration Levothyroxine Sodium 75 mcg 02/14/19 06:00 02/14/19 05:59 Synthroid PO 75 mcg 0600 LAYTON Administration Melatonin 3 mg 02/13/19 21:00 02/13/19 22:10 Melatonin PO 3 mg HS LAYTON Administration Metoprolol Tartrate 100 mg 02/13/19 21:00 02/14/19 10:08 Lopressor PO 100 mg BID LAYTON Administration Risperidone 2 mg 02/13/19 21:00 02/14/19 10:07 Risperidone PO 2 mg BID LAYTON Administration Simvastatin 10 mg 02/14/19 09:00 02/14/19 10:07 Zocor PO 10 mg DAILY LAYTON Administration Trazodone HCl 50 mg 02/13/19 21:00 02/13/19 22:10 Desyrel PO 50 mg HS LAYTON Administration - Exam General - other findings: Obese Eye: anicteric sclera ENT: moist mucosa Neck: supple, JVD Heart: RRR, no rubs Respiratory - other findings: Al crackles Gastrointestinal: soft, non-tender Extremities: 1+ LE edema Neurological: no weakness Psychiatric: normal affect, normal behavior Hosp A/P (1) Acute on chronic diastolic CHF (congestive heart failure), NYHA class 3 Code(s): I50.33 - ACUTE ON CHRONIC DIASTOLIC (CONGESTIVE) HEART FAILURE Status : Acute (2) UTI (urinary tract infection) Status: Acute (3) Diabetes type 2, controlled Code(s): E11.9 - TYPE 2 DIABETES MELLITUS WITHOUT COMPLICATIONS Status: Chronic (4) Dyslipidemia Code(s): E78.5 - HYPERLIPIDEMIA, UNSPECIFIED Status: Chronic (5) Hypertension Code(s): I10 - ESSENTIAL (PRIMARY) HYPERTENSION Status: Chronic (6) Hypothyroidism Code(s): E03.9 - HYPOTHYROIDISM, UNSPECIFIED Status: Chronic (7) Obesity (BMI 30-39.9) Code(s): E66.9 - OBESITY, UNSPECIFIED Status: Chronic (8) Acute on chronic respiratory failure with hypoxia Code(s): J96.21 - ACUTE AND CHRONIC RESPIRATORY FAILURE WITH HYPOXIA Status: Resolved - Plan Continue IV furosemide. Pt clinically improved. Start ceftriaxone, follow urine culture. Start insulin sliding scale. Continue statin. Monitor vital signs, titrate antihypertensives as needed. Continue synthroid.
[2019-02-14] MEDS ORDERED: Dextrose 5% in Water 1,000 ML IV PRN (13:48)
[2019-02-14] MEDS ORDERED: Dextrose 50% Abboject 50 ML SYRINGE SLOW IVP PRN (13:48)
[2019-02-14] MEDS: cefTRIAXone\\ROCEPHIN 1 GM in Sodium Chloride 0.9% 100 ML IVPB SCH (15:07)
[2019-02-14] MEDS: Furosemide 40 MG/4 ML VIAL SLOW IVP SCH (15:09)
[2019-02-14] MEDS: HumaLOG 300 UNITS/3 ML VIAL SC PRN (17:35)
[2019-02-14] MEDS ORDERED: Vancomycin HCl 1 GM in Premix Bag 1 BAG IVPB SCH (20:00)
[2019-02-14] MEDS: Melatonin 3 MG TAB PO SCH (22:15)
[2019-02-14] MEDS: traZODone HCl 50 MG TAB PO SCH (22:20)
[2019-02-15] MEDS: Levothyroxine Sodium 75 MCG TAB PO SCH (06:08)
[2019-02-15] MEDS: Furosemide 40 MG/4 ML VIAL SLOW IVP SCH ×2 (06:08→14:24)
[2019-02-15] MEDS: risperiDONE 1 MG TAB PO SCH (10:02)
[2019-02-15] MEDS: Isosorbide Mononitrate (ER) 30 MG TAB PO SCH (10:03)
[2019-02-15] MEDS: Ferrous Sulfate 325 MG TAB PO SCH (10:03)
[2019-02-15] MEDS: Amlodipine 5 MG TAB PO SCH (10:03)
[2019-02-15] MEDS: Heparin 5,000 UNITS/ML VIAL SC SCH ×2 (10:04→14:24)
[2019-02-15] MEDS: Simvastatin 20 MG TAB PO SCH (10:04)
[2019-02-15] MEDS: Metoprolol Tartrate 100 MG TAB PO SCH (10:04)
[2019-02-15] MEDS: Insulin Glargine 7 UNITS in Pre-Filled Syringe SC SCH (10:05)
[2019-02-15] MEDS: HumaLOG 300 UNITS/3 ML VIAL SC PRN (12:36)
[2019-02-15 15:46] VITALS: BP 113/58; TEMP 99.8
[2019-02-15] MEDS: cefTRIAXone\\ROCEPHIN 1 GM in Sodium Chloride 0.9% 100 ML IVPB SCH (15:48)
--- NOTE | 2019-02-15 17:13 | DIS ---
DATE OF ADMISSION: 02/13/2019 DATE OF DISCHARGE: 02/15/2019 PRIMARY CARE PROVIDER: Dr. Brian Tavarez. DISCHARGE DIAGNOSES: 1. Acute on chronic diastolic congestive heart failure, NYHA class III. 2. Urinary tract infection with Escherichia coli. CONDITION OF PATIENT ON THE DAY OF DISCHARGE: Stable. I assessed Ms. Velasco on the day of discharge. She denies any chest pain or shortness of breath. Oxygen saturations are in the mid 90s on 3 L of oxygen, which is how she uses her home oxygen. S1 and S2 are heard, regular. Lungs are clear to auscultation bilaterally. FOLLOWUP APPOINTMENTS: The patient is advised to follow up with primary care provider in 3 to 5 days' time. She is advised to discuss the result of 2D echocardiogram as well as final blood culture results at that time. DISCHARGE MEDICATIONS: She has been started on nitrofurantoin 100 mg 2 times a day for 1 week. Otherwise, no change was made to her pre-admission home medications, which include; 1. Clonidine 0.1 mg every 2 hours as needed. 2. Amlodipine 5 mg daily. 3. Lasix 40 mg b.i.d. 4. Iron 65 mg daily. 5. Isosorbide mononitrate 30 mg daily. 6. Levothyroxine 75 mcg daily. 7. Lopressor 100 mg 2 times a day. 8. Risperidone 2 mg 2 times a day. 9. Zocor 10 mg daily. 10. Januvia 100 mg daily. 11. Potassium chloride 20 mEq daily. 12. Trazodone 50 mg at bedtime. HOSPITAL COURSE: Ms. Velasco is a pleasant 84-year-old lady, who was admitted to [facility] on February 13, 2019 for congestive heart failure exacerbation. Please refer to Dr. Maxwell's history and physical note dated February 13, 2019 for further details. She improved with intravenous diuretics. She also had urine cultures, which grew Escherichia coli, resistant to ampicillin, intermediate sensitivity to levofloxacin and resistant to Bactrim, sensitive to amikacin, cefepime, cefoxitin, ceftazidime, ceftriaxone, ciprofloxacin, gentamicin, meropenem, nitrofurantoin, Zosyn and tobramycin. She is being received ceftriaxone in the hospital. She is being stepped down to nitrofurantoin at the time of discharge. She had a 2D echocardiogram done during this hospitalization. At the time of this dictation, the report is pending. She is advised to follow up with primary care provider for the 2D echocardiogram report. One out of two blood cultures grew presumptive micrococcus species, presumed to be contaminant. She is advised to follow up with primary care provider for final blood culture result. Many thanks for allowing me to participate in your patient's care. Please feel free to contact me with any questions or concerns. DISCHARGE DESTINATION: Home. TIME SPENT: Total amount of time spent coordinating this discharge: 32 minutes. Job ID: [id number]
--- NOTE | 2019-02-16 12:39 | DIS ---
DATE OF ADMISSION: 02/13/2019 DATE OF DISCHARGE: 02/15/2019 ADDENDUM: Ms. Velasco' 2D echocardiogram report is available at the time of this dictation. Left ventricular ejection fraction was estimated at 50% to 55%. She had E/A flow reversal suggestive of diastolic dysfunction. The pacer wire was visualized in the right ventricle. She had normal-sized right ventricular cavity. Left atrium was moderately dilated. She had mildly enlarged right atrium size, trace mitral regurgitation, somewhat thickened aortic valve leaflets, and mild tricuspid regurgitation. She is also advised to follow up with her straight cutter machine, Dr. Lopez, in 2 to 3 weeks. Job ID: [id number]
== END 2019-02-15 19:47 | disposition home or self-care (01) | DRG 291 ==
LOC: ERS 11:52 → 2NO 17:04
PROVIDERS: ADMIT Internal Medicine; ATTEND Internal Medicine
DX: I11.0 Hypertensive heart disease with heart failure (principal); J96.21 Acute and chronic respiratory failure with hypoxia; N39.0 Urinary tract infection, site not specified; I50.33 Acute on chronic diastolic (congestive) heart failure; F20.9 Schizophrenia, unspecified; E11.9 Type 2 diabetes mellitus without complications; D50.9 Iron deficiency anemia, unspecified; E03.9 Hypothyroidism, unspecified; B96.20 Unspecified Escherichia coli [E. coli] as the cause of diseases classified elsewhere; F32.9 Major depressive disorder, single episode, unspecified; E66.9 Obesity, unspecified; Z16.11 Resistance to penicillins; Z16.24 Resistance to multiple antibiotics; Z99.81 Dependence on supplemental oxygen; Z87.891 Personal history of nicotine dependence; Z90.49 Acquired absence of other specified parts of digestive tract; Z95.0 Presence of cardiac pacemaker; Z88.8 Allergy status to other drugs, medicaments and biological substances; Z79.84 Long term (current) use of oral hypoglycemic drugs; Z79.899 Other long term (current) drug therapy; Z68.39 Body mass index [BMI] 39.0-39.9, adult; K59.09 Other constipation
CPT/HCPCS: 36415; 36416; 71045; 71275; 80048; 80053; 81003; 81015; 83605; 83735; 83880; 84484; 85007; 85025; 85027; 87040; 87077; 87086; 87149; 87186; 87324; 87449; 93005; 93306; 93798; 94760; 96365; 96375; J0696; J1644; J1815; J1940; J3490; Q9966

== ENCOUNTER 2019-02-24 23:03 | Inpatient (IN) | payer MEDICARE, MEDICAID ==
[2019-02-24] MEDS ORDERED: Furosemide 40 MG/4 ML VIAL ONE (23:31)
[2019-02-24 23:48] LABS: Hemoglobin 9.6 g/dL (12.0-16.0); Mean Corpuscular HGB CONC 30.2 g/dL (32.0-36.0); Mean Corpuscular Hemoglobin 26.6 pg (27.0-31.0); Mean Corpuscular Volume 87.9 fL (78.0-98.0); Mean Platelet Volume 7.9 fL (7.4-10.4); Platelet Count 380 thou/uL (130-400); Red Blood Cell (RBC) Count 3.63 mill/uL (4.20-5.40); White Blood Cell (WBC) Count 32.3 thou/uL (4.8-10.8)
--- NOTE | 2019-02-24 23:58 | RAD ---
RADIOGRAPH CHEST 1 VIEW: DATE: 02/24/2019 TIME: 11:20 PM HISTORY: 84-year-old female with dyspnea and hypoxemia COMPARISON: 02/13/2019 FINDINGS: There is cardiomegaly. There is a dual-lead left subclavian pacemaker. There are diffuse severe bilat eral interstitial infiltrates. No pneumothorax. No interval change overall. Review of previous chest CTs demonstrate chronic interstitial lung disease. IMPRESSION: 1. Chronic interstitial lung disease. 2. It is uncertain whether or not there is acute pulmonary edema superimposed on the chronic intersti tial lung disease, such as with congestive heart failure. 3. Cardiomegaly. 4. Pacemaker. 5. No interval change since 02/13/2019.
[2019-02-25 00:04] LABS: Band 3 % (5-11); Eosinophils 4 % (0-10); MDiff Complete? YES; Monocytes 6 % (0-10); Neutrophil 87 % (42-75)
[2019-02-25 01:40] LABS: ALT (SGPT) 7 U/L (8-55); AST (SGOT) 16 U/L (5-34); Albumin 3.5 g/dL (3.4-4.8); Alkaline Phosphatase 74 U/L (40-110); Anion Gap 17 mmol/L (10-20); BUN (Urea Nitrogen) 35 mg/dL (9.8-20.1); Bilirubin, Total 0.5 mg/dL (0.2-1.2); Calc. Creatinine Clearance 0 mL/min (70-130); Calcium 9.3 mg/dL (7.8-10.44); Carbon Dioxide 29 mmol/L (23-31); Chloride 91 mmol/L (98-107); Estimated GFR-MDRD 28; Glucose 177 mg/dL (83-110); Protein, Total 8.5 g/dL (6.0-8.3); Sodium 133 mmol/L (136-145)
[2019-02-25] MEDS ORDERED: Acetaminophen 325 MG TAB PO PRN (03:03)
[2019-02-25] MEDS ORDERED: Dextrose 50% Abboject 50 ML SYRINGE SLOW IVP PRN (03:11)
[2019-02-25] MEDS ORDERED: Dextrose 5% in Water 1,000 ML IV PRN (03:11)
[2019-02-25 03:32] LABS: Troponin I Less than 0.010 ng/mL (< 0.028)
--- NOTE | 2019-02-25 04:12 | HP ---
CHIEF COMPLAINT: Shortness of breath. HISTORY OF PRESENT ILLNESS: This patient is an 84-year-old female with a history of interstitial lung disease, followed by Dr. Alexis. The patient was just admitted to this facility on 02/13/2019 for some altered mental status, which had quickly resolved, appeared to be due to a urinary tract infection. The patient was subsequently discharged home on 02/15/2019. She had a CT angiogram of the thorax at that time which revealed no PE, global cardiomegaly and increased interstitial markings representing interstitial lung disease or possible interstitial edema. Also of note, the patient's most recent echocardiogram done on 02/15/2019, showed an EF of 50% to 55%, some diastolic dysfunction. The patient reports that she is chronically wearing 2 L of oxygen at home. Two days ago, she started having increasing shortness of breath and cough. She denies any chest pain, sputum production, or specific fever. She does report that she feels generally cold. Ultimately, she presented to the emergency department here where she had an O2 saturation of 84% on 4 L nasal cannula oxygen. In the emergency department, the patient has received a dose of IV Lasix and a DuoNeb. REVIEW OF SYSTEMS: The patient reports the general feeling of fatigue and cold. All other systems reviewed. All pertinent positives and negatives noted in the history of present illness. PAST MEDICAL HISTORY: Notable for apparent chronic interstitial lung disease, congestive heart failure with EF of 50% to 55%, and diastolic dysfunction, iron deficiency anemia, history of schizophrenia. PAST SURGICAL HISTORY: Appendectomy, cholecystectomy. SOCIAL HISTORY: The patient smoked one pack a day for over 50 years. She has an occasional beer. She lives with family. She is full code and her daughter, Teresa, who is with her this evening is identified as her surrogate decision maker. ALLERGIES: CIMETIDINE. CURRENT MEDICATIONS: 1. Risperidone 2 mg b.i.d. 2. Simvastatin 10 mg daily. 3. Levothyroxine 75 mcg daily. 4. Metoprolol 100 mg b.i.d. 5. Iron 325 mg daily. 6. Temazepam 15 mg one p.o. at bedtime. 7. Clonidine 0.1 mg, regimen not known. 8. Isosorbide 30 mg daily. 9. Januvia 100 mg daily. 10. Amlodipine 5 mg daily. 11. Potassium 20 mEq daily. 12. Lasix 40 mg b.i.d. PHYSICAL EXAMINATION: VITAL SIGNS: Blood pressure is 135/55, pulse 90, respirations 22, temperature 98.7, O2 saturation 84% on 4 L. GENERAL APPEARANCE: Age-appropriate female. She appears a bit uncomfortable. She is tachypneic, wearing face mask oxygen. She is a bit somnolent, however, that is appropriate. She is conversant and pleasant, cooperative. HEENT: [place]. No OP lesions. NECK: Supple and symmetric. HEART: Regular without murmurs, gallops, or rubs. LUNGS: Diminished with some scattered rales bilaterally. No wheezes are audible. ABDOMEN: Soft, nontender, and nondistended. Positive bowel sounds. No masses. No organomegaly. EXTREMITIES: No cyanosis, clubbing, or edema. PSYCH: The patient is not talking much because of her shortness of breath, but appears to have normal affect and behavior. NEURO: She appears to be cognitively intact, moving all extremities spontaneously with no evidence of focal deficits. LABORATORY DATA: White count 32.3, hemoglobin 9.6, platelets 380. Sodium 133, potassium 4.0, chloride 91, CO2 of 29, BUN 35, creatinine is 2.05, glucose 177, AST 16, ALT 7. Troponin less than 0.01. BNP is 126.3. Albumin 3.5. Chest x-ray shows chronic interstitial lung disease, unclear whether there is actual pulmonary edema superimposed on the ILD such as heart failure. Pacemaker is noted. Cardiomegaly is noted. EKG, sinus rhythm at 75 beats per minute. IMPRESSION AND PLAN: 1. Acute on chronic hypoxic respiratory failure. The patient is typically on 2 L of nasal cannula. She is requiring face mask oxygen and is currently able to get her saturations up to the range of 96, although she appears to be still slightly tachypneic. She will be admitted to the intermediate care unit. We will consult Dr. Alexis who is her regular battalion fire chief following her interstitial lung disease. 2. Chronic interstitial lung disease. Give p.r.n. nebs, supplemental oxygen. 3. Possible pneumonia as evidenced by the acute hypoxic respiratory failure and a white count of 32.3. She has not recently been on steroids. Therefore, concerning for infection, we will check lactic acid level. Given her recent admission, we will cover for hospital-acquired infection with vancomycin and cefepime. 4. Acute on chronic kidney disease. She appears to have a stage 3b chronic kidney disease with worsening creatinine now. We will gently hydrate. 5. Mild hyponatremia. We will see response to the hydration. 6. Chronic anemia. She appears to be about her baseline hemoglobin levels. 7. Diabetes mellitus. Accu-Cheks and sliding scale. 8. Hypothyroidism. We will resume her home medication once entered into the system. 9. Hypertension. Continue with the isosorbide and amlodipine and beta blockers once they have been placed into the [facility] system. Job ID: [id number] MTDD
[2019-02-25 05:59] VITALS: BMI 39.9
[2019-02-25 06:07] LABS: Troponin I 0.013 ng/mL (< 0.028)
[2019-02-25] MEDS ORDERED: FLU VACC TS2019-20(65YR UP)/PF 180 MCG/0.5 ML SYRINGE IM ONE (06:45)
[2019-02-25] MEDS: Amlodipine 5 MG TAB PO SCH (08:44)
[2019-02-25] MEDS: Isosorbide Mononitrate (ER) 30 MG TAB PO SCH (08:44)
[2019-02-25] MEDS: Enoxaparin Sodium 30 MG/0.3 ML SYRINGE SC SCH (08:48)
[2019-02-25] MEDS: Cefepime 1 GM in Sodium Chloride 0.9% 100 ML IVPB SCH ×2 (08:48→20:39)
[2019-02-25] MEDS ORDERED: Vancomycin HCl 1 GM in Premix Bag 1 BAG IVPB SCH (09:00)
[2019-02-25] MEDS: Vancomycin HCl 1.25 GM in Sodium Chloride 0.9% 250 ML 250 ML IVPB SCH (09:40)
[2019-02-25] MEDS: HumaLOG 300 UNITS/3 ML VIAL SC PRN ×2 (15:49→20:52)
[2019-02-25 18:18] LABS: #Basophils 0.1 thou/uL (0.0-0.2); #Eosinphils 2.1 thou/uL (0.0-0.7); #Lymphocytes 1.9 thou/uL (1.20-3.40); #Monocytes 1.7 thou/uL (0.11-0.59); #Neutrophils 18.6 thou/uL (1.40-6.50); %Basophils 0.2 % (0.0-1.0); %Eosinophils 8.7 % (0.0-10.0); %Lymphocytes 7.6 % (21.0-51.0); %Monocytes 6.9 % (0.0-10.0); %Neutrophils 76.6 % (42.0-75.0); Hemoglobin 8.9 g/dL (12.0-16.0); Mean Corpuscular Hemoglobin 26.6 pg (27.0-31.0); Mean Corpuscular Volume 88.4 fL (78.0-98.0); Mean Platelet Volume 7.6 fL (7.4-10.4); Platelet Count 334 thou/uL (130-400); RBC Distribution Width 13.6 % (11.5-14.5); Red Blood Cell (RBC) Count 3.36 mill/uL (4.20-5.40); White Blood Cell (WBC) Count 24.3 thou/uL (4.8-10.8)
[2019-02-25 18:36] LABS: Anion Gap 12 mmol/L (10-20); BUN (Urea Nitrogen) 33 mg/dL (9.8-20.1); Calc. Creatinine Clearance 34 mL/min (70-130); Carbon Dioxide 31 mmol/L (23-31); Chloride 92 mmol/L (98-107); Estimated GFR-MDRD 32; Glucose 133 mg/dL (83-110); Potassium 3.7 mmol/L (3.5-5.1); Sodium 131 mmol/L (136-145)
--- NOTE | 2019-02-25 22:10 | CON ---
DATE OF CONSULTATION: 02/25/2019 HISTORY OF PRESENT ILLNESS: Janice Velasco is an 84-year-old female who is admitted with shortness of breath. She has interstitial lung disease of unclear etiology. She also has diastolic dysfunction. She presented with shortness of breath and cough. She says she is clinically dramatically better than she was yesterday. PAST MEDICAL HISTORY: Remarkable for anemia and schizophrenia. PAST SURGICAL HISTORY: Remarkable for an appendectomy, cholecystectomy. SOCIAL HISTORY: She has a 50 pack-year history of smoking. She is nondrinker. ALLERGIES: SHE HAS ALLERGIES TO CIMETIDINE. MEDICATIONS: Have been reviewed. FAMILY HISTORY: Negative for lung disease in early age. REVIEW OF SYSTEMS: 10 point review of systems completed, otherwise negative. She says she feels close to her baseline. PHYSICAL EXAMINATION: GENERAL: Janice Velasco is an 84-year-old female who is admitted with shortness of breath. VITAL SIGNS: She is afebrile. Heart rate is 78, blood pressure , respiratory rates in the 20s, oximetry is 92. HEENT: Pupils are equal. Sclerae are anicteric. She has a flat affect. NECK: Supple. No lymphadenopathy. LUNGS: Clear. HEART: Regular rhythm. ABDOMEN: Soft and nontender. EXTREMITIES: Without clubbing, cyanosis, or edema. LABORATORY DATA: Chest radiograph shows no change since earlier this month. White count 24.3, hemoglobin 8.9, platelets 334. Sodium 131, potassium 3.7, chloride 92, bicarb 31, BUN , creatinine 1.82. IMPRESSION: 1. Volume depletion. 2. Interstitial lung disease of unclear etiology. 3. Deconditioning. 4. Obesity. PLAN: Continue supportive care. She can move out of the critical care unit in my opinion. This is a 70 minute consult, with greater than 50% of time spent on unit coordinating care. Job ID: [id number] MTDD
[2019-02-26 06:11] LABS: Anisocytosis SLIGHT = 6-15 cells (100X) (0-5/hpf); Band 6 % (5-11); Eosinophils 10 % (0-10); Hemoglobin 8.3 g/dL (12.0-16.0); Lymphocytes 7 % (21-51); MDiff Complete? YES; Mean Corpuscular HGB CONC 29.8 g/dL (32.0-36.0); Mean Corpuscular Hemoglobin 26.5 pg (27.0-31.0); Mean Corpuscular Volume 88.8 fL (78.0-98.0); Mean Platelet Volume 7.6 fL (7.4-10.4); Monocytes 7 % (0-10); Neutrophil 70 % (42-75); Platelet Count 310 thou/uL (130-400); RBC Distribution Width 13.8 % (11.5-14.5); Red Blood Cell (RBC) Count 3.14 mill/uL (4.20-5.40); White Blood Cell (WBC) Count 16.7 thou/uL (4.8-10.8)
[2019-02-26 06:16] LABS: Anion Gap 13 mmol/L (10-20); BUN (Urea Nitrogen) 30 mg/dL (9.8-20.1); Calc. Creatinine Clearance 39 mL/min (70-130); Calcium 8.8 mg/dL (7.8-10.44); Carbon Dioxide 31 mmol/L (23-31); Chloride 94 mmol/L (98-107); Estimated GFR-MDRD 38; Glucose 119 mg/dL (83-110); Potassium 3.5 mmol/L (3.5-5.1); Sodium 134 mmol/L (136-145)
[2019-02-26] MEDS: Cefepime 1 GM in Sodium Chloride 0.9% 100 ML IVPB SCH ×2 (08:35→20:52)
[2019-02-26] MEDS: Enoxaparin Sodium 30 MG/0.3 ML SYRINGE SC SCH (08:35)
[2019-02-26] MEDS: Amlodipine 5 MG TAB PO SCH (08:35)
[2019-02-26] MEDS: Isosorbide Mononitrate (ER) 30 MG TAB PO SCH (08:39)
[2019-02-26] MEDS: Vancomycin HCl 1.25 GM in Sodium Chloride 0.9% 250 ML 250 ML IVPB SCH (09:47)
--- NOTE | 2019-02-26 10:12 | PRG ---
DATE OF SERVICE: 02/26/2019 SUBJECTIVE: Ms. Velasco has no complaints. OBJECTIVE: VITAL SIGNS: She is afebrile. She has a nasal cannula in place, oximetry is 95%, blood pressure is 113/54, heart rate is 107. Intake and outputs positive 200. LUNGS: Clear. HEART: Regular rhythm. ABDOMEN: Soft. LABORATORY STUDIES: White count 16.7, hemoglobin 8.3, platelets 310. Electrolytes were normal. BUN is 30, creatinine 1.56, down from 1.82. ASSESSMENT: 1. Interstitial lung disease. No diagnostic or therapeutic intervention is indicated for this. 2. Chronic hypoxemic respiratory failure, stable on oxygen. 3. ?pneumonia empirically being treated with antimicrobial therapy. 4. Acute on chronic kidney disease with improving renal function. 5. Diabetes. 6. Hypertension. 7. Extreme deconditioning. PLAN: Continue current supportive care. She is stable to move out of Critical Care in my opinion. Job ID: [id number]
[2019-02-26] MEDS: HumaLOG 300 UNITS/3 ML VIAL SC PRN ×2 (11:28→18:19)
--- NOTE | 2019-02-26 13:53 | PDOC.HOSPP ---
- Subjective Encounter Date: 02/26/19 Encounter Time: 13:52 Subjective: No new complaints - Objective Vital Signs & Weight: Vital Signs (12 hours) Temp 02/26/19 11:23 98.1 F 02/26/19 07:27 98.0 F 02/26/19 04:00 98.4 F Weight Weight 204 lb 2.369 oz Most Recent Monitor Data Heart Rate from ECG 99 NIBP 117/66 NIBP BP-Mean 83 Respiration from ECG 29 SpO2 96 I&O: 02/25/19 02/26/19 02/27/19 06:59 06:59 06:59 Intake Total 1100 1010 Output Total 900 Balance 200 1010 Result Diagrams: 02/26/19 05:41 02/26/19 05:41 Additional Labs: Accuchecks 02/26/19 02/25/19 02/25/19 11:25 20:54 15:49 POC Glucose 215 H 189 H 162 H Hospitalist ROS - Medication Medications: Active Medications Generic Name Dose Route Start Last Admin Trade Name Freq PRN Reason Stop Dose Admin Amlodipine Besylate 5 mg 02/25/19 09:00 02/26/19 08:35 Norvasc PO 5 mg DAILY LAYTON Administration Enoxaparin Sodium 30 mg 02/25/19 09:00 02/26/19 08:35 Lovenox SC 30 mg 0900 LAYTON Administration Cefepime HCl 1 gm/ Sodium 100 mls @ 200 mls/hr 02/25/19 09:00 02/26/19 08:35 Chloride IVPB 100 mls Q12HR LAYTON Administration Vancomycin HCl 1.25 gm/ Sodium 250 mls @ 166.667 mls/hr 02/25/19 08:00 09:47 Chloride IVPB 250 mls Q24HR LAYTON Administration Insulin Human Lispro 0 units 02/25/19 03:11 02/26/19 11:28 Humalog SC 3 units .MILD SLIDING SCALE PRN Administration Mild Correctional Scale Isosorbide Mononitrate 30 mg 02/25/19 09:00 02/26/19 08:39 Imdur Er PO 30 mg DAILY LAYTON Administration Sodium Chloride 10 ml 02/25/19 09:00 02/26/19 08:36 Flush - Normal Saline IVF Not Given Q12HR LAYTON - Exam General Appearance: NAD, awake alert, ill appearing Eye: PERRL, anicteric sclera, scleral icterus ENT: normocephalic atraumatic, no oropharyngeal lesions, moist mucosa, dry oral mucosa Neck: supple, symmetric, no JVD, no thyromegaly, no lymphadenopathy, no carotid bruit, JVD Heart: RRR, no murmur, no gallops, no rubs, normal peripheral pulses, irregular , diminshed peripheral pulses, murmur present, II/IV, III/IV Respiratory: CTAB, no wheezes, no rales, no ronchi, normal chest expansion, no tachypnea, normal percussion, rales, rhonchi, tachypneic, wheezes Gastrointestinal: soft, non-tender, non-distended, normal bowel sounds, no palpable masses, no hepatomegaly, no splenomegaly, no bruit, no guarding, no rigidity, tender to palpation, distended, diminished bowl sounds, voluntary guarding Extremities: no cyanosis, no clubbing, no edema, 1+ LE edema, 2+ LE edema, clubbing Hosp A/P (1) Leukocytosis Code(s): D72.829 - ELEVATED WHITE BLOOD CELL COUNT, UNSPECIFIED Status: Acute - Plan continue medications, monitor CBC
[2019-02-26] MEDS ORDERED: Acetaminophen 325 MG TAB PO PRN (13:54)
[2019-02-26] MEDS ORDERED: cloNIDine 0.1 MG TAB PO PRN (13:54)
[2019-02-26 14:53] LABS: #Eosinphils 0.5 thou/uL (0.0-0.7); #Lymphocytes 1.1 thou/uL (1.20-3.40); #Monocytes 1.5 thou/uL (0.11-0.59); #Neutrophils 12.3 thou/uL (1.40-6.50); %Basophils 0.1 % (0.0-1.0); %Eosinophils 3.4 % (0.0-10.0); %Lymphocytes 7.3 % (21.0-51.0); %Monocytes 9.5 % (0.0-10.0); %Neutrophils 79.7 % (42.0-75.0); Hemoglobin 8.3 g/dL (12.0-16.0); Mean Corpuscular HGB CONC 29.9 g/dL (32.0-36.0); Mean Corpuscular Hemoglobin 26.8 pg (27.0-31.0); Mean Corpuscular Volume 89.4 fL (78.0-98.0); Mean Platelet Volume 7.8 fL (7.4-10.4); Platelet Count 303 thou/uL (130-400); RBC Distribution Width 13.7 % (11.5-14.5); Red Blood Cell (RBC) Count 3.11 mill/uL (4.20-5.40); White Blood Cell (WBC) Count 15.4 thou/uL (4.8-10.8)
[2019-02-26 15:16] LABS: Anion Gap 14 mmol/L (10-20); BUN (Urea Nitrogen) 30 mg/dL (9.8-20.1); Calc. Creatinine Clearance 37 mL/min (70-130); Calcium 8.9 mg/dL (7.8-10.44); Carbon Dioxide 29 mmol/L (23-31); Chloride 93 mmol/L (98-107); Estimated GFR-MDRD 35; Glucose 191 mg/dL (83-110); Potassium 3.7 mmol/L (3.5-5.1); Sodium 132 mmol/L (136-145)
[2019-02-26] MEDS: Melatonin 3 MG TAB PO SCH (20:52)
[2019-02-26] MEDS: traZODone HCl 50 MG TAB PO SCH (20:52)
[2019-02-26] MEDS: Furosemide 40 MG TAB PO SCH (20:53)
[2019-02-26] MEDS: risperiDONE 1 MG TAB PO SCH (20:53)
[2019-02-26] MEDS: Metoprolol Tartrate 100 MG TAB PO SCH (20:56)
[2019-02-27] MEDS ORDERED: Furosemide 40 MG/4 ML VIAL ONE (02:01)
[2019-02-27] MEDS ORDERED: Furosemide 40 MG/4 ML VIAL SLOW IVP SCH (02:15)
[2019-02-27] MEDS: Levothyroxine Sodium 75 MCG TAB PO SCH (05:12)
[2019-02-27] MEDS: Cefepime 1 GM in Sodium Chloride 0.9% 100 ML IVPB SCH ×2 (08:16→20:23)
[2019-02-27] MEDS: Alogliptin 25 MG TAB PO SCH (09:39)
--- NOTE | 2019-02-27 09:42 | PRG ---
DATE OF SERVICE: 02/27/2019 SUBJECTIVE: The patient is seen and examined at the bedside. She feels better. She is asking whether she can go home today. Her appetite is fair. She moves her bowels almost every day. OBJECTIVE: VITAL SIGNS: Blood pressure is 139/90, pulse is 71, temperature is 98.7, respiratory rate is 16, O2 saturation is 95% on nasal cannula. HEENT: Her head is atraumatic and normocephalic. Sclerae are nonicteric. Conjunctivae are pinkish. Oral mucosa is moist. NECK: Supple. LUNGS: Dry crackles, mostly at both bases. HEART: S1 and S2, normal. No S3. No S4. ABDOMEN: Soft, nontender, nondistended. EXTREMITIES: No clubbing, cyanosis, or edema. NEUROLOGICAL: She moves her all 4 extremities. There is no any motor or sensory deficits. LABORATORY DATA: Glycemia is ranging from 145 to 215. Vancomycin trough is 19. IMPRESSION: 1. Interstitial lung disease. 2. Pneumonia, suspected. 3. Chronic hypoxemic respiratory failure on oxygen. 4. Acute on chronic kidney disease, stage 3. 5. Diabetes mellitus. 6. Hypertension. 7. Deconditioning. PLAN: We are going to continue her broad-spectrum antibiotic until we have final recommendation from blood bank worker regarding switching to oral and continuation of oral antibiotic on outpatient basis. We will continue her current regimen. We will continue her DVT prophylaxis, and we will ask PT to evaluate her. Job ID: [id number]
[2019-02-27] MEDS: Furosemide 40 MG TAB PO SCH ×2 (09:43→20:22)
[2019-02-27] MEDS: risperiDONE 1 MG TAB PO SCH ×2 (09:43→20:22)
[2019-02-27] MEDS: Amlodipine 5 MG TAB PO SCH (09:43)
[2019-02-27] MEDS: Ferrous Sulfate 325 MG TAB PO SCH (09:45)
[2019-02-27] MEDS: Simvastatin 20 MG TAB PO SCH (09:45)
[2019-02-27] MEDS: Isosorbide Mononitrate (ER) 30 MG TAB PO SCH (09:46)
[2019-02-27] MEDS: Enoxaparin Sodium 30 MG/0.3 ML SYRINGE SC SCH (09:47)
[2019-02-27] MEDS: Vancomycin HCl 1.25 GM in Sodium Chloride 0.9% 250 ML 250 ML IVPB SCH (09:47)
[2019-02-27] MEDS: Potassium Chloride 20 MEQ TAB PO SCH (09:47)
[2019-02-27 10:24] LABS: #Eosinphils 1.2 thou/uL (0.0-0.7); #Lymphocytes 1.5 thou/uL (1.20-3.40); #Monocytes 1.2 thou/uL (0.11-0.59); #Neutrophils 10.4 thou/uL (1.40-6.50); %Basophils 0.2 % (0.0-1.0); %Eosinophils 8.1 % (0.0-10.0); %Lymphocytes 10.5 % (21.0-51.0); %Monocytes 8.3 % (0.0-10.0); %Neutrophils 72.9 % (42.0-75.0); Hemoglobin 8.3 g/dL (12.0-16.0); Mean Corpuscular HGB CONC 29.2 g/dL (32.0-36.0); Mean Corpuscular Hemoglobin 26.4 pg (27.0-31.0); Mean Corpuscular Volume 90.4 fL (78.0-98.0); Mean Platelet Volume 7.8 fL (7.4-10.4); Platelet Count 340 thou/uL (130-400); RBC Distribution Width 13.7 % (11.5-14.5); Red Blood Cell (RBC) Count 3.14 mill/uL (4.20-5.40); White Blood Cell (WBC) Count 14.3 thou/uL (4.8-10.8)
[2019-02-27 10:41] LABS: Anion Gap 10 mmol/L (10-20); BUN (Urea Nitrogen) 22 mg/dL (9.8-20.1); Calc. Creatinine Clearance 40 mL/min (70-130); Calcium 8.8 mg/dL (7.8-10.44); Carbon Dioxide 33 mmol/L (23-31); Chloride 93 mmol/L (98-107); Estimated GFR-MDRD 39; Glucose 189 mg/dL (83-110); Potassium 3.6 mmol/L (3.5-5.1); Sodium 132 mmol/L (136-145)
[2019-02-27] MEDS: Metoprolol Tartrate 100 MG TAB PO SCH ×2 (11:54→20:23)
--- NOTE | 2019-02-27 14:05 | PQF ---
CLINICAL DOCUMENTATION IMPROVEMENT CLARIFICATION FORM: ICD-10 Updated PLEASE DO AN ADDENDUM TO THE PROGRESS NOTE WITH ANY DOCUMENTATION UPDATES OR ADDITIONS AND CARRY THROUGH TO DC SUMMARY. THANK YOU. DATE: 02/27/2019 ATTN: Dr. Hui Please exercise your independent, professional judgment in responding to the clarification form. Clinical indicators are provided on the bottom of this form for your review Please check appropriate box(s): [ ] Acute Renal Failure (ARF) / Acute Kidney Injury (JADYN) [ x ] Acute on Chronic Renal Failure [ ] CKD without ARF/JADYN [ ] Other diagnosis [ ] Unable to determine In addition, please specify: Present on Admission (POA): [ x ] Yes [ ] No [ ] Unable to determine For continuity of documentation, please document condition throughout progress notes and discharge summary. Thank You. CLINICAL INDICATORS - SIGNS / SYMPTOMS / LABS H&P 02/25: creatinine is 2.05 Acute on chronic kidney disease. She appears to have a stage 3b chronic kidney disease with worsening creatinine now. 02/25 @ 0119 02/26 @ 0541 02/27 LABS: Creatinine 2.05 1.56 1.52 Estimated GFR 28 38 39 PN 02/27: Acute on chronic kidney disease, stage 3 RISKS: H&P 02/25: Acute on chronic hypoxic respiratory failure. Possible pneumonia. Acute on chronic kidney disease. TREATMENT: H&P 02/25: Acute on chronic kidney disease. We will gently hydrate. Lab Order for BMP 02/25, 02/26, 02/27 National Kidney Foundation Guidelines for CKD Staging Stage I Kidney damage with normal or increased GFR GFR > 90 Stage II Kidney damage with mildly decreased GFR GFR 60-89 Stage III Kidney damage with moderately decreased GFR GFR 30-59 Stage IV Kidney damage with severely decreased GFR GFR 16-29 Stage V Kidney failure GFR<15 ESRD End Stage Renal Disease On dialysis Acute Renal Failure/Acute Kidney Failure defined as: Increases in SCr by (>) 0.3 mg/dl within 48 hours OR- Increases in SCr by (>) 1.5 times baseline, known or presumed to have occurred within the prior 7 days OR- Urine volume < 0.5 ml/kg/hour for 6 hours (KDIGO supplement 2012 for RIFLE/SHAHANA criteria) Thank you, Lavonne (This form is maintained as a part of the permanent medical record) 2014 [employer]. All Rights Reserved Lavonne Enriquez RN, BSN [email or web address] Office: [phone] [facility]
--- NOTE | 2019-02-27 14:34 | PQF ---
CLINICAL DOCUMENTATION IMPROVEMENT CLARIFICATION FORM: ICD-10 Updated PLEASE DO AN ADDENDUM TO THE PROGRESS NOTE WITH ANY DOCUMENTATION UPDATES OR ADDITIONS AND CARRY THROUGH TO DC SUMMARY. THANK YOU. DATE: 02/27/2019 ATTN: Dr. Hui Please exercise your independent, professional judgment in responding to the clarification form. Clinical indicators are provided on the bottom of this form for your review Please check appropriate box(s): [ ] Empirically treating Gram Negative Pneumonia [ ] Empirically treating Anaerobic Pneumonia [ ] Pneumonia secondary to (specify organism / underlying disease) ___ [ ] Simple Pneumonia (community acquired - nosocomial) [ x] Pneumonia of unknown etiology [ ] Other diagnosis [ ] Unable to determine In addition, please specify: Present on Admission (POA): [ x] Yes [ ] No [ ] Unable to determine For continuity of documentation, please document condition throughout progress notes and discharge summary. Thank You. CLINICAL INDICATORS - SIGNS / SYMPTOMS / LABS H&P 10/2: Possible pneumonia as evidenced by the acute hypoxic respiratory failure and white count 32.3. Given her recent admission, we will cover for hospital-acquired infection RISKS: H&P 10/2: Acute on chronic hypoxic respiratory failure. Chronic interstitial lung disease. Possible pneumonia. Acute on chronic kidney disease. DM TREATMENT: MAR: Order 02/25: Vancomycin HCL 1.25 gm IV q 24 hr MAR: Order 02/25: Cefepime 1 gm IV q 12 hr Thank you, Lavonne (This form is maintained as a part of the permanent medical record) 2014 [email or web address]. All Rights Reserved Lavonne Enriquez RN, BSN [email or web address] Office: [phone] [facility]
--- NOTE | 2019-02-27 20:08 | PRG ---
DATE OF SERVICE: 02/27/2019 SUBJECTIVE: Janice Velasco has no complaints. OBJECTIVE: VITAL SIGNS: She is afebrile. Heart rate 71, respiratory rate 17, oximetry is 92%, and blood pressure is 112/63. LUNGS: Remarkable for crackles over bases. HEART: Regular rhythm. ABDOMEN: Soft. LABORATORY DATA: White count 14.3, hemoglobin 8.3, platelets 340. Sodium 132, potassium 3.6, chloride 93, bicarb 33, BUN 22, and creatinine 1.5, down from an admitting creatinine of 2.05. IMPRESSION: 1. Interstitial lung disease of unclear etiology. 2. Acute on chronic kidney disease with improving renal function. 3. Deconditioning. 4. Diabetes. She needs to ambulate a little more, but appears to be getting close to a point where she could be discharged to home. Job ID: [id number]
[2019-02-27] MEDS: traZODone HCl 50 MG TAB PO SCH (20:22)
[2019-02-27] MEDS: Melatonin 3 MG TAB PO SCH (20:22)
[2019-02-28] MEDS: Levothyroxine Sodium 75 MCG TAB PO SCH (05:31)
[2019-02-28 06:03] LABS: Vancomycin, Trough 20.7 ug/mL
[2019-02-28] MEDS ORDERED: Vancomycin HCl 1 GM in Premix Bag 1 BAG IVPB SCH (08:00)
[2019-02-28] MEDS: Cefepime 1 GM in Sodium Chloride 0.9% 100 ML IVPB SCH (08:03)
[2019-02-28] MEDS: Ferrous Sulfate 325 MG TAB PO SCH (08:07)
[2019-02-28] MEDS: Simvastatin 20 MG TAB PO SCH (08:08)
[2019-02-28] MEDS: risperiDONE 1 MG TAB PO SCH (08:10)
[2019-02-28] MEDS: Furosemide 40 MG TAB PO SCH (08:11)
[2019-02-28] MEDS: Isosorbide Mononitrate (ER) 30 MG TAB PO SCH (08:11)
[2019-02-28] MEDS: Amlodipine 5 MG TAB PO SCH (08:11)
[2019-02-28] MEDS: Alogliptin 25 MG TAB PO SCH (08:12)
[2019-02-28] MEDS: Potassium Chloride 20 MEQ TAB PO SCH (08:12)
[2019-02-28] MEDS: Enoxaparin Sodium 30 MG/0.3 ML SYRINGE SC SCH (08:14)
[2019-02-28 10:12] LABS: #Eosinphils 1.2 thou/uL (0.0-0.7); #Lymphocytes 1.9 thou/uL (1.20-3.40); #Monocytes 1.3 thou/uL (0.11-0.59); #Neutrophils 10.3 thou/uL (1.40-6.50); %Basophils 0.3 % (0.0-1.0); %Eosinophils 8.2 % (0.0-10.0); %Lymphocytes 12.5 % (21.0-51.0); %Monocytes 9.1 % (0.0-10.0); %Neutrophils 69.9 % (42.0-75.0); Hemoglobin 8.2 g/dL (12.0-16.0); Mean Corpuscular HGB CONC 30.8 g/dL (32.0-36.0); Mean Corpuscular Hemoglobin 27.1 pg (27.0-31.0); Mean Platelet Volume 7.7 fL (7.4-10.4); Platelet Count 331 thou/uL (130-400); RBC Distribution Width 13.5 % (11.5-14.5); Red Blood Cell (RBC) Count 3.04 mill/uL (4.20-5.40); White Blood Cell (WBC) Count 14.8 thou/uL (4.8-10.8)
[2019-02-28 10:29] LABS: Anion Gap 10 mmol/L (10-20); BUN (Urea Nitrogen) 19 mg/dL (9.8-20.1); Calc. Creatinine Clearance 43 mL/min (70-130); Calcium 8.9 mg/dL (7.8-10.44); Carbon Dioxide 32 mmol/L (23-31); Chloride 95 mmol/L (98-107); Estimated GFR-MDRD 42; Glucose 199 mg/dL (83-110); Potassium 3.8 mmol/L (3.5-5.1); Sodium 133 mmol/L (136-145)
[2019-02-28 14:52] VITALS: BP 118/70; TEMP 98.4
[2019-02-28] MEDS: Metoprolol Tartrate 100 MG TAB PO SCH (14:52)
--- NOTE | 2019-02-28 18:14 | PRG ---
DATE OF SERVICE: 02/28/2019 SUBJECTIVE: Janice Velsaco is sitting out of bed in chair beside the bed. She said she had been walking around in the room. No complaints and no distress. OBJECTIVE: VITAL SIGNS: Have been stable. LUNGS: Unchanged. HEART: Unchanged. ABDOMEN: Unchanged. ASSESSMENT: Overall, she appears ready for discharge. I will be happy to see her in followup in the office. She has an appointment in our office in 2 weeks. Job ID: [id number]
--- NOTE | 2019-03-02 12:43 | DIS ---
DATE OF ADMISSION: 02/25/2019 DATE OF DISCHARGE: 02/28/2019 FINAL DIAGNOSES: At the time of discharge; 1. Interstitial lung disease of unclear type at this point. 2. Suspected pneumonia. 3. Chronic hypoxemic respiratory failure on oxygen. 4. Acute on chronic kidney disease stage 3. 5. Diabetes mellitus type 2. 6. Hypertension. 7. Deconditioning. STRATEGIC PARTNERSHIP REPRESENTATIVE: Dr. Jay Ewing, Pulmonary Service. HOSPITAL COURSE: The patient is an 84-year-old female with history of interstitial lung disease, followed by Dr. Alexis, who was admitted to the hospital just recently for altered mental status, but she was quickly released. This was secondary to her urinary tract infection. Subsequently, she was discharged home on the February 15. She had CT angiogram of the thorax at this time, which revealed no PE, but global cardiomegaly and increased interstitial markings represent interstitial lung disease and possibly interstitial edema. Also, most recent echo showed LVEF of 52% to 55% with some diastolic dysfunction. She is chronically wearing 2 L of oxygen at home, and a couple of days prior to this hospitalization, she started having increased shortness of breath and cough. She denied any chest pain, sputum production, or specific fever. She presented to the emergency room. She was saturating at 84% on 4 L by nasal cannula. She received a dose of IV Lasix and DuoNeb's in the emergency room, and further evaluation revealed a white count of 32.3, hemoglobin of 9.6. Sodium 133, potassium 4.0, chloride 91, CO2 of 29, BUN 35, creatinine 2.05. Her BNP was 126. Chest x-ray showed chronic interstitial lung disease, unclear whether this was actually pulmonary edema, superimposed on ILD such as heart failure. She also had cardiomegaly on her chest x-ray. Echocardiogram showed sinus rhythm with 75 beats per minute of ventricular rate. She was admitted to the hospital for further management. She went to intermediate care unit for possible pneumonia. She was treated with broad-spectrum antibiotic, vancomycin and cefepime since she was just discharged from the hospital. Foundry Manager was consulted, and the patient was seen by Dr. Ewing, who recommended to continue supportive care. Her white count went down to 24,000 and then gradually to 14,000 today. Her creatinine gradually improved to 1.44, and her glycemia was ranging from mid 100s to 200s. Clinically, she improved nicely. Microbiology did not show any specific testing during this hospitalization. Today, she is doing well. She is examined, and she was cleared by rn wound care to be discharged home. Her antibiotic at the time of discharge is levofloxacin 500 mg once a day for 5 days. Also, she will continue her other home medications, which are, 1. Furosemide 40 mg twice a day. 2. Januvia 100 mg once a day. 3. Trazodone 50 mg at bedtime. 4. Melatonin 3 mg at bedtime. 5. Zocor 10 mg daily. 6. Risperdal 2 mg twice a day. 7. Metoprolol tartrate 100 mg twice a day. 8. Potassium 20 mEq every morning. 9. Iron 65 mg once a day. 10. Imdur ER 30 mg once a day. 11. Levothyroxine 75 mcg once a day. 12. Amlodipine 5 mg once a day. 13. Tylenol p.r.n. and DuoNeb's along with her Toujeo 14 units every morning. She is going to follow up with her primary care physician in [address] Alexis in 2 weeks, and she will stay on a heart healthy diet and diabetic diet. Job ID: [id number]
--- NOTE | 2019-03-03 04:05 | PQF ---
[employer] Lead Crystal Reports Winform Viewer EDYTA ALEXANDER MARLENA COLEMAN MD [id number] [facility] [id number] CLINICAL DOCUMENTATION CLARIFICATION FORM: POST DISCHARGE Addendum to original discharge summary date: ____ Late entry note date: __ DATE: 03/03/19 ATTN: Gary Vega Please exercise your independent, professional judgment in responding to the clarification form. Clinical indicators are provided on the bottom of this form for your review Can you please further specify the type and acuity of CHF based on the clinical indicators below? Please check appropriate box(s): HEART FAILURE: A. TYPE: [ ] Systolic / HFrEF [ x ] Diastolic / HFpEF [ ] Combined Systolic / Diastolic B. ACUITY [ ] Acute [ x ] Acute on Chronic [ ] Chronic [ ] Other diagnosis please specify [ ] Unable to determine In addition, please specify: Present on Admission (POA): [ x ] Yes [ ] No [ ] Unable to determine For continuity of documentation, please document condition throughout progress notes and discharge summary. Thank You. CLINICAL INDICATORS - SIGNS / SYMPTOMS / LABS ED provider pg.4- Primary: Final CHF exacerbation H and P 02/25 pg.1- In the Emergency department, the patient received a dose of lasix and a duoneb DS pg.110/5- Most recent ECHO showed LVEF pf 52% to 55% with some diastolic dysfunction DS pg.1 10- Her BNP was 126 DS pg.1 10- Chest X-ray showed chronic interstitial lung disease, unclear whether thi was actually pulmonary edema, superimposed on ILD such as heart failure RISKS: Chronic hypoxemic respiratory failure- DS pg.1 10 Diabetes mellitus type 2- DS pg.1 10 Hypertension- DS pg.1 02/25 Obesity- Consult Dr. Ewing pg.1 Smoke one pack a day for 50 years- H and P pg.1 Volume Depletion-Consult Dr. Ewing pg.1 TREATMENTS: Chest X ray- 02/25 Furosemide (Lasix) 40mg IV- AUG 03 I and O monitoring Oxygen- H and P pg.1 (This form is maintained as a part of the permanent medical record) 2014 [email or web address] All Rights Reserved Kings [email or web address] [not provided] MTDD
--- NOTE | 2019-03-03 04:10 | PQF ---
[employer] Graduate Teaching Associate Crystal Reports Winform Viewer EDYTA ALEXANDER DAVID R MD [id number] [facility] [id number] CLINICAL DOCUMENTATION CLARIFICATION FORM: POST DISCHARGE Addendum to original discharge summary date: ____ Late entry note date: __ DATE: 03/03/19 ATTN: Gary Vega Please exercise your independent, professional judgment in responding to the clarification form. Clinical indicators are provided on the bottom of this form for your review Can you please further specify the diagnosis based on the clinical indicators below? Please check appropriate box(es): [ x] Sepsis due to: (Pna, UTI, gangrenous gall bladder, etc.) ____pneumonia____ [ ] SIRS due to non-infectious process (please specify etiology) [ ] with organ dysfunction [ ] without organ dysfunction [ ] Severe sepsis with acute organ dysfunction of: (Examples: respiratory failure, encephalopathy, acute kidney failure, other) [ ] Localized infection without sepsis [ ] Other diagnosis please specify [ ] Unable to determine In addition, please specify: Present on Admission (POA): [ x] Yes [ ] No [ ] Unable to determine For continuity of documentation, please document condition throughout progress notes and discharge summary. Thank You. CLINICAL INDICATORS - SIGNS / SYMPTOMS / LABS H and P pg.1- Reports that she is chronically wearing 2L of oxygen at home H and P pg.1-Increase shortness of breath and cough H and P pg.2- "Chronic interstitial lung disease" H and P pg.1 - Laboratory WBC 32.3 Hospitalist PN 02/26 Dr. Amaya pg.1- Leukocytosis Physician documentation 02/27 Dr. Hui-"Pneumonia" RISK FACTORS Acte on chronic hypoxic respiratory failure- H and P pg.2 Pneumonia- DS pg.1 Acute on chronic CKD 3- DS pg.1 Deconditioning- DS pg.1 Interstitial ling disease- DS pg.1 TREATMENTS: Broad spectrum antibiotics- DS pg.1 IV Fluids- AUG 03 Pulmonary Consult- Dr. Ewing Chest X ray 02/24 (This form is maintained as a part of the permanent medical record) 2014 [employer] [place] All Rights Reserved Kings [email or web address] [not provided] MTDD
== END 2019-02-28 17:19 | disposition home or self-care (01) | DRG 871 ==
LOC: ERS 23:03 → ERHOLD 02-25 03:00 → CCU 02-25 06:25 → T4-A 02-26 13:21
PROVIDERS: ADMIT Internal Medicine; ATTEND Internal Medicine
DX: A41.9 Sepsis, unspecified organism (principal); J18.9 Pneumonia, unspecified organism; J96.21 Acute and chronic respiratory failure with hypoxia; I50.33 Acute on chronic diastolic (congestive) heart failure; I13.0 Hypertensive heart and chronic kidney disease with heart failure and stage 1 through stage 4 chronic kidney disease, or unspecified chronic kidney disease; J84.9 Interstitial pulmonary disease, unspecified; N17.9 Acute kidney failure, unspecified; E87.1 Hypo-osmolality and hyponatremia; I50.9 Heart failure, unspecified; F20.9 Schizophrenia, unspecified; F32.9 Major depressive disorder, single episode, unspecified; E11.22 Type 2 diabetes mellitus with diabetic chronic kidney disease; D72.829 Elevated white blood cell count, unspecified; N18.3 Chronic kidney disease, stage 3 (moderate); D63.1 Anemia in chronic kidney disease; E03.9 Hypothyroidism, unspecified; E66.9 Obesity, unspecified; E86.9 Volume depletion, unspecified; D50.9 Iron deficiency anemia, unspecified; Z87.891 Personal history of nicotine dependence; Z90.49 Acquired absence of other specified parts of digestive tract; Z88.8 Allergy status to other drugs, medicaments and biological substances; Z79.899 Other long term (current) drug therapy; Z79.4 Long term (current) use of insulin; Z99.81 Dependence on supplemental oxygen; Z95.0 Presence of cardiac pacemaker; Z68.39 Body mass index [BMI] 39.0-39.9, adult; Z23 Encounter for immunization
CPT/HCPCS: 36415; 36416; 71045; 80048; 80053; 80202; 83605; 83880; 84484; 85007; 85025; 85027; 93005; 96374; J0692; J1650; J1940; J3370; J3490; J7050; J7620

== ENCOUNTER 2019-06-03 05:11 | Observation (INO) | payer MEDICARE, MEDICAID ==
[2019-06-03] MEDS ORDERED: Albuterol Sulfate 2.5 mg/3 ml Neb ONE (05:29)
[2019-06-03 05:53] LABS: Mean Corpuscular Volume 87.6 fL (78.0-98.0)
[2019-06-03 06:12] LABS: ALT (SGPT) 8 U/L (8-55); AST (SGOT) 17 U/L (5-34); Albumin 3.1 g/dL (3.4-4.8); Alkaline Phosphatase 63 U/L (40-110); Anion Gap 12 mmol/L (10-20); BUN (Urea Nitrogen) 22 mg/dL (9.8-20.1); Bilirubin, Total 0.3 mg/dL (0.2-1.2); Calc. Creatinine Clearance 0 mL/min (70-130); Calcium 8.9 mg/dL (7.8-10.44); Carbon Dioxide 32 mmol/L (23-31); Chloride 99 mmol/L (98-107); Estimated GFR-MDRD 38; Globulin 4.6 g/dL (2.4-3.5); Glucose 118 mg/dL (83-110); Potassium 4.3 mmol/L (3.5-5.1); Protein, Total 7.7 g/dL (6.0-8.3); Sodium 139 mmol/L (136-145)
[2019-06-03] MEDS ORDERED: Furosemide 40 MG/4 ML VIAL ONE (06:26)
[2019-06-03] MEDS ORDERED: methylPREDNISolone Sod Succ/PF 125 MG/2 ML VIAL ONE (06:26)
[2019-06-03] MEDS ORDERED: Nitroglycerin 2% Ointment 1 INCH/1 GM Packet ONE (06:26)
[2019-06-03 06:47] LABS: #Eosinphils 0.5 thou/uL (0.0-0.7); #Lymphocytes 2.1 thou/uL (1.20-3.40); #Monocytes 1.1 thou/uL (0.11-0.59); #Neutrophils 8.7 thou/uL (1.40-6.50); %Basophils 0.3 % (0.0-1.0); %Eosinophils 3.9 % (0.0-10.0); %Lymphocytes 17.1 % (21.0-51.0); %Monocytes 8.6 % (0.0-10.0); %Neutrophils 70.2 % (42.0-75.0); Hemoglobin 8.8 g/dL (12.0-16.0); Mean Corpuscular HGB CONC 31.1 g/dL (32.0-36.0); Mean Corpuscular Hemoglobin 27.5 pg (27.0-31.0); Mean Platelet Volume 7.7 fL (7.4-10.4); Platelet Count 348 thou/uL (130-400); RBC Distribution Width 14.2 % (11.5-14.5); Red Blood Cell (RBC) Count 3.19 mill/uL (4.20-5.40); White Blood Cell (WBC) Count 12.4 thou/uL (4.8-10.8)
--- NOTE | 2019-06-03 07:29 | RAD ---
Chest one view HISTORY: Dyspnea. COMPARISON: 11/24/2018. FINDINGS: Cardiac silhouette remains magnified and enlarged. Pulmonary vasculature is engorged. Infil trate within the right upper lobe is slightly more pronounced. Patchy infiltrate throughout the remaining lobes and denser infiltrate in within the left lower lobe are stable. Mediastinum is midline with aortic calcification and a dually left subclavian cardiac electronic yanique ce. No evidence of pneumothorax. IMPRESSION: Prominent bilateral infiltrates, pulmonary vascular congestion, and other findings are st able.
--- NOTE | 2019-06-03 09:16 | PDOC.HHP ---
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 Weakness mostly when attempts to ambulate. Associated with shortness of breath after a few steps, but patient not certain different from baseline. Also noticed increased dry cough starting a week ago, and in the past two days producing clear sputum. 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 On encounter, lying comfortably in bed with no apparent distress. Edorses black stools which are normal for her since she's taking iron and urinary urgency, which is chronic for which she's wearing diaper. Denies recent falls, focal weakness, reduced oral intake, pleuritic chest pain, chest pressure, palpitations, abdominal pain, diarrhea, constipation, suprapubic pressure, polyuria, urinary frequency or burning, muscle ache, recent sick contact. Of note, has not had the flu vaccination this season. Hospitalist ROS - Review of Systems Constitutional: reports: weakness, malaise. denies: fever, chills, sweats, other Eyes: denies: pain, vision change, conjunctivae inflammation, eyelid inflammation, redness, other ENT: denies: ear pain, ear discharge, nose pain, nose discharge, nose congestion , mouth pain, mouth swelling, throat pain, throat swelling, other Respiratory: reports: cough, dry, shortness of breath. denies: hemoptysis, SOB with excertion, pleuritic pain, sputum, wheezing, other Cardiovascular: denies: chest pain, palpitations, orthopnea, paroxysmal noc. dyspnea, edema, light headedness Gastrointestinal: denies: nausea, vomiting, abdominal pain, diarrhea, constipation, melena, hematochezia Genitourinary: denies: dysuria, frequency, incontinence, hematuria, retention, other Musculoskeletal: denies: neck pain, shoulder pain, arm pain, back pain, hand pain, leg pain, foot pain, other Skin: denies: rash, lesions, evans, bruising, other Neurological: denies: weakness, numbness, incoordination, change in speech, confusion, seizures, other All other systems reviewed; all pertinent +/- noted in HPI/Subj Hospitalist History - Past Medical History Cardiac: reports: CHF (mixed) Pulmonary: reports: lung disease (ILD) 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: denies: no pertinent history, Carpal Tunnel Syndrome, CVA, Dementia, Migraine, Peripheral neuropathy, Seizure, TIA, Vertigo, Other Gastrointestinal: denies: no pertinent history, Constipation, Diverticulosis, GERD, GI bleed, Gastritis, Hemorrhoids, Inflam bowel disease, Irritable bowel disease, Peptic ulcer disease, Other Heme/Onc: reports: Iron deficiency anemia Hepatobiliary: reports: no pertinent history Psych: reports: Schizophrenia Musculoskeletal: reports: no pertinent history Rheumatologic: reports: no pertinent history Renal/: reports: no pertinent history Endocrine: reports: Diabetes Dermatology: reports: no pertinent history - Past Surgical History Past Surgical History: reports: Appendectomy, Cholecystectomy - Family History Family History: reports: diabetes mellitus, hypertension - Social History Smoking Status: Former smoker (50 pack years) Alcohol: reports: None, Occassional (occasional beer) Drugs: reports: none Living Situation: Alone (director of home health services every day) Domestic Violence: Negative Activity level: independent ambulation - Exam General Appearance: NAD, awake alert Eye: PERRL ENT: normocephalic atraumatic, no oropharyngeal lesions, dry oral mucosa Neck: no JVD Heart: RRR, no murmur, no gallops, normal peripheral pulses Respiratory: no wheezes, no ronchi, normal chest expansion, rales (diffuse fine inspiratory rales) Gastrointestinal: soft, non-tender, non-distended, normal bowel sounds, no guarding, no rigidity Extremities: no cyanosis, no edema Skin: normal turgor Neurological: negative: cranial nerve grossly intact, normal sensation to touch , no weakness, no focal deficits, no new deficit, facial droop, hemiplegia, speech deficit, vision deficit Musculoskeletal: normal tone, normal strength, no muscle wasting Psychiatric: normal affect, normal behavior, A&O x 3, oriented to place, oriented to time, not oriented, flat affect, somnolent, lethargic Hospitalist Results - Labs Result Diagrams: 06/03/19 05:39 06/03/19 05:39 Lab results: WBC 12.4 thou/uL (4.8-10.8) H 06/03/19 05:39 Hgb 8.8 g/dL (12.0-16.0) L 06/03/19 05:39 Hct 28.2 % (36.0-47.0) L 06/03/19 05:39 MCV 87.6 fL (78.0-98.0) 06/03/19 05:39 Plt Count 348 thou/uL (130-400) 06/03/19 05:39 Neutrophils % 70.2 % (42.0-75.0) 06/03/19 05:39 Sodium 139 mmol/L (136-145) 06/03/19 05:39 Potassium 4.3 mmol/L (3.5-5.1) 06/03/19 05:39 Chloride 99 mmol/L (98-107) 06/03/19 05:39 Carbon Dioxide 32 mmol/L (23-31) H 06/03/19 05:39 BUN 22 mg/dL (9.8-20.1) H 06/03/19 05:39 Creatinine 1.58 mg/dL (0.6-1.1) H 06/03/19 05:39 Glucose 118 mg/dL (83-110) H 06/03/19 05:39 Calcium 8.9 mg/dL (7.8-10.44) 06/03/19 05:39 Total Bilirubin 0.3 mg/dL (0.2-1.2) 06/03/19 05:39 AST 17 U/L (5-34) 06/03/19 05:39 ALT 8 U/L (8-55) 06/03/19 05:39 Alkaline Phosphatase 63 U/L (40-110) 06/03/19 05:39 Troponin I Less than 0.010 ng/mL (< 0.028) 06/03/19 05:39 B-Natriuretic Peptide 647.6 pg/mL (0-100) H 06/03/19 05:39 Serum Total Protein 7.7 g/dL (6.0-8.3) 06/03/19 05:39 Albumin 3.1 g/dL (3.4-4.8) L 06/03/19 05:39 - EKG Interpretation EKG: Paced rhythm with nonspecific T-wave inversion, similar to previous EKGs Hospitalist H&P A/P - Problem (1) Generalized weakness Code(s): R53.1 - WEAKNESS Status: Acute Assessment and Plan: qSOFA 0/3 on exam, HD stable -satting 90% on 4L -chronic neutrophilia; chest-x ray stable compared to previous with exception of diffuse upper right lobe patches, likely pulmonary hypertension induced atelectasis. Will check for urinary tract infection considering history of infection and wearing a diaper and for infleunza despite inconsistent illness history and medical exam -though adherent to levothyroxine, not clear if taking appropriately in AM before diet or other medications so will check TSH -Unlikely anemic etiology considering stable blood count, unlikely cardiac etiology considering stable paced rhythm, troponin negative x 1 and blood count -will check orthostats considering weakness mostly when starting to ambulate (2) Acute on chronic combined systolic and diastolic CHF, NYHA class 3 Code(s): I50.43 - ACUTE ON CHRONIC COMBINED SYSTOLIC AND DIASTOLIC HRT FAIL Status: Acute Assessment and Plan: -Prior to pacing had reduced Ejection fraction. Most recent Echo showing mild HFrEF -short of breath after walking a few steps -BNP elevated likely due to pulmonary hypertension groups 2 and 3 -patient adherent to lasix 40mg PO bid; not clear if adherent to diet restrictions -normovolemic on exam -I/O -considering no longer has reduced ejection fraction and not hypervolemic, as well as pulmonary hypertension, will reduce lasix to 20mg PO bid -continue remaining heart failure medications - (3) Restrictive airway disease Code(s): J98.4 - OTHER DISORDERS OF LUNG Status: Chronic Assessment and Plan: -most recent PFTs c/w restrictive pattern -exam and chest x-ray c/w diffuse interstitial disease -may be contributing to hypoxic respiratory failure -outpatient pulmonology to follow up (4) Acute type 1 respiratory failure Code(s): J96.01 - ACUTE RESPIRATORY FAILURE WITH HYPOXIA Status: Acute Assessment and Plan: baseline 3L Oxygen at home and shortness of breath with a few steps -on presentation was satting in the 80s -no wheezing or coarse crackles on exam; unlikely obstructive disease -CXR more consistent with atelectasis (likely due to worsening pulmonary hypertension) and stable interstitial disease -High bicarb chronically; likely chronic retention due to OHS -currently >88% with 4L NC -titrate NC to keep >88% -duoneb PRN wheezing, shortness of breath - Plan Plan: -will admit to observation and test for further infectious and metabolic workup and treatment -likely discharge 06/04/2019
[2019-06-03 10:03] LABS: Troponin I 0.027 ng/mL (< 0.028)
[2019-06-03] MEDS ORDERED: Acetaminophen 325 MG TAB PO PRN (10:48)
[2019-06-03] MEDS ORDERED: Dextrose 50% Abboject 50 ML SYRINGE SLOW IVP PRN (11:54)
[2019-06-03] MEDS ORDERED: HumaLOG 300 UNITS/3 ML VIAL SC PRN (11:54)
[2019-06-03] MEDS ORDERED: Dextrose 5% in Water 1,000 ML IV PRN (11:54)
[2019-06-03 13:06] LABS: Troponin I Less than 0.010 ng/mL (< 0.028)
[2019-06-03 16:54] VITALS: BMI 37.7
[2019-06-03] MEDS: HumaLOG 300 UNITS/3 ML VIAL SC PRN (17:47)
[2019-06-03 19:22] LABS: Bilirubin Negative (Negative); Blood, Urine 1+ (Negative); Clarity Clear (Clear); Glucose, Urine (Dipstick) 50 mg/dL (Negative); Leukocyte 500 Leu/uL (Negative); Nitrite Negative (Negative); Protein, Urine (Dipstick) 10 mg/dL (Neg-Trace); Squamous Epithelial 0-3 HPF (0-3); Urobilinogen Normal mg/dL (Less than 2); WBC/HPF 21-50 HPF (0-3)
[2019-06-03 19:30] LABS: Bacteria/HPF 1+ HPF (None Seen)
[2019-06-03 19:31] LABS: Urine Culture Reflex Yes Yes
[2019-06-03] MEDS: risperiDONE 1 MG TAB PO SCH (20:49)
[2019-06-03] MEDS: Furosemide 40 MG TAB PO SCH (20:50)
[2019-06-03] MEDS: Metoprolol Tartrate 100 MG TAB PO SCH (20:50)
[2019-06-03] MEDS: Heparin 5,000 UNITS/ML VIAL SC SCH (20:51)
[2019-06-03] MEDS ORDERED: traZODone HCl 50 MG TAB PO SCH (21:00)
[2019-06-03] MEDS ORDERED: Melatonin 3 MG TAB PO SCH (21:00)
[2019-06-03] MEDS ORDERED: Furosemide 40 MG TAB PO SCH (21:00)
[2019-06-04] MEDS: HumaLOG 300 UNITS/3 ML VIAL SC PRN ×2 (05:39→11:06)
[2019-06-04] MEDS ORDERED: Levothyroxine Sodium 75 MCG TAB PO SCH (06:00)
[2019-06-04] MEDS ORDERED: Potassium Chloride 20 MEQ TAB PO SCH (08:00)
[2019-06-04] MEDS: Furosemide 40 MG TAB PO SCH (08:43)
[2019-06-04] MEDS: risperiDONE 1 MG TAB PO SCH (08:44)
[2019-06-04] MEDS: Heparin 5,000 UNITS/ML VIAL SC SCH (08:44)
[2019-06-04] MEDS ORDERED: Isosorbide Mononitrate (ER) 30 MG TAB PO SCH (09:00)
[2019-06-04] MEDS ORDERED: Amlodipine 5 MG TAB PO SCH (09:00)
[2019-06-04] MEDS ORDERED: Alogliptin 25 MG TAB PO SCH (09:00)
[2019-06-04] MEDS: Metoprolol Tartrate 100 MG TAB PO SCH (09:24)
[2019-06-04 11:45] VITALS: BP 111/68; TEMP 97.5
--- NOTE | 2019-06-04 20:00 | DIS ---
DATE OF ADMISSION: 06/03/2019 DATE OF DISCHARGE: 06/04/2019 HOSPITAL COURSE: Ms. Janice Velasco is an 84-year-old female with medical history of interstitial lung disease, mixed heart failure, pacemaker in place, and chronic anemia. She presented for generalized weakness for the past week. The weakness is mostly when she attempts to ambulate associated with shortness of breath after few steps, but per the patient was at around baseline. She also noticed some dry cough in the past week as well as produced increased sputum. In the ED, she was found to be in acute hypoxic respiratory failure. She was started on nasal cannula 4 L, her baseline is 3 L. Infectious workup was negative for workup of the generalized weakness and the respiratory failure including stable chest x-ray showing mostly restrictive patterns and urinalysis that was positive, but without symptoms, so she had asymptomatic bacteriuria. Troponins were negative. EKG was unchanged compared to her previous EKG and TSH were normal as well. The patient was started on fluids. On the following day, she improved. Orthostatics were negative. She was discharged to home and was requested to make followup appointments with Pulmonology for further workup of her restrictive lung disease as well as Oncology for workup of monoclonal paraproteinemia. DISCHARGE PHYSICAL EXAMINATION: GENERAL: She was in no apparent distress. Awake and alert. EYE: PERRL. ENT: Normocephalic and atraumatic. No oropharyngeal lesions. HEART: Regular rate and rhythm. No JVD. No murmur. No gallops. Normal peripheral pulses. RESPIRATORY: No wheezes. No rhonchi. Normal chest expansion and there were rales, but improved compared to the day of admission. GASTROINTESTINAL: Soft, nontender, and nondistended. Normal bowel sounds. No guarding. No rigidity. EXTREMITIES: No cyanosis. No edema. SKIN: Normal turgor. NEUROLOGIC: Negative throughout. MUSCULOSKELETAL: Normal tone. Normal strength. No muscle wasting. PSYCHIATRIC: Normal affect. Normal behavior. A and O x3. IMPRESSION AND PLAN: This is an 84-year-old female with medical history of interstitial lung disease, mixed heart failure with pacemaker in place and chronic anemia, who presented with general weakness and acute type 1 respiratory failure. 1. Generalized weakness: Infectious workup was negative. Metabolic etiology was also negative as well as cardiologic etiology. The patient most likely had lightheadedness and presyncope due to hypovolemia, so furosemide dose was decreased considering the patient was euvolemic on discharge. The patient was requested to schedule a followup with her PCP to assess necessity of continued furosemide rather than furosemide p.r.n. hypervolemia. Prior to discharge, the patient's orthostatics were examined and were unremarkable. 2. Acute on chronic combined systolic and diastolic congestive heart failure, [place] Heart Association class III. Prior to pacing, the patient had reduced ejection fraction, but the most recent echo showed mild diastolic dysfunction. The patient is short of breath after few steps, but that is her baseline. BNP elevated likely due to pulmonary hypertension group 2 and 3. The patient was adherent to Lasix 40 mg p.o. b.i.d. despite being euvolemic, there is no clear indication for usage of Lasix with pulmonary hypertension in the state of euvolemia. The patient was instructed to consult with primary care physician regarding continuation of furosemide as scheduled rather than the p.r.n. medication. 3. Restrictive airway disease. Most recent PFTs consistent with restrictive pattern. During admission, chest x-ray showed no significant changes. May be contributing to respiratory deterioration and the hypoxic respiratory failure. The patient was scheduled with outpatient Pulmonology for further workup and followup of restrictive lung disease. 4. Acute type 1 respiratory failure. The patient's baseline is 3 L of oxygen at home and shortness of breath after taking a few steps. On presentation was saturating in the 80s. No wheezing or crackles on exam, unlikely obstructive disease. Chest x-ray was stable with exception of right upper lobe atelectasis, which is likely due to the pulmonary hypertension. On discharge, the patient consistently saturating greater than 88% with 3 L of nasal cannula, which is baseline. The patient was requested to follow up with Pulmonology regarding restrictive lung disease. Job ID: [id number]
== END 2019-06-04 12:55 | disposition home or self-care (01) ==
LOC: ERS 05:11 → ERHOLD 07:29 → SURG A 14:55
PROVIDERS: ADMIT Hospitalist; ATTEND Emergency Medicine
DX: J96.01 Acute respiratory failure with hypoxia (principal); R53.1 Weakness; J84.9 Interstitial pulmonary disease, unspecified; F03.90 Unspecified dementia, unspecified severity, without behavioral disturbance, psychotic disturbance, mood disturbance, and anxiety; D50.9 Iron deficiency anemia, unspecified; F20.9 Schizophrenia, unspecified; I11.0 Hypertensive heart disease with heart failure; I50.43 Acute on chronic combined systolic (congestive) and diastolic (congestive) heart failure; E11.42 Type 2 diabetes mellitus with diabetic polyneuropathy; J45.909 Unspecified asthma, uncomplicated; Z86.73 Personal history of transient ischemic attack (TIA), and cerebral infarction without residual deficits; Z87.891 Personal history of nicotine dependence; Z79.4 Long term (current) use of insulin; Z79.899 Other long term (current) drug therapy; Z88.8 Allergy status to other drugs, medicaments and biological substances; Z95.0 Presence of cardiac pacemaker
CPT/HCPCS: 71045; 81001; 82962 ×2; 83880; 84484 ×2; 87077; 87086; 87186; 87804 ×2; 93005; 93306; 96372 ×2; 96374; 96375; 97116; 99285; G0378 ×3; 36415; 36416; 80053; 84443; 85025; J1644; J1940; J2930; J7611

== ENCOUNTER 2019-06-23 21:28 | Inpatient (IN) | payer MEDICARE, MEDICAID ==
[~2019-06-23 21:28] MED LIST changes: -ISOVUE-370 76%-LOCM 1 ML ONE; +Iopamidol-370 76% 500 ML 1 ML ONE
[2019-06-23 22:01] LABS: #Eosinphils 0.7 thou/uL (0.0-0.7); #Lymphocytes 1.2 thou/uL (1.20-3.40); #Monocytes 1.1 thou/uL (0.11-0.59); #Neutrophils 10.8 thou/uL (1.40-6.50); %Basophils 0.3 % (0.0-1.0); %Eosinophils 4.8 % (0.0-10.0); %Lymphocytes 8.6 % (21.0-51.0); %Monocytes 8.1 % (0.0-10.0); %Neutrophils 78.2 % (42.0-75.0); Hemoglobin 9.2 g/dL (12.0-16.0); Mean Corpuscular HGB CONC 29.3 g/dL (32.0-36.0); Mean Corpuscular Hemoglobin 26.1 pg (27.0-31.0); Platelet Count 328 thou/uL (130-400); RBC Distribution Width 13.7 % (11.5-14.5); Red Blood Cell (RBC) Count 3.53 mill/uL (4.20-5.40); White Blood Cell (WBC) Count 13.8 thou/uL (4.8-10.8)
--- NOTE | 2019-06-23 22:14 | RAD ---
XR Chest 1 View Portable HISTORY: Shortness of breath COMPARISON: 06/03/2019 exam. FINDINGS: Heart size is enlarged pulmonary vessels are engorged with increased interstitial alveolar lung changes fairly similar in appearance to the prior exam. IMPRESSION: Cardiomegaly with stable interstitial alveolar lung changes which are felt to represent p ulmonary edema superimposed on chronic lung change. Follow-up chest films would be recommended.
[2019-06-23 22:21] LABS: ALT (SGPT) 8 U/L (8-55); AST (SGOT) 16 U/L (5-34); Albumin 3.1 g/dL (3.4-4.8); Alkaline Phosphatase 66 U/L (40-110); Anion Gap 10 mmol/L (10-20); BUN (Urea Nitrogen) 18 mg/dL (9.8-20.1); Bilirubin, Total 0.2 mg/dL (0.2-1.2); Calc. Creatinine Clearance 0 mL/min (70-130); Calcium 8.6 mg/dL (7.8-10.44); Carbon Dioxide 34 mmol/L (23-31); Chloride 94 mmol/L (98-107); Estimated GFR-MDRD 38; Globulin 4.4 g/dL (2.4-3.5); Glucose 152 mg/dL (83-110); Potassium 4.3 mmol/L (3.5-5.1); Protein, Total 7.5 g/dL (6.0-8.3); Sodium 134 mmol/L (136-145)
--- NOTE | 2019-06-24 00:02 | CT ---
CT angiogram of chest performed with intravenous contrast enhancement with 3-D reconstructions HISTORY: Shortness of breath. Elevated d-dimer. COMPARISON: 02/13/2019 exam. FINDINGS: The lungs show more chronic appearing interstitial fibrotic lung change. There could certai nly be an element of edema present. Bibasilar parenchymal changes are slightly more confluent but are unchanged in appearance since 02/13/2019 study and are probably chronic in nature. The thoracic aorta is normal in caliber. There is good pulmonary artery opacification and there is no CT evidence for pulmonary embolus. Visualized liver parenchyma shows no focal findings. IMPRESSION: 1. No CT evidence for pulmonary embolus. 2. Chronic appearing interstitial fibrotic lung change which is very similar in appearance to the pre vious CT study. There are some bronchiectatic changes also present. Some element of edema is not excluded.
[2019-06-24] MEDS ORDERED: Furosemide 40 MG/4 ML VIAL ONE (01:26)
--- NOTE | 2019-06-24 01:34 | PDOC.HHP ---
Hospitalist HPI - History of Present Illness AMS, shortness of breath History of Present Illness: 84F with PMH ILD, CHF, PPM, anemia presents to ED for hypoxia, daughter reported 75% spo2 on RA, gave duoneb at home without improvement and went to ED. normally wears 3L O2 at home. CT PE negative for PE but revealed edema, fibrosis. Patient in bed altered, ABG drawn and revealed respiratory acidosis and hypercpnea, BIPAP ordered and disposition changed to ICU. Patient altered and unable to provide history, on NRB and not really able to wean since admission. Hospitalist ROS - Review of Systems ROS unobtainable: due to mental status - Medication Medications: reviewed Hospitalist History - Past Medical History Heme/Onc: reports: Iron deficiency anemia Hepatobiliary: reports: no pertinent history Psych: reports: Schizophrenia Musculoskeletal: reports: no pertinent history Rheumatologic: reports: no pertinent history Renal/: reports: no pertinent history Endocrine: reports: Diabetes Dermatology: reports: no pertinent history Other Medical History: ILD, CHF, PPM, anemia - Past Surgical History Past Surgical History: reports: Appendectomy, Cholecystectomy - Family History Family History: reports: no pertinent history - Social History Alcohol: reports: None, Occassional (occasional beer) Drugs: reports: none - Exam General - other findings: altered mental status, ill appearing Eye: PERRL ENT: normocephalic atraumatic, moist mucosa Neck: supple, no JVD Heart: RRR, no murmur, no gallops, no rubs Respiratory: rales, rhonchi Gastrointestinal: soft, non-tender, non-distended, normal bowel sounds, no palpable masses, no hepatomegaly, no splenomegaly, no bruit Extremities: no cyanosis, no clubbing, no edema Skin: normal turgor, no lesions, no rashes Neurological: cranial nerve grossly intact, normal sensation to touch, no weakness, no focal deficits, no new deficit Neurological - other findings: global weakness Musculoskeletal: normal tone, normal strength, no muscle wasting Psychiatric - other findings: unable to eval AMS Hospitalist Results - Labs Result Diagrams: 06/23/19 21:51 06/23/19 21:51 Lab results: WBC 13.8 thou/uL (4.8-10.8) H 06/23/19 21:51 Hgb 9.2 g/dL (12.0-16.0) L 06/23/19 21:51 Hct 31.4 % (36.0-47.0) L 06/23/19 21:51 MCV 89.0 fL (78.0-98.0) 06/23/19 21:51 Plt Count 328 thou/uL (130-400) 06/23/19 21:51 Neutrophils % 78.2 % (42.0-75.0) H 06/23/19 21:51 Sodium 134 mmol/L (136-145) L 06/23/19 21:51 Potassium 4.3 mmol/L (3.5-5.1) 06/23/19 21:51 Chloride 94 mmol/L (98-107) L 06/23/19 21:51 Carbon Dioxide 34 mmol/L (23-31) H 06/23/19 21:51 BUN 18 mg/dL (9.8-20.1) 06/23/19 21:51 Creatinine 1.58 mg/dL (0.6-1.1) H 06/23/19 21:51 Glucose 152 mg/dL (83-110) H 06/23/19 21:51 Calcium 8.6 mg/dL (7.8-10.44) 06/23/19 21:51 Total Bilirubin 0.2 mg/dL (0.2-1.2) 06/23/19 21:51 AST 16 U/L (5-34) 06/23/19 21:51 ALT 8 U/L (8-55) 06/23/19 21:51 Alkaline Phosphatase 66 U/L (40-110) 06/23/19 21:51 B-Natriuretic Peptide 217.2 pg/mL (0-100) H 06/23/19 22:03 Serum Total Protein 7.5 g/dL (6.0-8.3) 06/23/19 21:51 Albumin 3.1 g/dL (3.4-4.8) L 06/23/19 21:51 Hospitalist H&P A/P - Plan Plan: 84F with PMH ILD, CHF, PPM, anemia presents to ED for hypoxia. # acute and chronic hypoxic and hypercapneic respiratory failure - admit to ICU, BIPAP ordered - steroids - IV lasix - empiric vanc/zosyn - consult pulmpology # altered mental status - secondary to hypercapnea, treat as above # acute and chronic systolic and diastolic HF - increase lasix to 40mg IV, alredy responded with 1L output in ED today # leukocytosis - secondary to above critically ill with 1 or more organ system failure, high risk deterioration requiring emergent intervention. 45 minutes critical care time.
[2019-06-24 02:15] LABS: Bacteria/HPF 2+ HPF (None Seen); Bilirubin Negative (Negative); Blood, Urine Negative (Negative); Clarity Clear (Clear); Glucose, Urine (Dipstick) Normal (Negative); Leukocyte 250 Leu/uL (Negative); Nitrite 2+ (Negative); Protein, Urine (Dipstick) Negative (Neg-Trace); RBC/HPF 0-3 HPF (0-3); Urobilinogen Normal mg/dL (Less than 2)
[2019-06-24] MEDS ORDERED: cefTRIAXone\\ROCEPHIN 1 GM VIAL ONE (04:51)
[2019-06-24] MEDS ORDERED: cloNIDine 0.1 MG TAB PO PRN (05:44)
[2019-06-24] MEDS ORDERED: hydrALAZINE 20 MG/ML VIAL SLOW IVP PRN (05:44)
[2019-06-24] MEDS ORDERED: Promethazine HCl 12.5 MG in Sodium Chloride 0.9% 50 ML IVPB PRN (05:44)
[2019-06-24] MEDS ORDERED: Ondansetron PF 4 MG/2 ML Vial IVP PRN (05:44)
[2019-06-24] MEDS ORDERED: methylPREDNISolone Sod Succ 40 MG VIAL ONE ×2 (05:49→13:15)
[2019-06-24 05:56] LABS: Troponin I Less than 0.010 ng/mL (< 0.028)
[2019-06-24] MEDS ORDERED: Bacteriostatic Water 30 ML VIAL FS PRN (05:58)
[2019-06-24 06:12] LABS: Actual Bicarbonate (HCO3a) 35.2 mEq/L (22-28); Analyzer IN Cardio ER; Base Excess (BEa) 7.4 mEq/L (-2.0 to +3.0); Calcium, Ionized 1.16 mmol/L (1.12-1.30); Carboxyhemoglobin (COHb) 0.7 gm% (0.0-3.0); Hemoglobin (Hb) 9.9 g/dL (12.0-16.0); Potassium - ABG Lab 3.97 mmol/L (3.70-5.30); pH, Arterial 7.31 (7.35-7.45)
[2019-06-24] MEDS: Furosemide 40 MG/4 ML VIAL SLOW IVP SCH ×2 (06:18→14:24)
[2019-06-24 06:19] LABS: CO2 Tension 71.1 mmHg (35.0-45.0); O2 Tension (PaO2) 55.3 mmHg (> 60.0); Puncture Site RRA
[2019-06-24 06:20] LABS: ALV-art Gradient 169.545 (0-20)
[2019-06-24 08:30] LABS: Troponin I 0.012 ng/mL (< 0.028)
[2019-06-24] MEDS ORDERED: Vancomycin HCl 1 GM in Sodium Chloride 0.9% 250 ML 300 ML IVPB SCH (09:00)
[2019-06-24] MEDS ORDERED: Piperacillin/Tazobactam 2.25 GM VIAL ONE (09:22)
[2019-06-24] MEDS: Piperacillin/Tazobactam 2.25 GM in Sodium Chloride 0.9% 100 ML IVPB SCH ×3 (09:32→22:17)
[2019-06-24] MEDS ORDERED: Vancomycin HCl 1 GM in Premix Bag 1 BAG IVPB SCH (10:00)
[2019-06-24 12:40] LABS: Actual Bicarbonate (HCO3a) 33.5 mEq/L (22-28); Analyzer IN Cardio ER; Base Excess (BEa) 6.4 mEq/L (-2.0 to +3.0); Calcium, Ionized 1.16 mmol/L (1.12-1.30); Carboxyhemoglobin (COHb) 0.8 gm% (0.0-3.0); O2 Tension (PaO2) 71.1 mmHg (> 60.0); Potassium - ABG Lab 4.34 mmol/L (3.70-5.30); pH, Arterial 7.34 (7.35-7.45)
[2019-06-24 12:45] LABS: CO2 Tension 62.9 mmHg (35.0-45.0)
[2019-06-24] MEDS: methylPREDNISolone Sod Succ 40 MG VIAL IVP SCH ×2 (13:24→22:21)
[2019-06-24] MEDS: Polyethylene Glycol 3350 17 GM Packet PO SCH (14:23)
[2019-06-24 15:41] VITALS: BMI 35.7
--- NOTE | 2019-06-24 16:38 | PRG ---
DATE OF SERVICE: 06/24/2019 The patient is in the emergency room. She is placed on BiPAP around 6 or 7 o'clock this morning. She seems to be doing better in terms of her respirations. We will obtain ABGs on her around noon today. I will change her disposition from ICU to IMCU. We will still await for Pulmonary to see the patient and give us the recommendation. We will continue current regimen with IV steroids and IV Zosyn along with DuoNebs every 4 hours and Lasix. Job ID: [id number]
--- NOTE | 2019-06-24 20:52 | CON ---
DATE OF CONSULTATION: 06/24/2019 HISTORY OF PRESENT ILLNESS: Ms. Velasco is an 84-year-old female with interstitial lung disease. Name has really never been applied to her interstitial lung disease. She presented with hypoxemia, subsequently was admitted from the emergency room. CT done in the emergency room shows diffuse increase in interstitial markings. She says she feels fine. She is sitting up in bed, eating a full meal, and would barely stop talking because of her eating. She is in absolutely no distress. PAST MEDICAL HISTORY: Remarkable for, 1. Interstitial lung disease and it is not clearly progressive so far. 2. History of schizophrenia. 3. History of anemia. 4. History of an appendectomy. 5. History of a cholecystectomy. 6. History of [id number] history of smoking. FAMILY HISTORY: Negative for lung disease in early age. SOCIAL HISTORY: She is a nonsmoker now and nondrinker. ALLERGIES: SHE REPORTS CIMETIDINE ALLERGIES. REVIEW OF SYSTEMS: Ten-point is otherwise negative. PHYSICAL EXAMINATION: GENERAL: She is in no distress. She appears her age. VITAL SIGNS: She is afebrile, heart rate 72, respiratory rate is 22, oximetry is 99, FiO2 is 40%, and she was on BiPAP earlier. She is on nasal cannula when I saw her and in no distress. HEENT: Pupils are equal. Sclerae are anicteric. NECK: Supple. LUNGS: Remarkable for fine crackles at both lung bases. HEART: Regular rhythm. ABDOMEN: Soft. EXTREMITIES: Without clubbing, cyanosis, or edema. NEUROLOGIC: Nonfocal. IMPRESSION: Interstitial lung disease. Previous pulmonary function test from February that did not show clear-cut progression of her interstitial lung disease related changes on PFTs. Overall, she appears to be clinically stable. She appears to be improved. I suspect mucous plugging and deconditioning are playing a role in her admission. It would be reasonable to simplify antimicrobial therapy in the morning if her cultures remain negative. Job ID: [id number]
[2019-06-25 03:56] LABS: #Lymphocytes 1.1 thou/uL (1.20-3.40); #Monocytes 0.3 thou/uL (0.11-0.59); %Basophils 0.1 % (0.0-1.0); %Eosinophils 0.1 % (0.0-10.0); %Monocytes 2.3 % (0.0-10.0); %Neutrophils 89.5 % (42.0-75.0); Hemoglobin 8.8 g/dL (12.0-16.0); Mean Corpuscular HGB CONC 28.2 g/dL (32.0-36.0); Mean Corpuscular Hemoglobin 25.5 pg (27.0-31.0); Mean Corpuscular Volume 90.3 fL (78.0-98.0); Mean Platelet Volume 8.1 fL (7.4-10.4); Platelet Count 334 thou/uL (130-400); RBC Distribution Width 13.7 % (11.5-14.5); Red Blood Cell (RBC) Count 3.47 mill/uL (4.20-5.40); White Blood Cell (WBC) Count 13.4 thou/uL (4.8-10.8)
[2019-06-25] MEDS: Piperacillin/Tazobactam 2.25 GM in Sodium Chloride 0.9% 100 ML IVPB SCH ×4 (04:07→22:25)
[2019-06-25 04:15] LABS: Anion Gap 12 mmol/L (10-20); BUN (Urea Nitrogen) 21 mg/dL (9.8-20.1); Calc. Creatinine Clearance 37 mL/min (70-130); Calcium 8.9 mg/dL (7.8-10.44); Carbon Dioxide 28 mmol/L (23-31); Chloride 96 mmol/L (98-107); Estimated GFR-MDRD 36; Glucose 305 mg/dL (83-110); Magnesium 2.1 mg/dL (1.6-2.6); Potassium 4.4 mmol/L (3.5-5.1); Sodium 132 mmol/L (136-145)
[2019-06-25] MEDS: Furosemide 40 MG/4 ML VIAL SLOW IVP SCH (06:43)
[2019-06-25] MEDS: methylPREDNISolone Sod Succ 40 MG VIAL IVP SCH ×2 (06:43→13:48)
[2019-06-25] MEDS: Polyethylene Glycol 3350 17 GM Packet PO SCH (08:46)
--- NOTE | 2019-06-25 13:01 | PRG ---
DATE OF SERVICE: 06/25/2019 SUBJECTIVE: The patient is seen and examined at the bedside. She is off the BiPAP mask. She is on nasal cannula. OBJECTIVE: VITAL SIGNS: Blood pressure is 144/77, pulse is 79, temperature is 97.9, respiratory rate is 24, and O2 saturation is 100% on 3 L by nasal cannula. HEENT: Her eyes are PERRLA. Sclerae are nonicteric. Conjunctivae palish. Oral mucosa is slightly dry. NECK: Supple, obese. LUNGS: Diffuse inspiratory crackles bilaterally present. HEART: S1 and S2, somewhat distant. No S3. No S4. ABDOMEN: Soft, nontender, obese. EXTREMITIES: No clubbing, cyanosis, or edema. NEUROLOGICAL: She follows my commands. LABORATORY DATA: Labs showed white count of 13.4, hemoglobin of 8.8, hematocrit 31.3, and platelet count is 334. Sodium of 132, potassium 4.4, chloride 96, CO2 of 28, BUN 21, creatinine 1.63, and glucose 305. Two sets of troponins within normal limits. Microbiology; urine culture is growing gram-negative rods, more than 100,000 colonies. IMPRESSION: 1. Acute on chronic hypoxic and hypercapnic respiratory failure. 2. Altered mental status, improved with BiPAP treatment. 3. Acute on chronic systolic and diastolic heart failure. 4. Interstitial lung disease. 5. Urinary tract infection. PLAN: Continue IV antibiotic until we have final cultures. Vancomycin was stopped. She is only on Zosyn at this point. We will continue her DuoNebs and steroids. Medical Administrative saw her, and also, we will continue her Lasix, but we will lower the dose to 20 twice a day, and we will do Accu-Cheks a.c. and h.s. since her glycemia is going up. We will cover her with sliding scale. Job ID: [id number]
[2019-06-25] MEDS ORDERED: Dextrose 50% Abboject 50 ML SYRINGE SLOW IVP PRN (13:48)
[2019-06-25] MEDS ORDERED: Dextrose 5% in Water 1,000 ML IV PRN (13:48)
[2019-06-25] MEDS ORDERED: Acetaminophen 325 MG TAB PO PRN (13:49)
[2019-06-25] MEDS ORDERED: Non-Formulary Item 1 EACH (Nebulizer Accessories [Aeroneb Go] 1 EACH) MC PRN (13:49)
[2019-06-25] MEDS: Furosemide 20 MG/2 ML VIAL SLOW IVP SCH (13:54)
[2019-06-25] MEDS ORDERED: Furosemide 40 MG/4 ML VIAL SLOW IVP SCH (14:00)
[2019-06-25] MEDS: HumaLOG 300 UNITS/3 ML VIAL SC PRN ×2 (16:31→22:27)
--- NOTE | 2019-06-25 17:07 | PRG ---
DATE OF SERVICE: 06/25/2019 SERVICE: Pulmonary Medicine. INTERVAL HISTORY: The patient is doing fine from respiratory standpoint. She is breathing better today. Denies any current chest discomfort, nausea, or vomiting. She actually really likes the BiPAP. She has a home CPAP, and loved it at one time, but she believes the BiPAP has really helped to a significant degree. We will talk about whether or not this adjustment can be made in the outpatient setting. Otherwise, there has been no notable change to her condition. PHYSICAL EXAMINATION: VITAL SIGNS: Afebrile, pulse rate 85, blood pressure 153/88, respirations are 24, and saturation 95% on 3 L nasal cannula. GENERAL: The patient is awake and alert, in no apparent distress. LUNGS: Good air entry. Crackles are present throughout bilateral lung garcia. HEART: Normal rate, regular. ABDOMEN: Soft, nontender, and nondistended. Bowel sounds are positive. MUSCULOSKELETAL: No cyanosis or clubbing. No pitting today. NEUROLOGIC: Grossly nonfocal. LABORATORY DATA: WBC 13.4, hemoglobin 8.8, and platelets are 334,000. PH of 7.34, pCO2 of 62, PO2 of 71, corresponding to a saturation 92%. Creatinine 1.63, which is gently up trending, BUN 21. Basic metabolic profile and magnesium are unremarkable otherwise. Troponin is negative x3. BNP 217, which is roughly baseline. Liver function studies were previously unremarkable. Urinalysis is positive for leukocyte esterase and nitrites with minimal pyuria. 2+ bacteria are noted. Gram- negative bravo is growing in the urine culture. ASSESSMENT: 1. Acute on chronic hypoxic and hypercapnic respiratory failure. 2. Interstitial lung disease. 3. Urinary tract infection secondary to gram-negative bravo. DISCUSSION AND PLAN: We will continue supportive care. I will get Physical Therapy involved. Otherwise, Pulmonary Critical Care will continue to follow along. I will back off on our Solu-Medrol to prednisone once daily. Job ID: [id number] [facility]
[2019-06-25] MEDS: traZODone HCl 50 MG TAB PO SCH (22:24)
[2019-06-25] MEDS: risperiDONE 1 MG TAB PO SCH (22:24)
[2019-06-25] MEDS: Simvastatin 20 MG TAB PO SCH (22:24)
[2019-06-25] MEDS: Melatonin 3 MG TAB PO SCH (22:24)
[2019-06-25] MEDS: Metoprolol Tartrate 100 MG TAB PO SCH (22:25)
[2019-06-26] MEDS: Piperacillin/Tazobactam 2.25 GM in Sodium Chloride 0.9% 100 ML IVPB SCH ×4 (02:53→20:37)
[2019-06-26 04:12] LABS: Anion Gap 12 mmol/L (10-20); BUN (Urea Nitrogen) 22 mg/dL (9.8-20.1); Calc. Creatinine Clearance 42 mL/min (70-130); Calcium 8.7 mg/dL (7.8-10.44); Carbon Dioxide 31 mmol/L (23-31); Chloride 95 mmol/L (98-107); Estimated GFR-MDRD 42; Glucose 200 mg/dL (83-110); Magnesium 2.1 mg/dL (1.6-2.6); Potassium 3.7 mmol/L (3.5-5.1); Sodium 134 mmol/L (136-145)
[2019-06-26 04:27] LABS: #Lymphocytes 1.2 thou/uL (1.20-3.40); #Monocytes 1.3 thou/uL (0.11-0.59); #Neutrophils 16.5 thou/uL (1.40-6.50); %Eosinophils 0.1 % (0.0-10.0); %Lymphocytes 6.1 % (21.0-51.0); %Monocytes 6.8 % (0.0-10.0); Hemoglobin 8.7 g/dL (12.0-16.0); Mean Corpuscular HGB CONC 28.6 g/dL (32.0-36.0); Mean Corpuscular Hemoglobin 25.8 pg (27.0-31.0); Mean Corpuscular Volume 90.3 fL (78.0-98.0); Mean Platelet Volume 8.2 fL (7.4-10.4); Platelet Count 351 thou/uL (130-400); Red Blood Cell (RBC) Count 3.35 mill/uL (4.20-5.40)
[2019-06-26] MEDS: Furosemide 20 MG/2 ML VIAL SLOW IVP SCH (06:35)
[2019-06-26] MEDS: Levothyroxine Sodium 75 MCG TAB PO SCH (06:35)
[2019-06-26] MEDS: Ferrous Sulfate 325 MG TAB PO SCH (08:50)
[2019-06-26] MEDS: Potassium Chloride 20 MEQ TAB PO SCH (08:50)
[2019-06-26] MEDS: risperiDONE 1 MG TAB PO SCH ×2 (08:51→20:37)
[2019-06-26] MEDS: predniSONE 20 MG TAB PO SCH (08:51)
[2019-06-26] MEDS: Metoprolol Tartrate 100 MG TAB PO SCH ×2 (08:52→20:38)
[2019-06-26] MEDS: Amlodipine 5 MG TAB PO SCH (08:52)
[2019-06-26] MEDS: Alogliptin 25 MG TAB PO SCH (08:53)
[2019-06-26] MEDS: Insulin Glargine 18 UNITS in Pre-Filled Syringe SC SCH (08:54)
[2019-06-26] MEDS ORDERED: INSULIN GLARGINE HUM REC ANLOG 18 UNIT SQ SCH (09:00)
[2019-06-26] MEDS ORDERED: Furosemide 20 MG TAB PO SCH (09:00)
[2019-06-26] MEDS: Polyethylene Glycol 3350 17 GM Packet PO SCH (09:05)
[2019-06-26] MEDS: Furosemide 20 MG TAB PO SCH ×2 (09:11→20:38)
--- NOTE | 2019-06-26 09:58 | PRG ---
DATE OF SERVICE: 06/26/2019 SUBJECTIVE: The patient is seen and examined at the bedside. She is significantly feeling better. She is switched to nasal cannula. Her respirations improved. Her appetite is fair and she had bowel movements. OBJECTIVE: VITAL SIGNS: Blood pressure is 150/71, pulse is 65, temperature is 97.2, respiratory rate is 26, O2 saturation is 100% on 3 L by nasal cannula. HEENT: Head is atraumatic and normocephalic. Eyes are PERRLA. Sclerae are nonicteric. Conjunctivae are palish. Oral mucosa is moist. NECK: Supple. LUNGS: Bilateral diffuse inspiratory dry crackles present. No wheezing. HEART: S1 and S2 normal. No S3. No S4. ABDOMEN: Soft, nontender, obese. EXTREMITIES: No clubbing, cyanosis, or edema. NEUROLOGICAL: She follows my commands. She moves all 4 extremities. LABORATORY DATA: Labs show white count of 19.0, hemoglobin of 8.7, hematocrit 30.3, platelet count is 351,000. Sodium of 134, potassium 3.7, chloride 95, CO2 of 31, BUN 22, creatinine 1.44, glycemia is ranging from 173 to 359, calcium 8.7, and magnesium 2.1. Microbiology; E coli as before, sensitive to multiple antibiotics, but resistant to ampicillin and Bactrim. IMPRESSION: 1. Acute on chronic respiratory failure, hypoxic and hypercapnic, improved with BiPAP. 2. Altered mental status, improved. 3. Acute on chronic systolic and diastolic heart failure. 4. Interstitial lung disease. 5. Urinary tract infection with Escherichia coli. PLAN: To continue her Zosyn. She is changed to oral prednisone by jacquard loom weaver. We will change her to oral Lasix 20 mg twice a day and she can be moved to the telemetry floor when the bed is available. Job ID: [id number]
--- NOTE | 2019-06-26 13:37 | PRG ---
DATE OF SERVICE: 06/26/2019 SERVICE: Pulmonary Medicine. INTERVAL HISTORY: The patient is fine from respiratory standpoint. Breathing comfortably. No complaints of chest discomfort, nausea, or vomiting. She has been weaned down to 3 L nasal cannula, which is what her home rate of oxygen is. Otherwise, there has been no interval change to her condition. She feels that her strength is improving. She has been working with Physical Therapy. PHYSICAL EXAMINATION: VITAL SIGNS: Afebrile, pulse 60, blood pressure 107/68, respirations 22, saturation 94%, currently on 3 L nasal cannula. GENERAL: The patient is awake and alert, in no apparent distress. LUNGS: Wonderful air entry. Crackles are present. No prolonged expiratory phase or wheezing is appreciated. HEART: Normal rate, regular. ABDOMEN: Soft, nontender, and nondistended. Bowel sounds are positive. MUSCULOSKELETAL: No cyanosis or clubbing. There is no pitting in the bilateral lower extremities. NEUROLOGIC: Grossly nonfocal. LABORATORY DATA: E. coli is growing in the urine, which is sensitive to fluoroquinolones. WBC 19.0, hemoglobin 8.7 and stable, platelets 351,000. Creatinine 1.44, BUN 22. Basic metabolic profile and magnesium are also unremarkable. ASSESSMENT: 1. Rxaqt-xg-uyjwzdr hypoxic and hypercapnic respiratory failure. 2. Interstitial lung disease. 3. Urinary tract infection secondary to gram-negative bravo. DISCUSSION AND PLAN: Because of the patient's severity of hypercapnic respiratory failure, I will be ordering home noninvasive ventilation for nighttime and daytime as needed use. A traditional BiPAP is insufficient because of the severity of her underlying lung disease. I do not believe that obstructive sleep apnea is contributing significantly to her hypercapnic failure. We will work on getting this set up. Once it is, she will be stable for transition home. At this point, she can be moved to the floor. I will follow while she remains in-house for now. Job ID: [id number]
[2019-06-26] MEDS: HumaLOG 300 UNITS/3 ML VIAL SC PRN ×2 (17:20→20:40)
[2019-06-26] MEDS: traZODone HCl 50 MG TAB PO SCH (20:38)
[2019-06-26] MEDS: Simvastatin 20 MG TAB PO SCH (20:38)
[2019-06-26] MEDS: Melatonin 3 MG TAB PO SCH (20:38)
[2019-06-27] MEDS: Piperacillin/Tazobactam 2.25 GM in Sodium Chloride 0.9% 100 ML IVPB SCH ×3 (03:07→14:24)
[2019-06-27 04:33] LABS: #Monocytes 1.6 thou/uL (0.11-0.59); #Neutrophils 12.4 thou/uL (1.40-6.50); %Eosinophils 0.2 % (0.0-10.0); %Lymphocytes 12.6 % (21.0-51.0); %Monocytes 10.1 % (0.0-10.0); Hemoglobin 8.6 g/dL (12.0-16.0); Mean Corpuscular HGB CONC 28.6 g/dL (32.0-36.0); Mean Corpuscular Volume 90.9 fL (78.0-98.0); Mean Platelet Volume 7.9 fL (7.4-10.4); Platelet Count 353 thou/uL (130-400); RBC Distribution Width 13.6 % (11.5-14.5); Red Blood Cell (RBC) Count 3.31 mill/uL (4.20-5.40); White Blood Cell (WBC) Count 16.1 thou/uL (4.8-10.8)
[2019-06-27 04:37] LABS: Anion Gap 13 mmol/L (10-20); BUN (Urea Nitrogen) 30 mg/dL (9.8-20.1); Calc. Creatinine Clearance 34 mL/min (70-130); Calcium 8.7 mg/dL (7.8-10.44); Carbon Dioxide 33 mmol/L (23-31); Chloride 97 mmol/L (98-107); Estimated GFR-MDRD 33; Glucose 209 mg/dL (83-110); Sodium 139 mmol/L (136-145)
[2019-06-27] MEDS: Levothyroxine Sodium 75 MCG TAB PO SCH (06:15)
[2019-06-27] MEDS: HumaLOG 300 UNITS/3 ML VIAL SC PRN ×3 (06:15→21:18)
[2019-06-27] MEDS: Alogliptin 25 MG TAB PO SCH (08:18)
[2019-06-27] MEDS: Potassium Chloride 20 MEQ TAB PO SCH (08:19)
[2019-06-27] MEDS: predniSONE 20 MG TAB PO SCH (08:20)
[2019-06-27] MEDS: Furosemide 20 MG TAB PO SCH ×2 (08:20→20:27)
[2019-06-27] MEDS: Amlodipine 5 MG TAB PO SCH (08:20)
[2019-06-27] MEDS: Ferrous Sulfate 325 MG TAB PO SCH (08:20)
[2019-06-27] MEDS: Metoprolol Tartrate 100 MG TAB PO SCH ×2 (08:20→20:27)
[2019-06-27] MEDS: risperiDONE 1 MG TAB PO SCH ×2 (08:20→20:26)
[2019-06-27] MEDS: Polyethylene Glycol 3350 17 GM Packet PO SCH (08:21)
[2019-06-27] MEDS: Insulin Glargine 18 UNITS in Pre-Filled Syringe SC SCH (08:21)
[2019-06-27] MEDS ORDERED: Loperamide HCl 2 MG CAP PO PRN (15:08)
--- NOTE | 2019-06-27 15:25 | PRG ---
DATE OF SERVICE: 06/27/2019 SUBJECTIVE: The patient was seen and examined at the bedside. She is doing somewhat better. She is on nasal cannula. The she had 4 watery bowel movements. OBJECTIVE: VITAL SIGNS: Blood pressure is 103/75, pulse is 60, respiratory rate is 22 on O2. HEENT: Her head is atraumatic and normocephalic. Sclerae are nonicteric. Oral mucosa is moist. LUNGS: Bilateral diffuse inspiratory dry crackles present. No wheezing. HEART: S1, S2 normal. No S3. No S4. ABDOMEN: Soft, nontender, nondistended. EXTREMITIES: No clubbing, cyanosis, or edema. NEUROLOGICAL: She is alert and oriented x4. LABORATORY DATA: Labs showed white count of 16.1, hemoglobin 8.6, hematocrit 30.1, platelet count 353,000. Sodium of 139, potassium 4.0, chloride 97, CO2 33, BUN 30, creatinine 1.79. Glycemia is ranging from 137-263. Microbiology: Urine culture is growing Escherichia coli, which is pansensitive except for Bactrim and ampicillin. IMPRESSION: 1. Lnfkk-pf-iwqobvn respiratory failure, hypoxic and hypercapnic, improved with BiPAP. The strip machine operator is setting her up for at home BiPAP treatment. 2. Altered mental status resolved. 3. Pgyun-zz-fgfixzn systolic and diastolic heart failure. 4. Interstitial lung disease. 5. Urinary tract infection with Escherichia coli. We are going to switch her to oral antibiotic. She will continue her current regimen with DuoNebs. She can be transferred to the telemetry floor and as soon as the in-home BiPAP is arranged she can be discharged home. Job ID: [id number]
[2019-06-27] MEDS: Saccharomyces boulardii 250 MG CAP PO SCH (16:23)
--- NOTE | 2019-06-27 16:57 | PRG ---
DATE OF SERVICE: 06/27/2019 SERVICE: Pulmonary Medicine. INTERVAL HISTORY: The patient is doing fine from respiratory standpoint. Whenever she takes a deep breath, she gets into a coughing fit. That being said, she denies any shortness of breath, fevers, or chills. She is comfortable watching a basketball game and has no specific complaints. PHYSICAL EXAMINATION: VITAL SIGNS: Afebrile, pulse 61, blood pressure 126/78, respirations 21, saturation 94%, currently on 3 L nasal cannula, which is her home rate. HEENT: Normocephalic and atraumatic. Sclerae white. Conjunctivae pink. Oral and nasal mucosa are moist without lesions. LUNGS: Decent air entry. No prolonged expiratory phase is present. Crackles are noted. HEART: Normal rate. Regular. ABDOMEN: Soft, nontender, and nondistended. Bowel sounds are positive. MUSCULOSKELETAL: No cyanosis or clubbing. No pitting in the bilateral lower extremities. NEUROLOGIC: Grossly nonfocal. DISCUSSION AND PLAN: WBC 16.1, hemoglobin 8.6, and platelets 353,000. Creatinine 1.79 and gently uptrending. Basic metabolic profile is otherwise stable or unremarkable. The urine cultures growing E. coli. ASSESSMENT: 1. Acute on chronic hypoxic and hypercapnic respiratory failure, resolved to baseline. 2. Interstitial lung disease. 3. Urinary tract infection secondary to gram-negative bravo. DISCUSSION AND PLAN: The patient is stable for transition out of the ICU to the floor. Because her cough is completely dry, it would be reasonable to suppress it. As such, I will put her on schedule Laila Schuler. Pulmonary will follow in this location. Job ID: [id number]
[2019-06-27] MEDS: Simvastatin 20 MG TAB PO SCH (20:26)
[2019-06-27] MEDS: Benzonatate 100 MG CAP PO SCH (20:26)
[2019-06-27] MEDS: traZODone HCl 50 MG TAB PO SCH (20:26)
[2019-06-27] MEDS: Melatonin 3 MG TAB PO SCH (20:26)
[2019-06-28] MEDS: Levothyroxine Sodium 75 MCG TAB PO SCH (05:55)
[2019-06-28] MEDS: HumaLOG 300 UNITS/3 ML VIAL SC PRN ×3 (05:56→21:01)
[2019-06-28] MEDS ORDERED: Ciprofloxacin 500 MG TAB PO SCH ×2 (07:51→08:00)
[2019-06-28] MEDS ORDERED: Dextrose 50% Abboject 50 ML SYRINGE SLOW IVP PRN (07:56)
[2019-06-28] MEDS ORDERED: Dextrose 5% in Water 1,000 ML IV PRN (07:56)
[2019-06-28] MEDS: Insulin Glargine 18 UNITS in Pre-Filled Syringe SC SCH (08:17)
[2019-06-28] MEDS: Amlodipine 5 MG TAB PO SCH (08:18)
[2019-06-28] MEDS: Benzonatate 100 MG CAP PO SCH ×3 (08:18→20:59)
[2019-06-28] MEDS: risperiDONE 1 MG TAB PO SCH ×2 (08:18→21:00)
[2019-06-28] MEDS: Furosemide 20 MG TAB PO SCH ×2 (08:19→20:59)
[2019-06-28] MEDS: Saccharomyces boulardii 250 MG CAP PO SCH (08:19)
[2019-06-28] MEDS: Metoprolol Tartrate 100 MG TAB PO SCH ×2 (08:19→21:00)
[2019-06-28] MEDS: predniSONE 20 MG TAB PO SCH (08:19)
[2019-06-28] MEDS: Ferrous Sulfate 325 MG TAB PO SCH (08:19)
[2019-06-28] MEDS: Potassium Chloride 20 MEQ TAB PO SCH (08:20)
[2019-06-28] MEDS: Alogliptin 25 MG TAB PO SCH (08:20)
[2019-06-28] MEDS: Polyethylene Glycol 3350 17 GM Packet PO SCH (08:28)
[2019-06-28] MEDS ORDERED: Loperamide HCl 2 MG CAP PO PRN (08:28)
[2019-06-28 08:35] LABS: #Eosinphils 0.2 thou/uL (0.0-0.7); #Lymphocytes 2.2 thou/uL (1.20-3.40); #Monocytes 1.6 thou/uL (0.11-0.59); #Neutrophils 11.2 thou/uL (1.40-6.50); %Basophils 0.3 % (0.0-1.0); %Eosinophils 1.1 % (0.0-10.0); %Lymphocytes 14.5 % (21.0-51.0); %Monocytes 10.6 % (0.0-10.0); %Neutrophils 73.5 % (42.0-75.0); Anion Gap 12 mmol/L (10-20); BUN (Urea Nitrogen) 25 mg/dL (9.8-20.1); Calc. Creatinine Clearance 47 mL/min (70-130); Calcium 8.7 mg/dL (7.8-10.44); Carbon Dioxide 33 mmol/L (23-31); Chloride 96 mmol/L (98-107); Estimated GFR-MDRD 48; Glucose 122 mg/dL (83-110); Hemoglobin 9.2 g/dL (12.0-16.0); Mean Corpuscular HGB CONC 28.9 g/dL (32.0-36.0); Mean Corpuscular Hemoglobin 26.2 pg (27.0-31.0); Mean Corpuscular Volume 90.6 fL (78.0-98.0); Mean Platelet Volume 7.9 fL (7.4-10.4); Platelet Count 323 thou/uL (130-400); Potassium 3.7 mmol/L (3.5-5.1); RBC Distribution Width 13.2 % (11.5-14.5); Red Blood Cell (RBC) Count 3.53 mill/uL (4.20-5.40); Sodium 137 mmol/L (136-145); White Blood Cell (WBC) Count 15.3 thou/uL (4.8-10.8)
--- NOTE | 2019-06-28 08:39 | PRG ---
DATE OF SERVICE: 06/28/2019 SUBJECTIVE: The patient is seen and examined at the bedside. She complains about diarrhea. She had multiple watery bowel movements. According to the nurse, it is more like soft stool, not diarrhea. Her appetite is fair. Her breathing is improved. OBJECTIVE: VITAL SIGNS: Blood pressure is 138/82, pulse is 61, temperature is 97.8, respiratory rate is 22, and O2 saturation is 93% on 4 L by nasal cannula. HEENT: Her head is atraumatic and normocephalic. Eyes are PERRLA. Sclerae are nonicteric. Oral mucosa is moist. NECK: Supple. LUNGS: Diffuse bilateral dry crackles all over her both lungs. HEART: S1 and S2 normal. No S3. No S4. ABDOMEN: Soft, nontender, obese, and nondistended. EXTREMITIES: No clubbing, cyanosis, or edema. NEUROLOGICAL: She follows my commands. She moves her all 4 extremities. LABORATORY DATA: None today. IMPRESSION AND PLAN: 1. Acute on chronic respiratory failure, hypoxic and hypercapnic, improved with BiPAP. Mending Carrier is setting her up at home for BiPAP treatment. 2. Altered mental status, resolved. 3. Acute on chronic systolic and diastolic heart failure. 4. Interstitial lung disease. 5. Urinary tract infection with Escherichia coli on Cipro twice a day. 6. Diarrhea. She was started on probiotic and her Zosyn was changed to Cipro. We will use p.r.n. Imodium. Job ID: [id number]
--- NOTE | 2019-06-28 17:53 | PRG ---
DATE OF SERVICE: 06/28/2019 SERVICE: Pulmonary Medicine. INTERVAL HISTORY: The patient is doing really well from respiratory standpoint. Breathing comfortably. She indicates that her shortness of breath, dyspnea on exertion, and cough have all returned to normal. She is not bringing up any phlegm. Otherwise, there has been no interval change to her condition. PHYSICAL EXAMINATION: VITAL SIGNS: Afebrile, pulse 62, blood pressure 109/63, respirations 18,and saturation 93% on room air. GENERAL: The patient is awake and alert, in no apparent distress. LUNGS: Crackles are present. No prolonged expiratory phase or wheezing is appreciated. HEART: Normal rate and regular. ABDOMEN: Soft, nontender, and nondistended. Bowel sounds are positive. MUSCULOSKELETAL: No cyanosis or clubbing. There is only trace pitting in the bilateral lower extremities. NEUROLOGIC: Grossly nonfocal. LABORATORY DATA: WBC 15.3, hemoglobin 9.2, and platelets 323,000. Creatinine 1.28 and gently downtrending, BUN 25, and bicarb 33. Basic metabolic profile is otherwise unremarkable. E coli is growing in the urine. ASSESSMENT: 1. Hwmte-uy-fmoloin hypoxic and hypercapnic respiratory failure, back to baseline. 2. Interstitial lung disease. 3. Urinary tract infection secondary to gram-negative bravo. DISCUSSION AND PLAN: The patient is doing absolutely wonderful from a respiratory standpoint. She is essentially back to baseline. We are going to set her up with a home ventilator on discharge from this hospital stay. On discharge from the hospital, we can continue prednisone at 20 mg daily for the next 2 weeks. Course of antibiotics can be completed directed at her urinary tract infection. She will return to clinic to see me within 2 weeks with a download off her new ventilator. Job ID: [id number]
[2019-06-28] MEDS: Ciprofloxacin 500 MG TAB PO SCH (20:59)
[2019-06-28] MEDS: traZODone HCl 50 MG TAB PO SCH (21:00)
[2019-06-28] MEDS: Simvastatin 20 MG TAB PO SCH (21:00)
[2019-06-28] MEDS: Melatonin 3 MG TAB PO SCH (21:00)
[2019-06-29] MEDS: Ciprofloxacin 500 MG TAB PO SCH ×2 (05:46→20:54)
[2019-06-29] MEDS: Levothyroxine Sodium 75 MCG TAB PO SCH (05:46)
[2019-06-29 06:03] LABS: #Basophils 0.1 thou/uL (0.0-0.2); #Lymphocytes 2.1 thou/uL (1.20-3.40); #Monocytes 0.9 thou/uL (0.11-0.59); #Neutrophils 11.6 thou/uL (1.40-6.50); %Basophils 0.5 % (0.0-1.0); %Eosinophils 0.3 % (0.0-10.0); %Lymphocytes 14.2 % (21.0-51.0); %Monocytes 6.4 % (0.0-10.0); %Neutrophils 78.6 % (42.0-75.0); Hemoglobin 8.9 g/dL (12.0-16.0); Mean Corpuscular HGB CONC 28.7 g/dL (32.0-36.0); Mean Corpuscular Hemoglobin 25.4 pg (27.0-31.0); Mean Corpuscular Volume 88.5 fL (78.0-98.0); Mean Platelet Volume 8.2 fL (7.4-10.4); Platelet Count 337 thou/uL (130-400); RBC Distribution Width 13.2 % (11.5-14.5); Red Blood Cell (RBC) Count 3.51 mill/uL (4.20-5.40); White Blood Cell (WBC) Count 14.7 thou/uL (4.8-10.8)
[2019-06-29 06:22] LABS: Anion Gap 10 mmol/L (10-20); BUN (Urea Nitrogen) 31 mg/dL (9.8-20.1); Calc. Creatinine Clearance 40 mL/min (70-130); Calcium 8.9 mg/dL (7.8-10.44); Carbon Dioxide 34 mmol/L (23-31); Chloride 97 mmol/L (98-107); Estimated GFR-MDRD 39; Glucose 108 mg/dL (83-110); Potassium 4.2 mmol/L (3.5-5.1); Sodium 137 mmol/L (136-145)
[2019-06-29] MEDS: Insulin Glargine 18 UNITS in Pre-Filled Syringe SC SCH (09:48)
[2019-06-29] MEDS: Benzonatate 100 MG CAP PO SCH ×3 (09:49→20:55)
[2019-06-29] MEDS: Saccharomyces boulardii 250 MG CAP PO SCH (09:49)
[2019-06-29] MEDS: Alogliptin 25 MG TAB PO SCH (09:50)
[2019-06-29] MEDS: Amlodipine 5 MG TAB PO SCH (09:50)
[2019-06-29] MEDS: Furosemide 20 MG TAB PO SCH ×2 (09:51→20:55)
[2019-06-29] MEDS: predniSONE 20 MG TAB PO SCH (09:51)
[2019-06-29] MEDS: Potassium Chloride 20 MEQ TAB PO SCH (09:51)
[2019-06-29] MEDS: Metoprolol Tartrate 100 MG TAB PO SCH ×2 (09:51→20:56)
[2019-06-29] MEDS: Ferrous Sulfate 325 MG TAB PO SCH (09:52)
[2019-06-29] MEDS: Polyethylene Glycol 3350 17 GM Packet PO SCH (09:56)
[2019-06-29] MEDS: risperiDONE 1 MG TAB PO SCH ×2 (09:56→20:56)
--- NOTE | 2019-06-29 10:59 | PDOC.HOSPP ---
- Subjective Encounter Date: 06/29/19 Encounter Time: 08:10 Subjective: Patient seen and examined. No overnight events - Objective Vital Signs & Weight: Vital Signs (12 hours) Temp Pulse Resp BP BP BP Pulse Ox 06/29/19 10:21 80 18 96 06/29/19 09:50 61 136/70 06/29/19 07:08 98.7 F 61 16 136/70 97 06/29/19 06:35 93 L 06/29/19 06:34 59 L 16 93 L 06/29/19 04:00 97.9 F 60 20 155/84 H 94 L 06/29/19 00:25 98.1 F 64 20 132/79 94 L Weight Weight 203 lb 14.4 oz Most Recent Monitor Data Heart Rate from ECG 61 NIBP 142/70 NIBP BP-Mean 94 Respiration from ECG 21 SpO2 92 I&O: 06/28/19 06/29/19 06/30/19 06:59 06:59 06:59 Intake Total 1600 480 Output Total 300 Balance 1300 480 Result Diagrams: 06/29/19 05:00 06/29/19 05:00 Additional Labs: Accuchecks 06/29/19 06/29/19 06/28/19 10:21 05:49 21:01 POC Glucose 140 H 116 H 225 H 06/28/19 06/28/19 06/28/19 15:28 10:58 05:02 POC Glucose 335 H 146 H 152 H Hospitalist ROS - Review of Systems ROS unobtainable: due to mental status - Medication Medications: Active Medications Generic Name Dose Route Start Last Admin Trade Name Freq PRN Reason Stop Dose Admin Albuterol/Ipratropium 3 ml 06/24/19 07:00 06/29/19 10:21 Duoneb NEB 3 ml [id number] LAYTON Administration Alogliptin Benzoate 12.5 mg 06/26/19 09:00 06/29/19 09:50 Alogliptin PO 12.5 mg DAILY L[facility]TON Administration Amlodipine Besylate 5 mg 06/26/19 09:00 06/29/19 09:50 Norvasc PO 5 mg DAILY LAYTON Administration Benzonatate 100 mg 06/27/19 21:00 06/29/19 09:49 Tessalon PO 100 mg TID LAYTON Administration Ciprofloxacin 500 mg 06/28/19 20:00 06/29/19 05:46 Cipro PO 500 mg 06,1999 LAYTON Administration Ferrous Sulfate 325 mg 06/26/19 09:00 06/29/19 09:52 Feosol PO 325 mg DAILY LAYTON Administration Furosemide 20 mg 06/26/19 09:00 06/29/19 09:51 Lasix PO 20 mg BID LAYTON Administration Insulin Glargine 18 units/ 0.18 mls @ 0 mls/hr 06/26/19 09:00 06/29/19 09:48 Miscellaneous Medication SC 0.18 mls QAM LAYTON Administration Insulin Human Lispro 0 units 06/28/19 07:56 06/28/19 21:01 Humalog SC 4 unit .MODERATE SLIDING SC PRN Administration Moderate Correctional Scale Levothyroxine Sodium 75 mcg 06/26/19 06:00 06/29/19 05:46 Synthroid PO 75 mcg 0600 LAYTON Administration Melatonin 3 mg 06/25/19 21:00 06/28/19 21:00 Melatonin PO 3 mg HS LAYTON Administration Metoprolol Tartrate 100 mg 06/25/19 21:00 06/29/19 09:51 Lopressor PO 100 mg BID L[facility]TON Administration Pantoprazole Sodium 40 mg 06/24/19 09:00 06/29/19 09:52 Protonix PO 40 mg DAILY L[facility]TON Administration Polyethylene Glycol 17 gm 06/24/19 09:00 06/29/19 09:56 Miralax PO Not Given DAILY [facility] Potassium Chloride 20 meq 06/26/19 08:00 06/29/19 09:51 K-Dur PO 20 meq QAM-WM LAYTON Administration Prednisone 40 mg 06/26/19 08:00 06/29/19 09:51 Prednisone PO 40 mg QAM-WM L[facility]TON Administration Risperidone 2 mg 06/25/19 21:00 06/29/19 09:56 Risperidone PO 2 mg BID LAYTON Administration Saccharomyces Boulardii 250 mg 06/27/19 15:15 06/29/19 09:49 Florastor PO 250 mg DAILY LAYTON Administration Simvastatin 10 mg 06/25/19 21:00 06/28/19 21:00 Zocor PO 10 mg HS LAYTON Administration Sodium Chloride 10 ml 06/28/19 09:00 06/29/19 10:01 Flush - Normal Saline IVF 10 ml Q12HR LAYTON Administration Trazodone HCl 50 mg 06/25/19 21:00 02/02/20 21:00 Desyrel PO 50 mg HS LAYTON Administration - Exam General Appearance: NAD, awake alert Eye: PERRL, anicteric sclera ENT: normocephalic atraumatic, no oropharyngeal lesions Neck: supple, symmetric, no JVD Heart: RRR, no murmur, no gallops Respiratory: no wheezes, no ronchi Gastrointestinal: soft, non-tender, non-distended, normal bowel sounds Extremities: no cyanosis, no clubbing Skin: normal turgor, no lesions Neurological: no focal deficits Musculoskeletal: normal tone Psychiatric: normal affect Hosp A/P (1) Acute on chronic respiratory failure with hypoxia Code(s): J96.21 - ACUTE AND CHRONIC RESPIRATORY FAILURE WITH HYPOXIA Status: Acute (2) Anemia, normocytic normochromic Code(s): D64.9 - ANEMIA, UNSPECIFIED Status: Chronic (3) Diabetes type 2, controlled Code(s): E11.9 - TYPE 2 DIABETES MELLITUS WITHOUT COMPLICATIONS Status: Chronic (4) Dyslipidemia Code(s): E78.5 - HYPERLIPIDEMIA, UNSPECIFIED Status: Chronic (5) Hypertension Code(s): I10 - ESSENTIAL (PRIMARY) HYPERTENSION Status: Chronic (6) Hypothyroidism Code(s): E03.9 - HYPOTHYROIDISM, UNSPECIFIED Status: Chronic (7) CARLOS on CPAP Code(s): G47.33 - OBSTRUCTIVE SLEEP APNEA (ADULT) (PEDIATRIC); Z99.89 - DEPENDENCE ON OTHER ENABLING MACHINES AND DEVICES Status: Chronic (8) Obesity (BMI 30-39.9) Code(s): E66.9 - OBESITY, UNSPECIFIED Status: Chronic (9) UTI (urinary tract infection) Status: Acute - Plan old records reviewed/req, continue antibiotics, PT/OT, health social work professor, respiratory therapy 06/29/19 continue respiratory therapy arrangement for bipap medication reviewed and continue to provide supportive care and symptomatic treatment family service caseworker for discharge planning
--- NOTE | 2019-06-29 14:32 | PRG ---
DATE OF SERVICE: 06/29/2019 SERVICE: Pulmonary Medicine. INTERVAL HISTORY: The patient is doing really well from respiratory standpoint. Breathing comfortably. No complaints of chest discomfort, nausea, or vomiting. Her cough is resolved with the Tessalon Perles. She is not bringing up any phlegm. Her shortness of breath when she exerts herself is resolved to baseline. PHYSICAL EXAMINATION: VITAL SIGNS: Afebrile, pulse 80, blood pressure 136/70, respirations 18, and saturation 96% on 3 L nasal cannula. GENERAL: The patient is awake and alert, in no apparent distress. LUNGS: Good air entry bilaterally with minimal dependent crackles present. HEART: Normal rate, regular. ABDOMEN: Soft, nontender, nondistended. Bowel sounds are positive. MUSCULOSKELETAL: No cyanosis or clubbing. There is trace 1+ pitting in the bilateral lower extremities. NEUROLOGIC: Grossly nonfocal. LABORATORY DATA: WBC 14.7, hemoglobin 8.9, and platelets 337,000. Creatinine 1.53, which is gently up trending. BUN 31. Basic metabolic profile is otherwise unremarkable. E coli is growing in the urine, which is a fairly sensitive organism. C diff antigen and toxin are negative. ASSESSMENT: 1. Acute on chronic hypoxic and hypercapnic respiratory failure, back to baseline. 2. Interstitial lung disease. 3. Urinary tract infection secondary to Escherichia coli. DISCUSSION AND PLAN: The patient is doing fine from respiratory standpoint. She will have a home ventilator on discharge from the hospital. I will have her return to clinic as previously directed. I would like for her to go out on a slow tapering dose of prednisone. She should be on 40 mg for 2 weeks followed by 10 mg for 2 weeks followed by 10 mg every other day for a week and then it can be discontinued. At this point, she has no further requirements for inpatient Pulmonary or Critical Care opinion as she has returned to her usual state of health, and I will sign off. Please call with additional questions or concerns through time. Job ID: [id number]
[2019-06-29] MEDS: HumaLOG 300 UNITS/3 ML VIAL SC PRN ×2 (17:46→21:00)
[2019-06-29] MEDS: Melatonin 3 MG TAB PO SCH (20:55)
[2019-06-29] MEDS: Simvastatin 20 MG TAB PO SCH (20:55)
[2019-06-29] MEDS: traZODone HCl 50 MG TAB PO SCH (20:58)
[2019-06-30] MEDS: HumaLOG 300 UNITS/3 ML VIAL SC PRN (06:17)
[2019-06-30] MEDS: Levothyroxine Sodium 75 MCG TAB PO SCH (06:17)
[2019-06-30] MEDS: Ciprofloxacin 500 MG TAB PO SCH (06:17)
[2019-06-30] MEDS: Potassium Chloride 20 MEQ TAB PO SCH (08:47)
[2019-06-30] MEDS: predniSONE 20 MG TAB PO SCH (08:47)
[2019-06-30] MEDS: Saccharomyces boulardii 250 MG CAP PO SCH (08:49)
[2019-06-30] MEDS: Alogliptin 25 MG TAB PO SCH (08:49)
[2019-06-30] MEDS: risperiDONE 1 MG TAB PO SCH (08:50)
[2019-06-30] MEDS: Metoprolol Tartrate 100 MG TAB PO SCH (08:50)
[2019-06-30] MEDS: Furosemide 20 MG TAB PO SCH (08:50)
[2019-06-30] MEDS: Ferrous Sulfate 325 MG TAB PO SCH (08:50)
[2019-06-30] MEDS: Benzonatate 100 MG CAP PO SCH (08:50)
[2019-06-30] MEDS: Amlodipine 5 MG TAB PO SCH (08:50)
[2019-06-30] MEDS: Insulin Glargine 18 UNITS in Pre-Filled Syringe SC SCH (08:50)
[2019-06-30] MEDS: Polyethylene Glycol 3350 17 GM Packet PO SCH (08:51)
[2019-06-30 11:27] VITALS: BP 113/60; TEMP 97.6
--- NOTE | 2019-06-30 12:12 | DIS ---
DATE OF ADMISSION: 06/24/2019 DATE OF DISCHARGE: 06/30/2019 PRIMARY CARE PHYSICIAN: Brian Tavarez MD DISCHARGE DISPOSITION: Home with home health and BiPAP. PRIMARY DISCHARGE DIAGNOSES: 1. Acute on chronic respiratory failure with hypoxia. 2. Interstitial lung disease. 3. Urinary tract infection. SECONDARY DISCHARGE DIAGNOSES: 1. Chronic systolic and diastolic congestive heart failure. 2. Chronic respiratory failure with hypoxia. 3. Physical deconditioning. 4. Monoclonal paraproteinemia. 5. Diabetes type 2. 6. Hypertension. 7. Dyslipidemia. 8. Hypothyroidism. 9. Obesity with body mass index 36. 10. Obstructive sleep apnea, on CPAP. 11. Restrictive airway disease. PRIMARY PROCEDURE/OPERATION: None. RADIOLOGICAL INVESTIGATION: CT angiography on admission showed no evidence of pulmonary embolism, chronic-appearing interstitial fibrotic lung changes. Chest x-ray showed similar finding. SIGNIFICANT LABORATORY DATA: WBC 14.7, hemoglobin 8.9, platelet 337. D-dimer 2.38. Sodium 137, potassium 4.2, BUN 31, creatinine 1.53, calcium 8.9, CO2 62.9. Urinalysis suggestive of UTI. Urine culture grew E coli. C. diff negative. DISCHARGE MEDICATION: 1. Toujeo SoloSTAR 18 units subcu in the morning. 2. Iron 65 mg daily. 3. Synthroid 75 mcg p.o. daily. 4. Metoprolol 100 mg b.i.d. 5. Risperidone 2 mg b.i.d. 6. Zocor 10 mg p.o. daily. 7. Januvia 100 mg daily. 8. Amlodipine 5 mg daily. 9. Tessalon 100 mg t.i.d. p.r.n. 10. Cipro 500 mg p.o. b.i.d. for 3 days. 11. Lasix 20 mg b.i.d. 12. DuoNeb q.6 hourly p.r.n. 13. Melatonin 3 mg p.o. at bedtime. 14. Prednisone 20 mg p.o. daily for two weeks, then 10 mg daily for 1 week, then 10 mg every other day for 1 week. 15. Trazodone 50 mg p.o. at bedtime p.r.n. CONTRAINDICATION: None. CODE STATUS: Full code. INPATIENT ENVIRONMENTAL GEOLOGIST: Dr. Alexis was following while in hospital. TEST RESULTS PENDING ON DISCHARGE: None. ALLERGIES: CIMETIDINE. DISCHARGE PLAN: Posthospital, the patient will follow up with Dr. Alexis in 2 weeks. The patient has appointment with primary care physician in one week. The patient will follow up with [facility]. HOSPITAL COURSE: An 84-year-old female with above-mentioned medical problem, who was admitted by Dr. Maged Clifton, on June 24, 2019. Please see his H and P for further details. The patient presented to emergency room with altered mental status and shortness of breath. The patient was hypoxic and she was also found to be hypercapnic while in the emergency room. The patient was admitted to [facility] and she was treated with BiPAP. Subsequently, the patient was stabilized. Pulmonary group was following while in hospital. The patient was also treated with Lasix for possible systolic and diastolic congestive heart failure. Her acute on chronic respiratory failure predominantly related with underlying chronic lung disease. The patient was stabilized in ICU and then was transferred to regular floor. Pulmonary/Critical Care group recommended to continue with BiPAP as an outpatient basis. That was arranged before discharge. The patient has chronic physical deconditioning and while in hospital, her UTI was treated with Cipro and we are going to finish complete course of therapy. She will continue all her previous medication. Dr. Alexis recommended slow tapering of prednisone on this patient. At this point, the patient appears stable for discharge and all consultants cleared her for discharge as well. Based on her comorbidities, the patient is high risk for recurrent admission. The patient is seen and examined at bedside today. PHYSICAL EXAMINATION: VITAL SIGNS: Currently, temperature 97.9, pulse 60, respiratory rate 18, saturation 97% on 3 L nasal cannula, blood pressure 131/67. Weight 204 pounds. GENERAL: The patient is alert, awake, in no obvious acute distress, chronically ill. HEENT: Head, normocephalic atraumatic. Eyes, pupils round and reactive to light. Extraocular muscle intact. ENT, oropharynx within normal limits. Moist mucous membranes. No oral lesion. No pharyngeal erythema. No exudate. NECK: Supple. No JVD. No thyromegaly. No carotid bruit. LUNGS: Clear to auscultation without any rhonchi or rales. CARDIAC: S1, S2 regular. No murmur. No gallop. No rub. NEUROLOGICAL: The patient is up to her baseline level. Try BiPAP ventilator. It has been arranged with the help of case finisher, and the patient is medically stable for discharge. Though the patient has multiple comorbidities and based on that, the patient is high risk for recurrent admission. Job ID: [id number]
--- NOTE | 2019-07-02 10:36 | PQF ---
EDYTA ALEXANDER SALIM NOORJIBHAI MD [id number] PIPER LÓPEZ [id number] CLINICAL DOCUMENTATION CLARIFICATION FORM: POST DISCHARGE Addendum to original discharge summary date: ____ Late entry note date: __ DATE:07/02/2019 ATTN: LES OROPEZA MD Please exercise your independent, professional judgment in responding to the clarification form. Clinical indicators are provided on the bottom of this form for your review Please check appropriate box(s): Conflicting documentation was noted in the Medical Record, please clarify if patient is being treated/monitored for: [ ] Acute on chronic systolic and diastolic congestive heart failure [ x ] Chronic systolic and diastolic congestive heart failure [ ] Other diagnosis [ ] Unable to determine For continuity of documentation, please document condition throughout progress notes and discharge summary. Thank You. CLINICAL INDICATORS - SIGNS / SYMPTOMS/ LABS Acute on chronic systolic and diastolic congestive heart failure-Documented in PN on 06/28 by Gary Hui MD Chronic systolic and diastolic congestive heart failure-Documented in Discharge summary on 06/30 by Ariane Farooq Acute on chronic respiratory failure with hypoxia-Documented in Discharge summary on 06/30 by Ariane Farooq SOB-Documented in H&P on 06/24 by Maged Clifton MD BNP-217.2-Documented in H&P on 06/24 by Maged Clifton MD RISK FACTORS Acute on chronic respiratory failure with hypoxia-Documented in Discharge summary on 06/30 by Ariane Farooq TREATMENT Lasix 40 mg IV-Documented in Discharge summary on 06/30 by Ariane Farooq [employer] Crew Member [employer] Win[employer] (This form is maintained as a part of the permanent medical record) 2014 [employer]. All Rights Reserved [email or web address] [phone] LUIS
== END 2019-06-30 11:50 | disposition home health service (06) | DRG 189 ==
LOC: ERS 21:28 → ERHOLD 06-24 02:39 → IMCU/EMU 06-24 14:47 → SJJU 06-27 17:31
PROVIDERS: ADMIT Internal Medicine; ATTEND Internal Medicine
PROC: 5A09357 Assistance with Respiratory Ventilation, Less than 24 Consecutive Hours, Continuous Positive Airway Pressure (ICD-10-PCS; principal; 2019-06-24)
DX: J96.22 Acute and chronic respiratory failure with hypercapnia (principal); N39.0 Urinary tract infection, site not specified; J84.9 Interstitial pulmonary disease, unspecified; I50.42 Chronic combined systolic (congestive) and diastolic (congestive) heart failure; J96.21 Acute and chronic respiratory failure with hypoxia; I11.0 Hypertensive heart disease with heart failure; D47.2 Monoclonal gammopathy; E11.9 Type 2 diabetes mellitus without complications; E78.5 Hyperlipidemia, unspecified; E03.9 Hypothyroidism, unspecified; G47.33 Obstructive sleep apnea (adult) (pediatric); E66.9 Obesity, unspecified; Z68.36 Body mass index [BMI] 36.0-36.9, adult; B96.20 Unspecified Escherichia coli [E. coli] as the cause of diseases classified elsewhere; Z90.49 Acquired absence of other specified parts of digestive tract; F20.9 Schizophrenia, unspecified; Z87.891 Personal history of nicotine dependence; Z88.8 Allergy status to other drugs, medicaments and biological substances; R19.7 Diarrhea, unspecified; D64.9 Anemia, unspecified; Z95.0 Presence of cardiac pacemaker
CPT/HCPCS: 36415; 36416; 51701; 71045; 71275; 80048; 80053; 81003; 81015; 82805; 83735; 83880; 84484; 85025; 85379; 87077; 87086; 87186; 87324; 87449; 93005; 93798; 94640; 94660; 96365; 96375; 99292; A4353; J0696; J1815; J1940; J2543; J2920; J3370; J3490; J7512; J7620; Q9967

== ENCOUNTER 2019-11-02 09:26 | Emergency (ER) | payer MEDICARE, OTHER ==
[2019-11-02 10:08] LABS: #Eosinphils 0.3 thou/uL (0.0-0.7); #Lymphocytes 3.5 thou/uL (1.20-3.40); #Monocytes 1.1 thou/uL (0.11-0.59); #Neutrophils 10.9 thou/uL (1.40-6.50); %Basophils 0.2 % (0.0-1.0); %Monocytes 7.1 % (0.0-10.0); %Neutrophils 68.8 % (42.0-75.0); Hemoglobin 9.5 g/dL (12.0-16.0); Mean Corpuscular HGB CONC 28.9 g/dL (32.0-36.0); Mean Corpuscular Hemoglobin 26.2 pg (27.0-31.0); Mean Corpuscular Volume 90.7 fL (78.0-98.0); Mean Platelet Volume 8.8 fL (7.4-10.4); Platelet Count 270 thou/uL (130-400); RBC Distribution Width 15.5 % (11.5-14.5); Red Blood Cell (RBC) Count 3.63 mill/uL (4.20-5.40); White Blood Cell (WBC) Count 15.9 thou/uL (4.8-10.8)
[2019-11-02 10:24] LABS: ALT (SGPT) 13 U/L (8-55); AST (SGOT) 15 U/L (5-34); Albumin 3.4 g/dL (3.4-4.8); Alkaline Phosphatase 54 U/L (40-110); Anion Gap 14 mmol/L (10-20); BUN (Urea Nitrogen) 32 mg/dL (9.8-20.1); Bilirubin, Total 0.3 mg/dL (0.2-1.2); Calc. Creatinine Clearance 0 mL/min (70-130); Carbon Dioxide 32 mmol/L (23-31); Chloride 94 mmol/L (98-107); Estimated GFR-MDRD 34; Globulin 3.3 g/dL (2.4-3.5); Glucose 219 mg/dL (83-110); Potassium 3.7 mmol/L (3.5-5.1); Protein, Total 6.7 g/dL (6.0-8.3); Sodium 136 mmol/L (136-145)
[2019-11-02 10:52] LABS: Anisocytosis MODERATE=16-30 cells (100X) (0-5/hpf); MDiff Complete? YES; Platelet Morphology Comment Appears Adequate; Polychromasia MODERATE = 3-4 cells (100X) (0-2/hpf)
--- NOTE | 2019-11-02 12:57 | RAD ---
FRONTAL RADIOGRAPH CHEST: Date: 11-02-2019 Comparison: 06-23-2019 History: Syncope. FINDINGS: Stable dual-lead transvenous pacing device. Stable enlargement of the cardiac silhouette. There is pu lmonary vascular congestion. There is coarse increased linear interstitial density in the inferior ri ght upper lobe bilateral perihilar regions and both lung bases, not significantly changed when compar ed to the 06-23-2019 exam. IMPRESSION: Stable portable chest radiograph as detailed above. POS: YUE
--- NOTE | 2019-11-02 13:52 | CT ---
CT ANGIOGRAM OF THE CHEST: DATE: 11/02/2019. COMPARISON: 06/23/2019. HISTORY: Syncope. TECHNIQUE: Axial CT imaging at 2.5 mm intervals from the thoracic inlet through the upper abdomen with Iv contra st using CT angiogram protocol. Coronal and sagittal 3D reformatted imaging obtained. FINDINGS: Limited assessment of the upper abdomen appears unremarkable. There is a dual-lead transvenous pacing device inserted via a left-sided approach. No axillary lymphadenopathy. Nonspecific mildly enlarged prevascular lymph nodes are noted measuring up to 1.2 cm. Mildly enlarged left hilar lymph node noted measuring 1.2 cm. There are a few mildly enlarged right paratracheal lymph nodes measuring up to approximately 1 cm. There is no significant pleural, pericardial, or mediastinal fluid. The heart appears enlarged. There is no evidence for a pulmonary arterial filling defect on either side to suggest the presence o f an acute pulmonary arterial embolism. There is scattered coronary arterial calcification seen. There is no pneumothorax noted. Extensive fibrotic changes are noted within the lung parenchyma bilaterally with coarse linear inters titial density seen peripherally within bilateral upper lobes and the right middle lobe as well as ri ght middle lobe bronchiectatic change and subpleural cystic changes within the right upper lobe, righ t middle lobe, and bilateral lower lobes. Motion artifact limits detailed assessment of both lung ba ses. Mild ground-glass opacity is noted within the lung bases which may signify a mild degree of inf iltrate or may be on the basis of volume loss. Review of the osseous structures demonstrates no worrisome lytic or blastic bone lesion. IMPRESSION: No evidence for pulmonary arterial embolism. Numerous chronic findings as detailed above. POS: YUE
[2019-11-02] MEDS ORDERED: Iopamidol-370 76% 500 ML 1 ML ONE (15:37)
== END 2019-11-02 13:14 | disposition home or self-care (01) ==
LOC: ERS 09:26
DX: J18.9 Pneumonia, unspecified organism (principal); R55 Syncope and collapse; I11.0 Hypertensive heart disease with heart failure; I50.9 Heart failure, unspecified; E11.9 Type 2 diabetes mellitus without complications; D64.9 Anemia, unspecified; F32.9 Major depressive disorder, single episode, unspecified; F20.9 Schizophrenia, unspecified; Z87.891 Personal history of nicotine dependence
CPT/HCPCS: 71045; 71275; 80053; 83880; 84484; 85025; 93005; 94760; Q9967

== ENCOUNTER 2019-12-05 01:00 | Emergency (ER) | payer MEDICARE, OTHER ==
[2019-12-05] MEDS ORDERED: EPINEPHrine 1 MG/10 ML Abboject SYRINGE ONE (12:47)
[2019-12-05] MEDS ORDERED: Calcium Chloride 1 GM/10 ML Abboject SYRINGE ONE (12:47)
== END 2019-12-05 01:09 | disposition expired ==
LOC: ERS 01:00
DX: I46.9 Cardiac arrest, cause unspecified (principal); I11.0 Hypertensive heart disease with heart failure; I50.9 Heart failure, unspecified; D64.9 Anemia, unspecified; F20.9 Schizophrenia, unspecified; Z87.891 Personal history of nicotine dependence
CPT/HCPCS: 92950; 96374; 96375; J0171